=== PATIENT | female | born 1940 | race Caucasian/White ===

== ENCOUNTER 2017-12-01 14:09 | Inpatient (IN) | payer MEDICARE, BC ==
[2017-12-01 14:27] LABS: Glucose,Whole Blood 94 mg/dL (75-99)
--- NOTE | 2017-12-01 14:39 | ED ---
General Adult HPI - General Chief complaint: Neuro Symptoms/Deficit Stated complaint: Facial Numbness Source: patient Mode of arrival: ambulatory Limitations: no limitations - History of Present Illness Initial comments: Dictation was produced using [employer] dictation software. please excuse any grammatical, word or spelling errors. Chief Complaint: 77-year-old female with no significant past medical history presents with left facial droop History of Present Illness: 76-year-old female with no significant past medical history presents with left facial droop. Patient was at lunch with her family at approximately noon when her family noticed her facial droop however this was upon first encounter. Patient does not know when her facial droop started. She does not complain of any other symptoms. She does not know exactly when her symptoms started. Patient denies any other neuro deficits. She is accompanied by family who does not notice any confusion or ataxia. Denies any history of CVA or TIAs in the past. The ROS documented in this emergency department record has been reviewed and confirmed by me. Those systems with pertinent positive or negative responses have been documented in the HPI. All other systems are other negative and/or noncontributory. - Related Data Home Medications Medication Instructions Recorded Confirmed Biotin 5 mg PO DAILY 12/01/17 12/01/17 Cholecalciferol (Vitamin D3) 2,000 unit PO DAILY 12/01/17 12/01/17 [Vitamin D3] Cinnamon Bark [Cinnamon] 500 mg PO DAILY 12/01/17 12/01/17 Cyanocobalamin (Vitamin B-12) 5,000 mcg PO MOFR 12/01/17 12/01/17 [Vitamin B12] Folic Acid(Unknown) 1 tab PO DAILY 12/01/17 12/01/17 Allergies Allergy/AdvReac Type Severity Reaction Status Date / Time amoxicillin Allergy Rash/Hives Verified 12/01/17 15:00 codeine Allergy Rash/Hives/ Verified 12/01/17 15:00 Hallucinati ons morphine Allergy Rash/Hives/ Verified 12/01/17 15:00 Hallucinati ons Penicillins Allergy Rash/Hives Verified 12/01/17 15:00 ondansetron [From Zofran] AdvReac Nausea & Verified 12/01/17 15:00 Vomiting Review of Systems ROS Statement: Those systems with pertinent positive or pertinent negative responses have been documented in the HPI. ROS Other: All systems not noted in ROS Statement are negative. Past Medical History Past Medical History: No Reported History History of Any Multi-Drug Resistant Organisms: None Reported Past Surgical History: Hysterectomy Additional Past Surgical History / Comment(s): lymph node removed on the lung, ovarian cyst removal left side Past Psychological History: No Psychological Hx Reported Smoking Status: Never smoker Past Alcohol Use History: None Reported Past Drug Use History: None Reported General Exam - General Exam Comments Initial Comments: PHYSICAL EXAM: General Impression: Alert and oriented x3, not in acute distress HEENT: Normocephalic atraumatic, extra-ocular movements intact, pupils equal and reactive to light bilaterally, mucous membranes moist. Cardiovascular: Heart regular rate and rhythm, S1&S2 audible, no murmurs, rubs or gallops Chest: Lungs clear to auscultation bilaterally, no rhonchi, no wheeze, no rales Abdomen: Bowel sounds present, abdomen soft, non-tender, non-distended, no organomegaly Musculoskeletal: Pulses present and equal in all extremities, no peripheral edema Motor: Power 5/5 bilaterally, no focal deficits noted Neurological: Left lower face facial droop Skin: Intact with no visualized rashes Psych: Normal affect and mood Limitations: no limitations Course Vital Signs 12/01/17 12/01/17 14:12 15:19 Temperature 98.4 F Pulse Rate 80 78 Respiratory 18 18 Rate Blood Pressure 186/77 169/83 O2 Sat by Pulse 96 96 Oximetry Medical Decision Making - Medical Decision Making ED course: 37-year-old female with no significant comorbidities presents with clinical presentation suspicious for CVA. As upon arrival shows blood pressure 186/77. Physical examination shows left facial droop. No other neuro deficits noted. No clear time of onset of her strokelike symptoms. Patient not a candidate for TPA at this time.Laboratory evaluation obtained. CBC unremarkable. Coag panel unremarkable. Metabolic panel shows no acute processes. Cardiac enzymes are negative, urinalysis is negative. EKG shows no acute processes. Patient given an aspirin. Computed tomography scan was obtained showing no acute processes. Patient given aspirin. Patient be admitted for CVA. EKG Interpretation: A 12 lead EKG was obtained. It was interpreted by myself and attending physician. There is a P wave before every QRS complex. Rate is 77. Rhythm is normal sinus rhythm, UT interval 152, QS 90, QTc 445. QT is not prolonged. No ST segment depression or elevation. Overall, this EKG is unremarkable - Lab Data Result diagrams: 12/01/17 14:55 12/01/17 14:55 Lab Results 12/01/17 12/01/17 12/01/17 Range/Units 14:25 14:55 14:55 WBC 5.1 (3.8-10.6) k/uL RBC 4.59 (3.80-5.40) m/uL Hgb 13.6 (11.4-16.0) gm/dL Hct 43.1 (34.0-46.0) % MCV 94.0 (80.0-100.0) fL MCH 29.6 (25.0-35.0) pg MCHC 31.5 (31.0-37.0) g/dL RDW 14.0 (11.5-15.5) % Plt Count 260 (150-450) k/uL Neutrophils % 58 % Lymphocytes % 33 % Monocytes % 6 % Eosinophils % 1 % Basophils % 0 % Neutrophils # 2.9 (1.3-7.7) k/uL Lymphocytes # 1.7 (1.0-4.8) k/uL Monocytes # 0.3 (0-1.0) k/uL Eosinophils # 0.0 (0-0.7) k/uL Basophils # 0.0 (0-0.2) k/uL PT (9.0-12.0) sec INR (<1.2) APTT (22.0-30.0) sec Sodium (137-145) mmol/L Potassium (3.5-5.1) mmol/L Chloride (98-107) mmol/L Carbon Dioxide (22-30) mmol/L Anion Gap mmol/L BUN (7-17) mg/dL Creatinine (0.52-1.04) mg/dL Est GFR (CKD-EPI)AfAm (>60 ml/min/1.73 sqM) Est GFR (CKD-EPI)NonAf (>60 ml/min/1.73 sqM) Glucose (74-99) mg/dL POC Glucose (mg/dL) 94 (75-99) mg/dL POC Glu Retail Field Supervisor ID Lola Delaney Calcium (8.4-10.2) mg/dL Total Bilirubin (0.2-1.3) mg/dL AST (14-36) U/L ALT (9-52) U/L Alkaline Phosphatase (38-126) U/L Total Creatine Kinase 103 (30-135) U/L CK-MB (CK-2) 1.2 (0.0-2.4) ng/mL CK-MB (CK-2) Rel Index 1.2 Troponin I <0.012 (0.000-0.034) ng/mL Total Protein (6.3-8.2) g/dL Albumin (3.5-5.0) g/dL Urine Color Urine Appearance (Clear) Urine pH (5.0-8.0) Ur Specific [place] (1.001-1.035) Urine Protein (Negative) Urine Glucose (UA) (Negative) Urine Ketones (Negative) Urine Blood (Negative) Urine Nitrite (Negative) Urine Bilirubin (Negative) Urine Urobilinogen (<2.0) mg/dL Ur Leukocyte Esterase (Negative) 12/01/17 12/01/17 12/01/17 Range/Units 14:55 14:55 14:55 WBC (3.8-10.6) k/uL RBC (3.80-5.40) m/uL Hgb (11.4-16.0) gm/dL Hct (34.0-46.0) % MCV (80.0-100.0) fL MCH (25.0-35.0) pg MCHC (31.0-37.0) g/dL RDW (11.5-15.5) % Plt Count (150-450) k/uL Neutrophils % % Lymphocytes % % Monocytes % % Eosinophils % % Basophils % % Neutrophils # (1.3-7.7) k/uL Lymphocytes # (1.0-4.8) k/uL Monocytes # (0-1.0) k/uL Eosinophils # (0-0.7) k/uL Basophils # (0-0.2) k/uL PT 9.9 (9.0-12.0) sec INR 1.0 (<1.2) APTT 22.9 (22.0-30.0) sec Sodium 141 (137-145) mmol/L Potassium 4.1 (3.5-5.1) mmol/L Chloride 104 (98-107) mmol/L Carbon Dioxide 26 (22-30) mmol/L Anion Gap 11 mmol/L BUN 20 H (7-17) mg/dL Creatinine 0.80 (0.52-1.04) mg/dL Est GFR (CKD-EPI)AfAm 84 (>60 ml/min/1.73 sqM) Est GFR (CKD-EPI)NonAf 73 (>60 ml/min/1.73 sqM) Glucose 103 H (74-99) mg/dL POC Glucose (mg/dL) (75-99) mg/dL POC Glu Retail Field Supervisor ID Calcium 9.9 (8.4-10.2) mg/dL Total Bilirubin 0.6 (0.2-1.3) mg/dL AST 33 (14-36) U/L ALT 29 (9-52) U/L Alkaline Phosphatase 72 (38-126) U/L Total Creatine Kinase (30-135) U/L CK-MB (CK-2) (0.0-2.4) ng/mL CK-MB (CK-2) Rel Index Troponin I (0.000-0.034) ng/mL Total Protein 8.0 (6.3-8.2) g/dL Albumin 4.6 (3.5-5.0) g/dL Urine Color Light Yellow Urine Appearance Clear (Clear) Urine pH 6.5 (5.0-8.0) Ur Specific [place] 1.006 (1.001-1.035) Urine Protein Negative (Negative) Urine Glucose (UA) Negative (Negative) Urine Ketones Negative (Negative) Urine Blood Negative (Negative) Urine Nitrite Negative (Negative) Urine Bilirubin Negative (Negative) Urine Urobilinogen <2.0 (<2.0) mg/dL Ur Leukocyte Esterase Negative (Negative) Disposition Clinical Impression: Cerebrovascular accident Disposition: ADMITTED IP TO THIS HOSP Condition: Fair Referrals: Chadd Patel MD [Primary Care Provider] - 1-2 days Time of Disposition: 16:25
[2017-12-01 15:09] LABS: Appearance,Urine Clear (Clear); Bilirubin,Urine Negative (Negative); Blood,Urine Negative (Negative); Color,Urine Light Yellow; Glucose,Urine (UA) Negative (Negative); Ketones,Urine Negative (Negative); Leukocyte Esterase,Urine Negative (Negative); Nitrite,Urine Negative (Negative); PH, Urine 6.5 (5.0-8.0); Protein,Urine Negative (Negative); Specific Gravity,Urine 1.006 (1.001-1.035); Urobilinogen,Urine <2.0 mg/dL (<2.0)
[2017-12-01 15:16] LABS: Basophils % (A) 0 %; Eosinophils % (A) 1 %; HCT 43.1 % (34.0-46.0); HGB 13.6 gm/dL (11.4-16.0); Lymphocytes # (A) 1.7 k/uL (1.0-4.8); Lymphocytes % (A) 33 %; MCH 29.6 pg (25.0-35.0); MCHC 31.5 g/dL (31.0-37.0); Mean Platelet Volume 6.8; Monocytes # (A) 0.3 k/uL (0-1.0); Monocytes % (A) 6 %; Neutrophils # (A) 2.9 k/uL (1.3-7.7); Neutrophils % (A) 58 %; Platelet Count 260 k/uL (150-450); RBC 4.59 m/uL (3.80-5.40); WBC 5.1 k/uL (3.8-10.6)
[2017-12-01 15:19] LABS: Partial Thromboplastin Time 22.9 sec (22.0-30.0); Prothrombin Time 9.9 sec (9.0-12.0)
[2017-12-01 15:31] LABS: Creatine Kinase 103 U/L (30-135)
[2017-12-01 15:37] LABS: Albumin 4.6 g/dL (3.5-5.0); Calcium 9.9 mg/dL (8.4-10.2); Potassium 4.1 mmol/L (3.5-5.1); Total Bilirubin 0.6 mg/dL (0.2-1.3)
[2017-12-01 15:45] LABS: Creatine Kinase MB 1.2 ng/mL (0.0-2.4); Troponin I <0.012 ng/mL (0.000-0.034)
[2017-12-01] MEDS ORDERED: NALOXONE 0.4 MG/ML 1 ML VIAL IV PRN (15:52)
[2017-12-01] MEDS ORDERED: ASPIRIN 81 MG PO STA (15:56)
--- NOTE | 2017-12-01 16:13 | CT ---
EXAMINATION TYPE: CT brain wo con DATE OF EXAM: 12/01/2017 COMPARISON: None HISTORY: Left sided facial paralysis CT DLP: [address] of the brain was performed. The ventricles, basal cisterns and sulci overlying the cerebral convexities demonstrate mild enlargem ent. There is no evidence for intracranial hemorrhage or sulcal effacement. There is decreased attenuation about the periventricular white matter and deep white matter of both c erebral hemispheres, compatible with chronic small vessel ischemia. Differential diagnosis does inclu de demyelination. No mass effects are seen.No midline shift. Osseous calvarium is intact. If symptoms persist consider MRI. IMPRESSION: 1. Age related atrophic and chronic small vessel ischemic change without acute intracranial process s een at this time.
--- NOTE | 2017-12-01 16:16 | XR ---
EXAMINATION TYPE: XR chest 2V DATE OF EXAM: 12/01/2017 COMPARISON: 03/28/2013 HISTORY: Shortness of breath TECHNIQUE: Frontal and lateral views of the chest are obtained. FINDINGS: Scattered senescent parenchymal changes noted. Hyperinflation compatible with COPD. No evidence for infiltrate. No evidence for atelectasis. Heart size is stable. Mediastinal structures are stable and grossly unremarkable. No evidence for hilar prominence. Degenerative changes dorsal spine. IMPRESSION: 1. No evidence for acute pulmonary disease.
[2017-12-01] MEDS ORDERED: ASPIRIN 325 MG TAB PO STA (16:26)
--- NOTE | 2017-12-01 16:26 | P.HPIM ---
History of Present Illness H&P Date: 12/01/17 Chief Complaint: Left facial droop 77-year-old pleasant lady patient of Dr. Patel. She is healthy with known history of gallbladder stones, who was sent in the emergency room as a daughter have noticed left facial droop. Unknown length of time is unknown to patient, however the daughter mentioned that there is slight left facial droop noted. Is not accompanied by diplopia, no motor deficits or speech deficits, patient was subsequently evaluated in the emergency room. Patient denies any history of CVA hypertension TIA in the past, no diabetes mellitus no history of hypercoagulability in the past. Patient mentions that she has a left ear ache few days ago, without any sinus problems no upper respiratory, also have headache a week ago. Relieved by Tylenol. Emergency room, CT of the brain has not been performed yet, EKG shows normal sinus rhythm with poor R-wave progression, no acute ST-T wave changes, chemistries look normal, urinalysis looks normal glucose of 103, creatinine of 0.8 ER physician is concerned regarding CVA, hence the admission. Review of Systems Constitutional: Reports as per HPI, Denies anorexia, Denies chills, Denies chronic headaches, Denies chronic pain, Denies daytime sleepiness, Denies fatigue, Denies fever, Denies lethargy, Denies malaise, Denies night sweats, Denies poor appetite, Denies sweats, Denies weakness, Denies weight gain, Denies weight loss Ears, nose, mouth and throat: Reports as per HPI, Denies ant. neck pain, Denies bleeding gums, Denies dental pain, Denies dysphagia, Denies epistaxis, Denies headache, Denies hoarseness, Denies mouth pain, Denies nasal congestion, Denies nasal discharge, Denies neck fullness/pressure, Denies neck lump, Denies nose pain, Denies odynophagia, Denies post-nasal drip, Denies sinus pain, Denies sinus pressure, Denies swelling in mouth, Denies swelling in throat, Denies sore throat, Denies vertigo, Denies voice changes Cardiovascular: Reports as per HPI, Denies chest pain, Denies claudication, Denies decreased exercise tolerance, Denies dyspnea on exertion, Denies edema, Denies high blood pressure, Denies irregular heart beat, Denies leg edema, Denies lightheadedness, Denies orthopnea, Denies palpitations, Denies paroxysmal nocturnal dyspnea, Denies phlebitis, Denies rapid heart beat, Denies shortness of breath, Denies syncope Respiratory: Reports as per HPI, Denies congestion, Denies cough, Denies cough with sputum, Denies dyspnea, Denies excessive sputum, Denies hemoptysis, Denies home oxygen, Denies pain, Denies pain on inspiration, Denies pleurisy, Denies respiratory infections, Denies sleep apnea, Denies snoring, Denies wheezing Gastrointestinal: Reports as per HPI, Denies abdominal pain, Denies belching, Denies bloating, Denies BRBPR, Denies change in bowel habits, Denies coffee ground emesis, Denies constipation, Denies diarrhea, Denies dyspepsia, Denies early satiety, Denies excessive gas, Denies heartburn, Denies hematemesis, Denies hematochezia, Denies indigestion, Denies jaundice, Denies lactose intolerance, Denies loss of appetite, Denies melena, Denies nausea, Denies vomiting Genitourinary: Reports as per HPI, Denies abnormal vaginal bleeding, Denies decreased libido, Denies difficulty conceiving, Denies difficulty voiding, Denies dysmenorrhea, Denies dyspareunia, Denies dysuria, Denies flank pain, Denies genital sores, Denies hematuria, Denies hot flashes, Denies incomplete emptying, Denies kidney stones, Denies menorrhagia, Denies mixed incontinence, Denies nocturia, Denies pelvic pain, Denies post void dribbling, Denies , Denies prolapse symptoms, Denies stress incontinence, Denies urge incontinence , Denies urgency, Denies urinary frequency, Denies vaginal discharge, Denies vaginal dryness, Denies vaginal itching, Denies vaginal odor Menstruation: Reports as per HPI, Denies amenorrhea, Denies amenorrhea on BC, Denies currently menstrual, Denies cycle < 21 days, Denies cycle > 35 days, Denies cycle variable, Denies menses 1-7 days, Denies menses 8 or > days, Denies menses variable, Denies period heavy, Denies period light, Denies period normal, Denies period spotting, Denies post hysterectomy, Denies postmenopausal , Denies premenarcheal Musculoskeletal: Reports as per HPI Integumentary: Reports as per HPI Neurological: Reports as per HPI, Reports headaches, Denies aphasia, Denies ataxia, Denies balance difficulties, Denies burning pain, Denies change in mentation, Denies change in smell/taste, Denies change in speech, Denies confusion, Denies convulsions, Denies double vision, Denies gait dysfunction, Denies head injury, Denies hearing difficulties, Denies lack of coordination, Denies loss of vision, Denies memory loss, Denies migraines, Denies motor disturbance, Denies numbness, Denies paralysis, Denies paresthesias, Denies seizures, Denies sensory deficit, Denies spasticity, Denies syncope, Denies tic , Denies tingling, Denies transient paralysis, Denies tremors, Denies vertigo, Denies weakness, Denies visual changes Psychiatric: Reports as per HPI, Denies anhedonia, Denies anxiety, Denies anxiety attacks, Denies change in appetite, Denies change in libido, Denies change in sleep habits, Denies confusion, Denies depression, Denies difficulty concentrating, Denies disorientation, Denies hallucinations, Denies hopelessness , Denies hypersomnia, Denies insomnia, Denies irritability, Denies memory loss, Denies mood swings, Denies paranoia, Denies sadness/tearfulness, Denies sleep disturbances, Denies suicidal ideation Endocrine: Reports as per HPI, Denies cold intolerance, Denies deepening of the voice, Denies excessive sweating, Denies excessive thirst, Denies fatigue, Denies flushing, Denies heat intolerance, Denies high blood sugars, Denies increase in ring/shoe/hat size, Denies low blood sugars, Denies nocturia, Denies palpitations, Denies polydipsia, Denies polyphagia, Denies polyuria, Denies proptosis, Denies recent glucocorticoid use, Denies thyroid mass, Denies weight change Hematologic/Lymphatic: Reports as per HPI Allergic/Immunologic: Reports as per HPI Past Medical History Past Medical History: No Reported History Additional Past Medical History / Comment(s): Gallstones History of Any Multi-Drug Resistant Organisms: None Reported Past Surgical History: Hysterectomy Additional Past Surgical History / Comment(s): lymph node removed on the lung, ovarian cyst removal left side Past Psychological History: No Psychological Hx Reported Smoking Status: Never smoker Past Alcohol Use History: None Reported Past Drug Use History: None Reported Additional History: Father 78 secondary to CHF, mother 71 secondary to CHF, for sisters one from breast cancer, history of CVA, 3 brothers from CAD, other 3 brothers are alive and well, one daughter healthy 3 sons healthy Medications and Allergies Home Medications Medication Instructions Recorded Confirmed Type Biotin 5 mg PO DAILY 12/01/17 12/01/17 History Cholecalciferol (Vitamin D3) 2,000 unit PO DAILY 12/01/17 12/01/17 History [Vitamin D3] Cinnamon Bark [Cinnamon] 500 mg PO DAILY 12/01/17 12/01/17 History Cyanocobalamin (Vitamin B-12) 5,000 mcg PO MOFR 12/01/17 12/01/17 History [Vitamin B12] Folic Acid(Unknown) 1 tab PO DAILY 12/01/17 12/01/17 History Allergies Allergy/AdvReac Type Severity Reaction Status Date / Time amoxicillin Allergy Rash/Hives Verified 12/01/17 15:00 codeine Allergy Rash/Hives/ Verified 12/01/17 15:00 Hallucinati ons morphine Allergy Rash/Hives/ Verified 12/01/17 15:00 Hallucinati ons Penicillins Allergy Rash/Hives Verified 12/01/17 15:00 ondansetron [From Zofran] AdvReac Nausea & Verified 12/01/17 15:00 Vomiting Physical Exam Vitals: Vital Signs Temp Pulse Resp BP Pulse Ox 12/01/17 15:19 78 18 169/83 96 12/01/17 14:12 98.4 F 80 18 186/77 96 Intake and Output 12/01/17 12/01/17 12/01/17 06:59 14:59 22:59 Other: Weight 62.142 kg - Constitutional General appearance: cooperative, no acute distress - EENT Eyes: abnormal pupil, EOMI, PERRLA - Neck Neck: no lymphadenopathy, normal ROM, no other, no rigidity, no stridor, no thyromegaly - Respiratory Respiratory: bilateral: CTA, negative: dullness, rales, rhonchi, wheezing - Cardiovascular Rhythm: regular Heart sounds: normal: S1, S2 Abnormal Heart Sounds: no systolic murmur, no diastolic murmur, no rub, no S3 Gallop, no S4 Gallop, no click, no other - Gastrointestinal General gastrointestinal: normal bowel sounds, soft - Integumentary Integumentary: normal - Neurologic There is slight facial droop noted, and asymmetric lip contours, 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 cranial nerve left side no diplopia Neurologic: CNII-XII intact - Musculoskeletal Musculoskeletal: gait normal, strength equal bilaterally - Psychiatric Psychiatric: A&O x's 3, appropriate affect, intact judgment & insight Results CBC & Chem 7: 12/01/17 14:55 12/01/17 14:55 Labs: Abnormal Lab Results - Last 24 Hours (Table) 12/01/17 Range/Units 14:55 BUN 20 H (7-17) mg/dL Glucose 103 H (74-99) mg/dL Laboratory Results WBC 5.1 k/uL (3.8-10.6) 12/01/17 14:55 RBC 4.59 m/uL (3.80-5.40) 12/01/17 14:55 Hgb 13.6 gm/dL (11.4-16.0) 12/01/17 14:55 Hct 43.1 % (34.0-46.0) 12/01/17 14:55 MCV 94.0 fL (80.0-100.0) 12/01/17 14:55 MCH 29.6 pg (25.0-35.0) 12/01/17 14:55 MCHC 31.5 g/dL (31.0-37.0) 12/01/17 14:55 RDW 14.0 % (11.5-15.5) 12/01/17 14:55 Plt Count 260 k/uL (150-450) 12/01/17 14:55 Neutrophils % 58 % 12/01/17 14:55 Lymphocytes % 33 % 12/01/17 14:55 Monocytes % 6 % 12/01/17 14:55 Eosinophils % 1 % 12/01/17 14:55 Basophils % 0 % 12/01/17 14:55 Neutrophils # 2.9 k/uL (1.3-7.7) 12/01/17 14:55 Lymphocytes # 1.7 k/uL (1.0-4.8) 12/01/17 14:55 Monocytes # 0.3 k/uL (0-1.0) 12/01/17 14:55 Eosinophils # 0.0 k/uL (0-0.7) 12/01/17 14:55 Basophils # 0.0 k/uL (0-0.2) 12/01/17 14:55 PT 9.9 sec (9.0-12.0) 12/01/17 14:55 INR 1.0 (<1.2) 12/01/17 14:55 APTT 22.9 sec (22.0-30.0) 12/01/17 14:55 Sodium 141 mmol/L (137-145) 12/01/17 14:55 Potassium 4.1 mmol/L (3.5-5.1) 12/01/17 14:55 Chloride 104 mmol/L (98-107) 12/01/17 14:55 Carbon Dioxide 26 mmol/L (22-30) 12/01/17 14:55 Anion Gap 11 mmol/L 12/01/17 14:55 BUN 20 mg/dL (7-17) H 12/01/17 14:55 Creatinine 0.80 mg/dL (0.52-1.04) 12/01/17 14:55 Est GFR (CKD-EPI)AfAm 84 (>60 ml/min/1.73 sqM) 12/01/17 14:55 Est GFR (CKD-EPI)NonAf 73 (>60 ml/min/1.73 sqM) 12/01/17 14:55 Glucose 103 mg/dL (74-99) H 12/01/17 14:55 POC Glucose (mg/dL) 94 mg/dL (75-99) 12/01/17 14:25 POC Glu Auto Transmission Technician Lola Price 12/01/17 14:25 Calcium 9.9 mg/dL (8.4-10.2) 12/01/17 14:55 Total Bilirubin 0.6 mg/dL (0.2-1.3) 12/01/17 14:55 AST 33 U/L (14-36) 12/01/17 14:55 ALT 29 U/L (9-52) 12/01/17 14:55 Alkaline Phosphatase 72 U/L (38-126) 12/01/17 14:55 Total Creatine Kinase 103 U/L (30-135) 12/01/17 14:55 CK-MB (CK-2) 1.2 ng/mL (0.0-2.4) 12/01/17 14:55 CK-MB (CK-2) Rel Index 1.2 12/01/17 14:55 Troponin I <0.012 ng/mL (0.000-0.034) 12/01/17 14:55 Total Protein 8.0 g/dL (6.3-8.2) 12/01/17 14:55 Albumin 4.6 g/dL (3.5-5.0) 12/01/17 14:55 Urine Color Light Yellow 12/01/17 14:55 Urine Appearance Clear (Clear) 12/01/17 14:55 Urine pH 6.5 (5.0-8.0) 12/01/17 14:55 Ur Specific [place] 1.006 (1.001-1.035) 12/01/17 14:55 Urine Protein Negative (Negative) 12/01/17 14:55 Urine Glucose (UA) Negative (Negative) 12/01/17 14:55 Urine Ketones Negative (Negative) 12/01/17 14:55 Urine Blood Negative (Negative) 12/01/17 14:55 Urine Nitrite Negative (Negative) 12/01/17 14:55 Urine Bilirubin Negative (Negative) 12/01/17 14:55 Urine Urobilinogen <2.0 mg/dL (<2.0) 12/01/17 14:55 Ur Leukocyte Esterase Negative (Negative) 12/01/17 14:55 Thrombosis Risk Factor Assmnt - DVT/VTE Prophylaxis DVT/VTE Prophylaxis: Mechanical Prophylaxis ordered, Low risk, early ambulation encouraged Assessment and Plan Plan: 1. 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 However with coexisting 6 th cranial nerve paralysis, cannot rule out brainstem lesion CVA. MRI of the brain to be done, CTA of the neck, echocardiogram. Consult with neurology, aspirin daily. Monitor for other neurologic changes, currently no dysarthria, no dysphagia, 2. Recent gallstone symptom, resolved one and half months ago 3. Menopause without any hormonal replacement therapy 4. GI prophylaxis 5. DVT prophylaxis.
[2017-12-01] MEDS: HEPARIN SODIUM,PORCINE 5,000 UNIT/ML 1 ML VIAL SQ SCH ×2 (17:21→23:30)
--- NOTE | 2017-12-01 17:48 | CT ---
EXAMINATION TYPE: CT angio head neck DATE OF EXAM: 12/01/2017 HISTORY: Facial numbness COMPARISON: CT DLP: 230 mGycm. Automated Exposure Control for Dose Reduction was Utilized. TECHNIQUE: CTA scan of the neck is performed with IV Contrast, patient injected with 65 mL of Isovue 370, axial images are obtained, coronal and sagittal reformatted images are reviewed. Three-D recons tructed images are created on an independent workstation and reviewed. FINDINGS: There is normal branching pattern of the great vessels on the aortic arch. There is bilateral arteria l flow in the vertebral arteries which are fairly symmetric. There is arterial flow in the common int ernal and external carotid arteries bilaterally. There is mild atherosclerotic plaque at the carotid artery bifurcations and lumen narrowing up to 20%. There is no evidence of carotid or vertebral arter y aneurysm or dissection. There is arterial flow in the vertebrobasilar artery system. There is arterial flow in the anterior m iddle and posterior cerebral arteries. I see no evidence of aneurysm or neovascularity. There is no m ass effect. There is no evidence of stenosis. There is normal contrast opacification of the venous si nuses. There is no evidence of spasm. Impression Minimal atheromatous change at the carotid artery bifurcations and less than 20% narrowing. Otherwise negative exam.
[2017-12-01] MEDS: FAMOTIDINE 20 MG TAB PO SCH (20:38)
[2017-12-01] MEDS: SODIUM CHLORIDE 0.9% 1,000 ML IV SCH (23:30)
[2017-12-02 06:07] LABS: Basophils % (A) 0 %; Eosinophils % (A) 1 %; HCT 39.7 % (34.0-46.0); HGB 12.4 gm/dL (11.4-16.0); Lymphocytes # (A) 1.1 k/uL (1.0-4.8); Lymphocytes % (A) 27 %; MCH 29.3 pg (25.0-35.0); MCHC 31.2 g/dL (31.0-37.0); Mean Platelet Volume 6.4; Monocytes # (A) 0.3 k/uL (0-1.0); Monocytes % (A) 7 %; Neutrophils # (A) 2.6 k/uL (1.3-7.7); Neutrophils % (A) 63 %; Platelet Count 214 k/uL (150-450); RBC 4.22 m/uL (3.80-5.40); WBC 4.2 k/uL (3.8-10.6)
[2017-12-02 06:27] LABS: Calcium 9.2 mg/dL (8.4-10.2); Potassium 4.2 mmol/L (3.5-5.1)
[2017-12-02] MEDS: ASPIRIN 325 MG TAB PO SCH ×2 (09:08→09:14)
[2017-12-02] MEDS: FAMOTIDINE 20 MG TAB PO SCH ×2 (09:09→20:26)
[2017-12-02] MEDS: HEPARIN SODIUM,PORCINE 5,000 UNIT/ML 1 ML VIAL SQ SCH ×3 (09:09→23:03)
[2017-12-02] MEDS: FOLIC ACID 1 MG TAB PO SCH (09:09)
[2017-12-02] MEDS: CHOLECALCIFEROL 1,000 UNIT TAB PO SCH (09:09)
--- NOTE | 2017-12-02 11:22 | MR ---
EXAMINATION TYPE: MR brain wo/w con DATE OF EXAM: 12/02/2017 COMPARISON: CT scan 12/01/2017 HISTORY: cva facial droom 6th cranial n paresis, brain stem TECHNIQUE: Multiplanar, multisequence images of the brain and brainstem is performed without and with IV contras t, utilizing 6.5 mL intravenous Gadavist . FINDINGS: Diffusion weighted images demonstrate small focal area of increased signal on diffusion jonathon ging within the right parietal cortex measuring less than a centimeter. There are additional multifocal areas of abnormal signal scattered throughout the white matter bilate rally. Findings are nonspecific but most of remote microvascular ischemia. Within the chris and within the basal ganglia there are small subcentimeter areas of abnormal signal s uggestive of remote ischemia. Midline structures demonstrate normal morphology. The craniocervical junction appears within normal limits. Post contrast images demonstrate no abnormal enhancement. The dural venous sinuses appear pa tent. The visualized sinuses are clear and the globes are intact. IMPRESSION: 1. Subcentimeter tiny area of abnormal signal on diffusion within the right parietal cortex compatibl e with an area of acute ischemia. Report called to the patient's nurse.
[2017-12-02] MEDS: LISINOPRIL 10 MG TAB PO SCH (12:08)
[2017-12-02] MEDS: CLOPIDOGREL 75 MG TAB PO SCH (12:08)
--- NOTE | 2017-12-02 12:43 | ECHOF ---
Referral Reason:cva MEASUREMENTS -------- HEIGHT: 157.5 cm WEIGHT: 60.8 kg BP: 161/75 RVIDd: 3.2 cm (< 3.3) IVSd: 1.0 cm (0.6 - 1.1) LVIDd: 4.4 cm (3.9 - 5.3) LVPWd: 1.1 cm (0.6 - 1.1) IVSs: 1.3 cm LVIDs: 3.0 cm LVPWs: 1.5 cm LAESV Index (A-L): 24.87 ml/m Ao Diam: 3.1 cm (2.0 - 3.7) AV Cusp: 2.1 cm (1.5 - 2.6) LA Diam: 2.8 cm (2.7 - 3.8) EPSS: 0.9 cm MV E Jean Paul: 0.60 m/s MV DecT: 262 ms MV A Jean Paul: 0.96 m/s MV E/A Ratio: 0.62 RAP: 5.00 mmHg RVSP: 18.03 mmHg MV EF SLOPE: 77.59 mm/s (70 - 150) MV EXCURSION: 2.24 cm (> 18.000) FINDINGS -------- Sinus rhythm. This was a technically good study. The left ventricular size is normal. Left ventricular wall thickness is normal. Overall left vent ricular systolic function is normal with, an EF between 55 - 60 %. The right ventricle is normal in size and function. Normal LA size by volume 22+/-6 ml/m2. The right atrium is normal in size. The aortic valve is trileaflet and appears structurally normal. Trace to mild aortic regurgitation. The mitral valve is normal. Mild mitral regurgitation is present. Mild tricuspid regurgitation present. Right ventricular systolic pressure is normal at < 35 mmHg. There is no evidence of pulmonary hypertension. Trace/mild (physiologic) pulmonic regurgitation. The aortic root size is normal. Normal inferior vena cava with normal inspiratory collapse consistent with estimated right atrial pre ssure of 5 mmHg. There is no pericardial effusion. CONCLUSIONS -------- 1. Sinus rhythm. 2. This was a technically good study. 3. The left ventricular size is normal. 4. Left ventricular wall thickness is normal. 5. Overall left ventricular systolic function is normal with, an EF between 55 - 60 %. 6. Normal LA size by volume 22+/-6 ml/m2. 7. The aortic valve is trileaflet and appears structurally normal. 8. Trace to mild aortic regurgitation. 9. Mild mitral regurgitation is present. 10. Mild tricuspid regurgitation present. 11. Right ventricular systolic pressure is normal at < 35 mmHg. 12. Trace/mild (physiologic) pulmonic regurgitation. 13. The aortic root size is normal. 14. There is no pericardial effusion. STEEL CHECKER: Nicolas Anand RDCS
[2017-12-02 13:55] LABS: Hemoglobin A1C 5.8 % (4.0-6.0)
--- NOTE | 2017-12-02 14:51 | P.PN ---
Subjective Progress Note Date: 12/02/17 77-year-old pleasant lady patient of Dr. Patel. She is healthy with known history of gallbladder stones, who was sent in the emergency room as a daughter have noticed left facial droop. Unknown length of time is unknown to patient, however the daughter mentioned that there is slight left facial droop noted. Is not accompanied by diplopia, no motor deficits or speech deficits, patient was subsequently evaluated in the emergency room. Patient denies any history of CVA hypertension TIA in the past, no diabetes mellitus no history of hypercoagulability in the past. Patient mentions that she has a left ear ache few days ago, without any sinus problems no upper respiratory, also have headache a week ago. Relieved by Tylenol. Emergency room, CT of the brain has not been performed yet, EKG shows normal sinus rhythm with poor R-wave progression, no acute ST-T wave changes, chemistries look normal, urinalysis looks normal glucose of 103, creatinine of 0.8 ER physician is concerned regarding CVA, hence the admission. 12/02: CT angiogram of the head and neck reveals minimal atherosclerotic change of the carotid artery bifurcations and less than 20% narrowing. Otherwise negative exam. Triglycerides 85, cholesterol 226, LDL 148, HDL 61. Homocysteine is 12.62. TSH is 3.070. Hemoglobin A1c is 5.8. Echocardiogram reveals EF of 55-60%, mild aortic regurgitation, mild mitral regurgitation, mild tricuspid regurgitation. MRI of the brain reveals subcentimeter tiny area of abnormal signal on diffusion within the right parietal cortex compatible with an area of acute ischemia. Patient is reluctant to take aspirin as she has had problems with GI upset and bleeding. She has willing to try Plavix which will be started today. We're also adding in atorvastatin and lisinopril.. She has had no problems with bleeding while on heparin subcu. patient has done well with therapies with recommendations for discharge home. Plan to monitor patient overnight and discharged home tomorrow. Objective - Vital Signs Vital signs: Vital Signs Temp 97.7 F 12/02/17 07:38 Pulse 56 L 12/02/17 08:00 Resp 16 12/02/17 08:00 BP 152/84 12/02/17 07:38 Pulse Ox 95 12/02/17 07:38 Intake & Output 12/01/17 12/02/17 12/02/17 18:59 06:59 18:59 Intake Total 550 Balance 550 Weight 62.142 kg 60.8 kg Intake: Oral 550 Other: Voiding Method Toilet Toilet # Voids 1 - Exam General appearance: cooperative, no acute distress - EENT Eyes: abnormal pupil, EOMI, PERRLA - Neck Neck: no lymphadenopathy, normal ROM, no other, no rigidity, no stridor, no thyromegaly - Respiratory Respiratory: bilateral: CTA, negative: dullness, rales, rhonchi, wheezing - Cardiovascular Rhythm: regular Heart sounds: normal: S1, S2 Abnormal Heart Sounds: no systolic murmur, no diastolic murmur, no rub, no S3 Gallop, no S4 Gallop, no click, no other - Gastrointestinal General gastrointestinal: normal bowel sounds, soft - Integumentary Integumentary: normal - Neurologic There is slight facial droop noted, and asymmetric lip contours, 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 cranial nerve left side no diplopia Neurologic: CNII-XII intact - Musculoskeletal Musculoskeletal: gait normal, strength equal bilaterally - Psychiatric Psychiatric: A&O x's 3, appropriate affect, intact judgment & insight - Labs CBC & Chem 7: 12/02/17 05:53 12/02/17 05:53 Labs: Abnormal Lab Results - Last 24 Hours (Table) 12/01/17 12/02/17 Range/Units 14:55 05:53 BUN 20 H 20 H (7-17) mg/dL Glucose 103 H (74-99) mg/dL Cholesterol 226 H (<200) mg/dL LDL Cholesterol, Calc 148 H (0-99) mg/dL HDL Cholesterol 61 H (40-60) mg/dL Assessment and Plan Plan: 1. Right parietal ischemic stroke. Consult with neurology. Lasix 75 mg daily started. Monitor for other neurologic changes, currently no dysarthria, no dysphagia, 2. Recent gallstone symptom, resolved one and half months ago 3. Menopause without any hormonal replacement therapy 4. GI prophylaxis 5. DVT prophylaxis. Discharge plan: Home tomorrow Impression and plan of care have been directed as dictated by the signing physician. Mona Bravo nurse practitioner acting as scribe for signing physician.
[2017-12-02] MEDS ORDERED: ASPIRIN 325 MG TAB PO SCH (16:27)
[2017-12-02] MEDS: SODIUM CHLORIDE 0.9% 1,000 ML IV SCH (17:44)
--- NOTE | 2017-12-02 17:52 | P.CONS ---
History of Present Illness - Reason for Consult Consult date: 12/02/17 Stroke - Chief Complaint Facial droop - History of Present Illness This is a pleasant 77-year-old female being evaluated by the neurology service for stroke. He was noticed to have left facial droop by her daughter. Had no other focal neurological deficits. She denies headache or recent illness. CT of the brain done in the ER showed no acute intracranial process. It did show age-appropriate cerebral atrophy with chronic small vessel ischemic changes. Her CTA showed no flow-limiting stenosis. Subsequent MRI of the brain showed a subcentimeter tiny area of abnormal signal within the right parietal cortex compatible with an area of acute ischemia. There was also some old subcentimeter areas of abnormal signal suggestive of remote ischemia within the chris and basal ganglia. Lipid panel shows triglycerides of 85, cholesterol 226, LDL 148, HDL of 61. Her homocysteine level is 12.62. Her echocardiogram revealed an ejection fraction of 55-60%. He has been started on Plavix, atorvastatin, and lisinopril. He has had no further neurological deficits since admission. She feels her left facial droop is improving. She is having no troubles speaking or swallowing. 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", ovarian cyst removal left side, colonoscopy/polypectomy-benign Past Anesthesia/Blood Transfusion Reactions: Motion Sickness, Postoperative Nausea & Vomiting (PONV) Smoking Status: Never smoker - Past Family History Sister(s) Family Medical History: Cancer Additional Family Medical History / Comment(s): breast cancer Brother(s) Family Medical History: Cancer Additional Family Medical History / Comment(s): colon cancer Medications and Allergies Home Medications Medication Instructions Recorded Confirmed Type Biotin 5 mg PO DAILY 12/01/17 12/01/17 History Cholecalciferol (Vitamin D3) 2,000 unit PO DAILY 12/01/17 12/01/17 History [Vitamin D3] Cinnamon Bark [Cinnamon] 500 mg PO DAILY 12/01/17 12/01/17 History Cyanocobalamin (Vitamin B-12) 5,000 mcg PO MOFR 12/01/17 12/01/17 History [Vitamin B12] Folic Acid(Unknown) 1 tab PO DAILY 12/01/17 12/01/17 History Allergies Allergy/AdvReac Type Severity Reaction Status Date / Time amoxicillin Allergy Rash/Hives Verified 12/01/17 15:00 codeine Allergy Rash/Hives/ Verified 12/01/17 15:00 Hallucinati ons morphine Allergy Rash/Hives/ Verified 12/01/17 15:00 Hallucinati ons Penicillins Allergy Rash/Hives Verified 12/01/17 15:00 ondansetron [From Zofran] AdvReac Nausea & Verified 12/01/17 15:00 Vomiting Physical Exam Vitals: Vital Signs Temp Pulse Pulse Resp BP Pulse Ox 12/02/17 15:00 97.3 F L 68 16 151/70 12/02/17 12:00 56 L 67 16 12/02/17 11:45 98.3 F 67 16 181/83 12/02/17 08:00 56 L 16 12/02/17 07:38 97.7 F 65 16 152/84 95 12/02/17 05:26 97.8 F 60 17 161/75 12/02/17 03:35 60 17 12/02/17 03:26 97.5 F L 60 17 162/75 96 12/02/17 01:26 97.8 F 65 17 165/70 95 12/02/17 00:00 60 18 12/01/17 23:26 97.5 F L 60 18 159/64 93 L 12/01/17 21:26 97.9 F 75 17 176/80 95 12/01/17 19:26 97.8 F 73 17 180/85 96 12/01/17 18:26 190/90 12/01/17 17:51 98.8 F Intake and Output 12/02/17 12/02/17 12/02/17 06:59 14:59 22:59 Intake Total 350 610 Balance 350 610 Intake: Oral 350 610 Other: Voiding Method Toilet Toilet # Voids 1 2 Weight 60.8 kg - Constitutional General appearance: average body habitus, cooperative - EENT Eyes: no abnormal pupil, EOMI, PERRLA, no ptosis ENT: hearing grossly normal - Neck Neck: normal ROM, no rigidity - Respiratory Respiratory: negative: prolonged expiration, prolonged inspiration - Cardiovascular Rhythm: regular - Gastrointestinal General gastrointestinal: no distended, no tenderness - Neurologic Patient is alert awake and oriented 3. Speech and language are normal. Left- sided facial droop remains. He has no sensory deficit. Strength is full in bilateral upper and lower extremities. There is no pronator drift. There is no dysmetria or dysdiadochokinesia. Visual shea are intact. Otherwise, cranial nerves II through XII are intact globally. No Tremors or seizure-like activities are seen. Results CBC & Chem 7: 12/02/17 05:53 12/02/17 05:53 Labs: Abnormal Lab Results - Last 24 Hours (Table) 12/02/17 Range/Units 05:53 BUN 20 H (7-17) mg/dL Cholesterol 226 H (<200) mg/dL LDL Cholesterol, Calc 148 H (0-99) mg/dL HDL Cholesterol 61 H (40-60) mg/dL Assessment and Plan (1) Weakness on left side of face Current Visit: Yes Status: Acute Code(s): R29.810 - FACIAL WEAKNESS SNOMED Code(s): 553692717 (2) Hyperlipidemia Current Visit: Yes Status: Chronic Code(s): E78.5 - HYPERLIPIDEMIA, UNSPECIFIED SNOMED Code(s): 46159779 (3) Cerebrovascular accident Current Visit: Yes Status: Acute Code(s): I63.9 - CEREBRAL INFARCTION, UNSPECIFIED SNOMED Code(s): 452216368 (4) Old lacunar stroke without late effect Current Visit: Yes Status: Suspected Code(s): Z86.73 - PRSNL HX OF TIA (TIA) , AND CEREB INFRC W/O RESID DEFICITS SNOMED Code(s): 666885841 Plan: This patient has suffered an acute ischemic stroke in the right middle cerebral artery distribution. Recommend speech therapy. Continue Plavix, Lipitor and antihypertensives as needed. We discussed the possible findings of old lacunar infarcts on her MRI of the brain. She denies any strokelike symptoms in the past. Transthoracic echocardiogram was relatively normal. No further neurological workup is needed at this time. We will follow her up in outpatient setting. Otherwise she is cleared from neurological standpoint. X I have performed a history and physical on the above patient. I have reviewed the above note, and agree.
[2017-12-02] MEDS ORDERED: ATORVASTATIN 40 MG TAB PO SCH (21:00)
[2017-12-03 06:31] LABS: Basophils % (A) 0 %; Eosinophils % (A) 0 %; HCT 42.2 % (34.0-46.0); HGB 12.9 gm/dL (11.4-16.0); Hypochromasia Slight; Lymphocytes # (A) 1.1 k/uL (1.0-4.8); Lymphocytes % (A) 28 %; MCH 29.9 pg (25.0-35.0); MCHC 30.6 g/dL (31.0-37.0); MCV 97.8 fL (80.0-100.0); Mean Platelet Volume 6.7; Monocytes # (A) 0.4 k/uL (0-1.0); Monocytes % (A) 9 %; Neutrophils # (A) 2.5 k/uL (1.3-7.7); Neutrophils % (A) 60 %; Platelet Count 226 k/uL (150-450); RBC 4.31 m/uL (3.80-5.40); WBC 4.1 k/uL (3.8-10.6)
[2017-12-03 06:40] LABS: Calcium 9.4 mg/dL (8.4-10.2); Potassium 4.6 mmol/L (3.5-5.1)
[2017-12-03 08:18] VITALS: BP 137/64; PULSE 65; RESP 18; TEMP 97.8
[2017-12-03] MEDS: FAMOTIDINE 20 MG TAB PO SCH (09:06)
[2017-12-03] MEDS: FOLIC ACID 1 MG TAB PO SCH (09:06)
[2017-12-03] MEDS: LISINOPRIL 10 MG TAB PO SCH (09:06)
[2017-12-03] MEDS: HEPARIN SODIUM,PORCINE 5,000 UNIT/ML 1 ML VIAL SQ SCH (09:06)
[2017-12-03] MEDS: CLOPIDOGREL 75 MG TAB PO SCH (09:06)
[2017-12-03] MEDS: CHOLECALCIFEROL 1,000 UNIT TAB PO SCH (09:06)
--- NOTE | 2017-12-03 10:55 | P.DS ---
Providers Date of admission: 12/01/17 15:53 Expected date of discharge: 12/03/17 Attending physician: Shelbie Light Consults: 12/01/17 15:54 Consult Physician Routine Consulting Provider: Elgin Redman Consult Reason/Comments: cva Do you want consulting provider notified?: Yes Primary care physician: [facility] Course: 77-year-old pleasant lady patient of Dr. Patel. She is healthy with known history of gallbladder stones, who was sent in the emergency room as a daughter have noticed left facial droop. Unknown length of time is unknown to patient, however the daughter mentioned that there is slight left facial droop noted. Is not accompanied by diplopia, no motor deficits or speech deficits, patient was subsequently evaluated in the emergency room. Patient denies any history of CVA hypertension TIA in the past, no diabetes mellitus no history of hypercoagulability in the past. Patient mentions that she has a left ear ache few days ago, without any sinus problems no upper respiratory, also have headache a week ago. Relieved by Tylenol. Emergency room, CT of the brain has not been performed yet, EKG shows normal sinus rhythm with poor R-wave progression, no acute ST-T wave changes, chemistries look normal, urinalysis looks normal glucose of 103, creatinine of 0.8 ER physician is concerned regarding CVA, hence the admission. 12/02: CT angiogram of the head and neck reveals minimal atherosclerotic change of the carotid artery bifurcations and less than 20% narrowing. Otherwise negative exam. Triglycerides 85, cholesterol 226, LDL 148, HDL 61. Homocysteine is 12.62. TSH is 3.070. Hemoglobin A1c is 5.8. Echocardiogram reveals EF of 55-60%, mild aortic regurgitation, mild mitral regurgitation, mild tricuspid regurgitation. MRI of the brain reveals subcentimeter tiny area of abnormal signal on diffusion within the right parietal cortex compatible with an area of acute ischemia. Patient is reluctant to take aspirin as she has had problems with GI upset and bleeding. She has willing to try Plavix which will be started today. We're also adding in atorvastatin and lisinopril.. She has had no problems with bleeding while on heparin subcu. patient has done well with therapies with recommendations for discharge home. Plan to monitor patient overnight and discharged home tomorrow. 12/03: Patient has been seen by neurology and has been cleared for discharge. No new symptoms. Her son is planning to stay with her this evening. Patient will be discharged home today in stable condition. Discharge diagnoses: 1. Right parietal ischemic stroke. 2. Recent gallstone symptom, resolved one and half months ago 3. Menopause without any hormonal replacement therapy. 4. Hypertension, new diagnosis. 5. Hyperlipidemia, new diagnosis. Discharge plan: Home Impression and plan of care have been directed as dictated by the signing physician. Mona Bravo nurse practitioner acting as scribe for signing physician. Patient Condition at Discharge: Good Plan - Discharge Summary Discharge Rx Participant: Yes New Discharge Prescriptions: New Atorvastatin [Lipitor] 40 mg PO HS #30 tab Clopidogrel [Plavix] 75 mg PO DAILY #30 tab Lisinopril [Zestril] 10 mg PO DAILY #30 tab Continue Folic Acid(Unknown) 1 tab PO DAILY Biotin 5 mg PO DAILY Cyanocobalamin (Vitamin B-12) [Vitamin B12] 5,000 mcg PO MOFR Cholecalciferol (Vitamin D3) [Vitamin D3] 2,000 unit PO DAILY Cinnamon Bark [Cinnamon] 500 mg PO DAILY Discharge Medication List Biotin 5 mg PO DAILY 12/01/17 [History] Cholecalciferol (Vitamin D3) [Vitamin D3] 2,000 unit PO DAILY 12/01/17 [History] Cinnamon Bark [Cinnamon] 500 mg PO DAILY 12/01/17 [History] Cyanocobalamin (Vitamin B-12) [Vitamin B12] 5,000 mcg PO MOFR 12/01/17 [History] Folic Acid(Unknown) 1 tab PO DAILY 12/01/17 [History] Atorvastatin [Lipitor] 40 mg PO HS #30 tab 12/03/17 [Rx] Clopidogrel [Plavix] 75 mg PO DAILY #30 tab 12/03/17 [Rx] Lisinopril [Zestril] 10 mg PO DAILY #30 tab 12/03/17 [Rx] Follow up Appointment(s)/Referral(s): Elgin Redman MD [STAFF PHYSICIAN] - 3 Weeks Chadd Patel MD [Primary Care Provider] - 1 Week Activity/Diet/Wound Care/Special Instructions: For information on [facility] call Ext [phone] given them code [id number] Discharge Disposition: HOME SELF-CARE
== END 2017-12-03 11:49 | disposition home or self-care (01) | DRG 66 ==
LOC: EC 14:09 → 6SEL 15:53
PROVIDERS: ADMIT Family Medicine; ATTEND Family Medicine
DX: I63.8 Other cerebral infarction (principal); I08.3 Combined rheumatic disorders of mitral, aortic and tricuspid valves; E78.5 Hyperlipidemia, unspecified; R29.810 Facial weakness; I10 Essential (primary) hypertension; K80.20 Calculus of gallbladder without cholecystitis without obstruction; R73.03 Prediabetes; Z86.73 Personal history of transient ischemic attack (TIA), and cerebral infarction without residual deficits; Z90.710 Acquired absence of both cervix and uterus; Z88.5 Allergy status to narcotic agent; Z88.0 Allergy status to penicillin; Z88.8 Allergy status to other drugs, medicaments and biological substances; Z85.828 Personal history of other malignant neoplasm of skin; Z87.440 Personal history of urinary (tract) infections; Z80.3 Family history of malignant neoplasm of breast; Z82.49 Family history of ischemic heart disease and other diseases of the circulatory system; Z80.0 Family history of malignant neoplasm of digestive organs; Z82.3 Family history of stroke
CPT/HCPCS: 36415; 70450; 70496; 70498; 70553; 71046; 80048; 80053; 80061; 81003; 82550; 82553; 83036; 83090; 84443; 84484; 85025; 85610; 85730; 93005; 93306; 96372; 99285

== ENCOUNTER 2017-12-04 11:40 | Emergency (ER) | payer MEDICARE, BC ==
[2017-12-04 11:46] VITALS: TEMP 98.3
[2017-12-04] MEDS ORDERED: MECLIZINE 25 MG TAB PO STA (12:19)
--- NOTE | 2017-12-04 12:22 | ED ---
General Adult HPI - General Chief complaint: Dizziness Stated complaint: dizziness Time Seen by Provider: 12/04/17 11:40 Source: patient, RN notes reviewed Mode of arrival: wheelchair Limitations: no limitations - History of Present Illness Initial comments: This is a 77-year-old female with past medical history significant for recent stroke. Patient states she also has a history of vertigo. Patient states this morning she had another episode which seemed like her vertigo except she normally leans to the right and today she felt as though she was leaning forward and to the right. Patient denies any headache patient denies any numbness weakness. Patient denies any speech disturbance or visual disturbance. Patient's family denies there is any facial droop. Patient denies any chest pain palpitations difficulty breathing shortness of breath. Patient denies any abdominal pain patient denies nausea vomiting diarrhea. - Related Data Home Medications Medication Instructions Recorded Confirmed Biotin 5 mg PO DAILY 12/01/17 12/04/17 Cholecalciferol (Vitamin D3) 2,000 unit PO DAILY 12/01/17 12/04/17 [Vitamin D3] Cinnamon Bark [Cinnamon] 500 mg PO DAILY 12/01/17 12/04/17 Cyanocobalamin (Vitamin B-12) 5,000 mcg PO MOFR 12/01/17 12/04/17 [Vitamin B12] Folic Acid(Unknown) 1 tab PO DAILY 12/01/17 12/04/17 Ubidecarenone [Co Q-10] 100 mg PO DAILY 12/04/17 12/04/17 Previous Rx's Medication Instructions Recorded Atorvastatin [Lipitor] 40 mg PO HS #30 tab 12/03/17 Clopidogrel [Plavix] 75 mg PO DAILY #30 tab 12/03/17 Lisinopril [Zestril] 10 mg PO DAILY #30 tab 12/03/17 Meclizine [Antivert] 25 mg PO TID #20 tab 12/04/17 Allergies Allergy/AdvReac Type Severity Reaction Status Date / Time amoxicillin Allergy Rash/Hives Verified 12/04/17 13:39 codeine Allergy Rash/Hives/ Verified 12/04/17 13:39 Hallucinati ons morphine Allergy Rash/Hives/ Verified 12/04/17 13:39 Hallucinati ons Penicillins Allergy Rash/Hives Verified 12/04/17 13:39 hydromorphone [From Dilaudid] AdvReac Hallucinati Verified 12/04/17 13:39 ons ondansetron [From Zofran] AdvReac Nausea & Verified 12/04/17 13:39 Vomiting Review of Systems ROS Statement: Those systems with pertinent positive or pertinent negative responses have been documented in the HPI. ROS Other: All systems not noted in ROS Statement are negative. 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 Patient is nontoxic and well- hydrated and is in mild distress. ENT: Neck is soft and supple. No significant lymphadenopathy is noted. Oropharynx is clear. Moist mucous membranes. Neck has full range of motion without eliciting any pain. EYES: The sclera were anicteric and conjunctiva were pink and moist. Extraocular movements were intact and pupils were equal round and reactive to light. Eyelids were unremarkable. PULMONARY: Unlabored respirations. Good breath sounds bilaterally. No audible rales rhonchi or wheezing was noted. CARDIOVASCULAR: There is a regular rate and rhythm without any murmurs gallops or rubs. ABDOMEN: Soft and nontender with normal bowel sounds. No palpable organomegaly was noted. There is no palpable pulsatile mass. SKIN: Skin is clear with no lesions or rashes and otherwise unremarkable. NEUROLOGIC: Patient is alert and oriented x3. Cranial nerves II through XII are grossly intact. Motor and sensory are also intact. Normal speech, volume and content. Symmetrical smile. MUSCULOSKELETAL: Normal extremities with adequate strength and full range of motion. No lower extremity swelling or edema. No calf tenderness. LYMPHATICS: No significant lymphadenopathy is noted PSYCHIATRIC: Normal psychiatric evaluation. Normal interpersonal interactions appears functionally intact in deals appropriately with others. No signs of depression. No signs of anxiety. Limitations: no limitations Course Vital Signs 12/04/17 12/04/17 12/04/17 11:43 12:34 12:41 Temperature 98.3 F Pulse Rate 67 82 Pulse Rate [ 81 Right Standing] Pulse Rate [ 73 Sitting] Pulse Rate [ 72 Supine] Respiratory 18 18 18 Rate Blood Pressure 147/87 123/71 Blood Pressure 133/70 [Right Arm Sitting] Blood Pressure 126/71 [Right Arm Standing] Blood Pressure 141/69 [Right Arm Supine] O2 Sat by Pulse 99 95 Oximetry 12/04/17 12/04/17 14:50 14:54 Temperature 98.3 F Pulse Rate 72 72 Pulse Rate [ Right Standing] Pulse Rate [ Sitting] Pulse Rate [ Supine] Respiratory 16 16 Rate Blood Pressure 135/68 135/68 Blood Pressure [Right Arm Sitting] Blood Pressure [Right Arm Standing] Blood Pressure [Right Arm Supine] O2 Sat by Pulse 99 99 Oximetry Medical Decision Making - Medical Decision Making Anytime the patient was moved in bed she felt as though the symptoms would worsen and they would improve with lying still. EKG shows normal sinus rhythm at 60 bpm ME interval 248 QRSs 80 QT interval 48 QTC is 433. Patient's EKG shows no ST segment elevation or depression or T wave abnormalities are noted. Patient's EKG shows sinus bradycardia at 49 bpm ME interval is 146 QRS is 70 QT interval 462 QTC is 417. Patient's EKG shows no ST segment elevation or depression or T wave abnormalities are noted. Patient was able to ambulate without problem. Patient's symptoms seemed much improved. - Lab Data Result diagrams: 12/04/17 12:24 12/04/17 12:24 Lab Results 12/04/17 12/04/17 12/04/17 Range/Units 12:24 12:24 12:24 WBC 5.1 (3.8-10.6) k/uL RBC 4.85 (3.80-5.40) m/uL Hgb 14.3 (11.4-16.0) gm/dL Hct 45.4 (34.0-46.0) % MCV 93.7 (80.0-100.0) fL MCH 29.5 (25.0-35.0) pg MCHC 31.5 (31.0-37.0) g/dL RDW 14.1 (11.5-15.5) % Plt Count 269 (150-450) k/uL Neutrophils % 62 % Lymphocytes % 28 % Monocytes % 8 % Eosinophils % 0 % Basophils % 0 % Neutrophils # 3.1 (1.3-7.7) k/uL Lymphocytes # 1.4 (1.0-4.8) k/uL Monocytes # 0.4 (0-1.0) k/uL Eosinophils # 0.0 (0-0.7) k/uL Basophils # 0.0 (0-0.2) k/uL PT (9.0-12.0) sec INR (<1.2) APTT (22.0-30.0) sec Sodium 141 (137-145) mmol/L Potassium 4.4 (3.5-5.1) mmol/L Chloride 104 (98-107) mmol/L Carbon Dioxide 26 (22-30) mmol/L Anion Gap 11 mmol/L BUN 25 H (7-17) mg/dL Creatinine 0.87 (0.52-1.04) mg/dL Est GFR (CKD-EPI)AfAm 76 (>60 ml/min/1.73 sqM) Est GFR (CKD-EPI)NonAf 66 (>60 ml/min/1.73 sqM) Glucose 112 H (74-99) mg/dL Calcium 10.1 (8.4-10.2) mg/dL Magnesium 2.4 H (1.6-2.3) mg/dL Total Bilirubin 0.5 (0.2-1.3) mg/dL AST 39 H (14-36) U/L ALT 34 (9-52) U/L Alkaline Phosphatase 59 (38-126) U/L Total Creatine Kinase 48 (30-135) U/L CK-MB (CK-2) 0.3 (0.0-2.4) ng/mL CK-MB (CK-2) Rel Index 0.6 Troponin I <0.012 (0.000-0.034) ng/mL Total Protein 7.7 (6.3-8.2) g/dL Albumin 4.4 (3.5-5.0) g/dL 12/04/17 Range/Units 12:24 WBC (3.8-10.6) k/uL RBC (3.80-5.40) m/uL Hgb (11.4-16.0) gm/dL Hct (34.0-46.0) % MCV (80.0-100.0) fL MCH (25.0-35.0) pg MCHC (31.0-37.0) g/dL RDW (11.5-15.5) % Plt Count (150-450) k/uL Neutrophils % % Lymphocytes % % Monocytes % % Eosinophils % % Basophils % % Neutrophils # (1.3-7.7) k/uL Lymphocytes # (1.0-4.8) k/uL Monocytes # (0-1.0) k/uL Eosinophils # (0-0.7) k/uL Basophils # (0-0.2) k/uL PT 10.1 (9.0-12.0) sec INR 1.0 (<1.2) APTT 25.6 (22.0-30.0) sec Sodium (137-145) mmol/L Potassium (3.5-5.1) mmol/L Chloride (98-107) mmol/L Carbon Dioxide (22-30) mmol/L Anion Gap mmol/L BUN (7-17) mg/dL Creatinine (0.52-1.04) mg/dL Est GFR (CKD-EPI)AfAm (>60 ml/min/1.73 sqM) Est GFR (CKD-EPI)NonAf (>60 ml/min/1.73 sqM) Glucose (74-99) mg/dL Calcium (8.4-10.2) mg/dL Magnesium (1.6-2.3) mg/dL Total Bilirubin (0.2-1.3) mg/dL AST (14-36) U/L ALT (9-52) U/L Alkaline Phosphatase (38-126) U/L Total Creatine Kinase (30-135) U/L CK-MB (CK-2) (0.0-2.4) ng/mL CK-MB (CK-2) Rel Index Troponin I (0.000-0.034) ng/mL Total Protein (6.3-8.2) g/dL Albumin (3.5-5.0) g/dL Disposition Clinical Impression: Vertigo Disposition: HOME SELF-CARE Condition: Good Instructions: Vertigo (ED) Prescriptions: Meclizine [Antivert] 25 mg PO TID #20 tab Is patient prescribed a controlled substance at d/c from ED?: No Referrals: Chadd Patel MD [Primary Care Provider] - 1-2 days Time of Disposition: 14:11
[2017-12-04 12:44] VITALS: PULSE 72
[2017-12-04 12:46] LABS: Partial Thromboplastin Time 25.6 sec (22.0-30.0); Prothrombin Time 10.1 sec (9.0-12.0)
[2017-12-04 12:48] LABS: Albumin 4.4 g/dL (3.5-5.0); Calcium 10.1 mg/dL (8.4-10.2); Magnesium 2.4 mg/dL (1.6-2.3); Potassium 4.4 mmol/L (3.5-5.1); Total Bilirubin 0.5 mg/dL (0.2-1.3); Total Protein 7.7 g/dL (6.3-8.2)
[2017-12-04 12:56] LABS: Basophils % (A) 0 %; Eosinophils % (A) 0 %; HCT 45.4 % (34.0-46.0); HGB 14.3 gm/dL (11.4-16.0); Lymphocytes # (A) 1.4 k/uL (1.0-4.8); Lymphocytes % (A) 28 %; MCH 29.5 pg (25.0-35.0); MCHC 31.5 g/dL (31.0-37.0); MCV 93.7 fL (80.0-100.0); Mean Platelet Volume 6.9; Monocytes # (A) 0.4 k/uL (0-1.0); Monocytes % (A) 8 %; Neutrophils # (A) 3.1 k/uL (1.3-7.7); Neutrophils % (A) 62 %; Platelet Count 269 k/uL (150-450); RBC 4.85 m/uL (3.80-5.40); RDW 14.1 % (11.5-15.5); WBC 5.1 k/uL (3.8-10.6)
[2017-12-04 13:07] LABS: Creatine Kinase 48 U/L (30-135)
[2017-12-04 13:17] LABS: Creatine Kinase MB 0.3 ng/mL (0.0-2.4)
[2017-12-04 13:21] LABS: Troponin I <0.012 ng/mL (0.000-0.034)
[2017-12-04 14:50] VITALS: BP 135/68; RESP 16
== END 2017-12-04 14:54 | disposition home or self-care (01) ==
LOC: EC 11:40
DX: R42 Dizziness and giddiness (principal); Z88.0 Allergy status to penicillin; Z88.5 Allergy status to narcotic agent; Z88.8 Allergy status to other drugs, medicaments and biological substances; Z86.73 Personal history of transient ischemic attack (TIA), and cerebral infarction without residual deficits; Z95.5 Presence of coronary angioplasty implant and graft
CPT/HCPCS: 36415; 80053; 82550; 82553; 83735; 84484; 85025; 85610; 85730; 93005; 99284

== ENCOUNTER 2017-12-10 21:26 | Emergency (ER) | payer MEDICARE, BC ==
[2017-12-10] MEDS ORDERED: LABETALOL 5 MG/ML VIAL MDV IVP STA (21:57)
--- NOTE | 2017-12-10 22:01 | ED ---
General Adult HPI - General Chief complaint: Recheck/Abnormal Lab/Rx Stated complaint: stroke symptoms Source: patient Mode of arrival: wheelchair Limitations: physical limitation - History of Present Illness Initial comments: Dictation was produced using [id number] dictation software. please excuse any grammatical, word or spelling errors. Chief Complaint: 77-year-old female with recently diagnosed CVA presents with elevated blood pressure. History of Present Illness: Patient states that she was at home about to go to bed when she checked her blood pressure is really high. Patient is on lisinopril. She was just discharged from the hospital today. She was admitted for CVA. Patient was instructed by neurologist to seek medical attention if she had severely elevated blood pressure. Patient does not have any symptoms. The ROS documented in this emergency department record has been reviewed and confirmed by me. Those systems with pertinent positive or negative responses have been documented in the HPI. All other systems are other negative and/or noncontributory. - Related Data Home Medications Medication Instructions Recorded Confirmed Biotin 5 mg PO DAILY 12/01/17 12/10/17 Cholecalciferol (Vitamin D3) 2,000 unit PO DAILY 12/01/17 12/10/17 [Vitamin D3] Cinnamon Bark [Cinnamon] 500 mg PO DAILY 12/01/17 12/10/17 Cyanocobalamin (Vitamin B-12) 5,000 mcg PO MOFR 12/01/17 12/10/17 [Vitamin B12] Folic Acid(Unknown) 1 tab PO DAILY 12/01/17 12/10/17 Ubidecarenone [Co Q-10] 100 mg PO DAILY 12/04/17 12/10/17 Dipyridamole-Aspirin 200-25 mg 1 tab PO BID 12/10/17 12/10/17 [Aggrenox 25MG -200MG] Previous Rx's Medication Instructions Recorded Atorvastatin [Lipitor] 40 mg PO HS #30 tab 12/03/17 Lisinopril [Zestril] 10 mg PO DAILY #30 tab 12/03/17 Meclizine [Antivert] 25 mg PO TID #20 tab 12/04/17 amLODIPine [Norvasc] 2.5 mg PO DAILY #12 tablet 12/10/17 Allergies Allergy/AdvReac Type Severity Reaction Status Date / Time amoxicillin Allergy Rash/Hives Verified 12/10/17 22:04 codeine Allergy Rash/Hives/ Verified 12/10/17 22:04 Hallucinati ons morphine Allergy Rash/Hives/ Verified 12/10/17 22:04 Hallucinati ons Penicillins Allergy Rash/Hives Verified 12/10/17 22:04 hydromorphone [From Dilaudid] AdvReac Hallucinati Verified 12/10/17 22:04 ons ondansetron [From Zofran] AdvReac Nausea & Verified 12/10/17 22:04 Vomiting Review of Systems ROS Statement: Those systems with pertinent positive or pertinent negative responses have been documented in the HPI. ROS Other: All systems not noted in ROS Statement are negative. 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", ovarian cyst removal left side, colonoscopy/polypectomy-benign Past Anesthesia/Blood Transfusion Reactions: Motion Sickness, Postoperative Nausea & Vomiting (PONV) Past Psychological History: No Psychological Hx Reported Smoking Status: Never smoker Past Alcohol Use History: None Reported Past Drug Use History: None Reported - Past Family History Sister(s) Family Medical History: Cancer Additional Family Medical History / Comment(s): breast cancer Brother(s) Family Medical History: Cancer Additional Family Medical History / Comment(s): colon cancer General Exam - General Exam Comments Initial Comments: PHYSICAL EXAM: General Impression: Alert and oriented x3, not in acute distress HEENT: Normocephalic atraumatic, extra-ocular movements intact, pupils equal and reactive to light bilaterally, mucous membranes moist. Cardiovascular: Heart regular rate and rhythm, S1&S2 audible, no murmurs, rubs or gallops Chest: Lungs clear to auscultation bilaterally, no rhonchi, no wheeze, no rales Abdomen: Bowel sounds present, abdomen soft, non-tender, non-distended, no organomegaly Musculoskeletal: Pulses present and equal in all extremities, no peripheral edema Motor: Power 5/5 bilaterally, no focal deficits noted Neurological: CN II-XII grossly intact, no focal motor or sensory deficits noted Skin: Intact with no visualized rashes Psych: Normal affect and mood Limitations: physical limitation Course Vital Signs 12/10/17 12/10/17 21:29 22:27 Temperature 97.2 F L Pulse Rate 95 56 L Respiratory 17 18 Rate Blood Pressure 208/97 143/77 O2 Sat by Pulse 97 95 Oximetry Medical Decision Making - Medical Decision Making ED course: 77-year-old female presents with elevated blood pressure. Vital signs upon arrival shows blood pressure to 180/97, rest of vital signs within normal limits. Patient is asymptomatic. Physical examination is benign. Patient was observed in emergency department with improvement of blood pressure without any administration of any antihypertensive medications. At this point there is no reason for administration of administration of medications at this time. Patient underwent extensive workup yesterday and was discharged in stable condition. Patient appears well with stable vital signs. No neuro deficits noted. Patient given amlodipine prescription. Patient was involved with her primary care physician upon discharge for adjustment of antihypertensive medications. Disposition Clinical Impression: Hypertension Disposition: HOME SELF-CARE Condition: Good Prescriptions: amLODIPine [Norvasc] 2.5 mg PO DAILY #12 tablet Is patient prescribed a controlled substance at d/c from ED?: No Referrals: Chadd Patel MD [Primary Care Provider] - 1-2 days Time of Disposition: 22:48
[2017-12-10 23:06] VITALS: BP 148/78; PULSE 68; RESP 16; TEMP 98
== END 2017-12-10 23:06 | disposition home or self-care (01) ==
LOC: EC 21:26
DX: I10 Essential (primary) hypertension (principal); Z88.0 Allergy status to penicillin; Z88.5 Allergy status to narcotic agent; Z88.8 Allergy status to other drugs, medicaments and biological substances; Z79.02 Long term (current) use of antithrombotics/antiplatelets; Z79.82 Long term (current) use of aspirin; Z79.899 Other long term (current) drug therapy; Z86.73 Personal history of transient ischemic attack (TIA), and cerebral infarction without residual deficits; Z85.828 Personal history of other malignant neoplasm of skin; Z98.890 Other specified postprocedural states; Z95.9 Presence of cardiac and vascular implant and graft, unspecified
CPT/HCPCS: 99283

== ENCOUNTER 2018-01-03 11:35 | Emergency (ER) | payer MEDICARE, BC ==
[2018-01-03 11:44] VITALS: TEMP 98.2
--- NOTE | 2018-01-03 12:31 | ED ---
General Adult HPI - General Chief complaint: Neuro Symptoms/Deficit Stated complaint: visual disturbance Time Seen by Provider: 01/03/18 11:40 Source: patient, RN notes reviewed Mode of arrival: ambulatory Limitations: no limitations - History of Present Illness Initial comments: This is a 77-year-old female with a past medical history significant for CVA in the past. Patient woke up this morning saw some flickering light which she states occurred last STROKE. Patient states she called her son her son came over and thought she had some left-sided facial droop. The patient herself did not notice it. There is been no visual disturbances the patient denies any headache patient denies any numbness or weakness. Patient denies any speech disturbance. Patient denies any chest pain difficulty breathing or shortness of breath. Patient states aside from the flickering like she did not appreciate any strokelike symptoms however the son in the room does believe that she has the same amount of facial droop last time she had an acute stroke. - Related Data Home Medications Medication Instructions Recorded Confirmed Biotin 5 mg PO DAILY 12/01/17 01/03/18 Cholecalciferol (Vitamin D3) 2,000 unit PO DAILY 12/01/17 01/03/18 [Vitamin D3] Cinnamon Bark [Cinnamon] 500 mg PO DAILY 12/01/17 01/03/18 Cyanocobalamin (Vitamin B-12) 5,000 mcg PO MOFR 12/01/17 01/03/18 [Vitamin B12] Dipyridamole-Aspirin 200-25 mg 1 tab PO BID 12/10/17 01/03/18 [Aggrenox 25MG -200MG] Clopidogrel [Plavix] 75 mg PO DAILY 01/03/18 01/03/18 Folic Acid 0.4 mg PO DAILY 01/03/18 01/03/18 Lisinopril [Zestril] 10 mg PO BID 01/03/18 01/03/18 Previous Rx's Medication Instructions Recorded Atorvastatin [Lipitor] 40 mg PO HS #30 tab 12/03/17 Allergies Allergy/AdvReac Type Severity Reaction Status Date / Time amoxicillin Allergy Rash/Hives Verified 01/03/18 13:02 codeine Allergy Rash/Hives/ Verified 01/03/18 13:02 Hallucinati ons morphine Allergy Rash/Hives/ Verified 01/03/18 13:02 Hallucinati ons Penicillins Allergy Rash/Hives Verified 01/03/18 13:02 hydromorphone [From Dilaudid] AdvReac Hallucinati Verified 01/03/18 13:02 ons ondansetron [From Zofran] AdvReac Nausea & Verified 01/03/18 13:02 Vomiting Review of Systems ROS Statement: Those systems with pertinent positive or pertinent negative responses have been documented in the HPI. ROS Other: All systems not noted in ROS Statement are negative. 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", ovarian cyst removal left side, colonoscopy/polypectomy-benign Past Anesthesia/Blood Transfusion Reactions: Motion Sickness, Postoperative Nausea & Vomiting (PONV) Past Psychological History: No Psychological Hx Reported Smoking Status: Never smoker Past Alcohol Use History: None Reported Past Drug Use History: None Reported - Past Family History Sister(s) Family Medical History: Cancer Additional Family Medical History / Comment(s): breast cancer Brother(s) Family Medical History: Cancer Additional Family Medical History / Comment(s): colon cancer General Exam - General Exam Comments Initial Comments: GENERAL: Patient is well-developed and well-nourished. Patient is nontoxic and well- hydrated and is in no acute distress. ENT: Neck is soft and supple. No significant lymphadenopathy is noted. Oropharynx is clear. Moist mucous membranes. Neck has full range of motion without eliciting any pain. EYES: The sclera were anicteric and conjunctiva were pink and moist. Extraocular movements were intact and pupils were equal round and reactive to light. Eyelids were unremarkable. PULMONARY: Unlabored respirations. Good breath sounds bilaterally. No audible rales rhonchi or wheezing was noted. CARDIOVASCULAR: There is a regular rate and rhythm without any murmurs gallops or rubs. ABDOMEN: Soft and nontender with normal bowel sounds. No palpable organomegaly was noted. There is no palpable pulsatile mass. SKIN: Skin is clear with no lesions or rashes and otherwise unremarkable. NEUROLOGIC: Patient is alert and oriented x3. Cranial nerves II through XII are grossly intact. Son thinks are some facial droop on the left side I do not appreciate it but he knows her better than I do. Motor and sensory are also intact. Normal speech, volume and content. Symmetrical smile. MUSCULOSKELETAL: Normal extremities with adequate strength and full range of motion. No lower extremity swelling or edema. No calf tenderness. LYMPHATICS: No significant lymphadenopathy is noted PSYCHIATRIC: Normal psychiatric evaluation. Limitations: no limitations Course Vital Signs 01/03/18 01/03/18 01/03/18 11:41 12:44 13:50 Temperature 98.2 F Pulse Rate 90 77 76 Respiratory 18 20 18 Rate Blood Pressure 165/82 174/82 172/79 O2 Sat by Pulse 99 98 100 Oximetry Medical Decision Making - Medical Decision Making EKG shows normal sinus rhythm at 70 bpm. It was 148 QRSs 102 QT interval 394 QTC is 425. Patient's EKG shows no ST segment elevation or depression or T wave abnormalities are noted. CT of the brain shows no acute abnormality. Chest x-ray shows no acute abnormalities Dr. Warner came down and spoke with the patient and convince the patient that it was okay to go home so the patient will follow-up as an outpatient - Lab Data Result diagrams: 01/03/18 12:11 01/03/18 12:11 Lab Results 01/03/18 01/03/18 01/03/18 Range/Units 12:11 12:11 12:11 WBC 4.4 (3.8-10.6) k/uL RBC 4.75 (3.80-5.40) m/uL Hgb 13.9 (11.4-16.0) gm/dL Hct 43.3 (34.0-46.0) % MCV 91.3 (80.0-100.0) fL MCH 29.4 (25.0-35.0) pg MCHC 32.2 (31.0-37.0) g/dL RDW 13.8 (11.5-15.5) % Plt Count 211 (150-450) k/uL Neutrophils % 68 % Lymphocytes % 23 % Monocytes % 6 % Eosinophils % 0 % Basophils % 0 % Neutrophils # 3.0 (1.3-7.7) k/uL Lymphocytes # 1.0 (1.0-4.8) k/uL Monocytes # 0.3 (0-1.0) k/uL Eosinophils # 0.0 (0-0.7) k/uL Basophils # 0.0 (0-0.2) k/uL PT (9.0-12.0) sec INR (<1.2) APTT (22.0-30.0) sec Sodium 142 (137-145) mmol/L Potassium 4.5 (3.5-5.1) mmol/L Chloride 105 (98-107) mmol/L Carbon Dioxide 27 (22-30) mmol/L Anion Gap 10 mmol/L BUN 17 (7-17) mg/dL Creatinine 0.83 (0.52-1.04) mg/dL Est GFR (CKD-EPI)AfAm 80 (>60 ml/min/1.73 sqM) Est GFR (CKD-EPI)NonAf 70 (>60 ml/min/1.73 sqM) Glucose 95 (74-99) mg/dL POC Glucose (mg/dL) (75-99) mg/dL POC Glu Sheet Metal Supervisor ID Calcium 10.3 H (8.4-10.2) mg/dL Total Bilirubin 0.7 (0.2-1.3) mg/dL AST 35 (14-36) U/L ALT 33 (9-52) U/L Alkaline Phosphatase 68 (38-126) U/L Total Creatine Kinase 74 (30-135) U/L CK-MB (CK-2) 0.4 (0.0-2.4) ng/mL CK-MB (CK-2) Rel Index 0.5 Troponin I <0.012 (0.000-0.034) ng/mL Total Protein 8.5 H (6.3-8.2) g/dL Albumin 4.9 (3.5-5.0) g/dL 01/03/18 01/03/18 Range/Units 12:31 13:32 WBC (3.8-10.6) k/uL RBC (3.80-5.40) m/uL Hgb (11.4-16.0) gm/dL Hct (34.0-46.0) % MCV (80.0-100.0) fL MCH (25.0-35.0) pg MCHC (31.0-37.0) g/dL RDW (11.5-15.5) % Plt Count (150-450) k/uL Neutrophils % % Lymphocytes % % Monocytes % % Eosinophils % % Basophils % % Neutrophils # (1.3-7.7) k/uL Lymphocytes # (1.0-4.8) k/uL Monocytes # (0-1.0) k/uL Eosinophils # (0-0.7) k/uL Basophils # (0-0.2) k/uL PT 10.3 (9.0-12.0) sec INR 1.0 (<1.2) APTT 21.7 L (22.0-30.0) sec Sodium (137-145) mmol/L Potassium (3.5-5.1) mmol/L Chloride (98-107) mmol/L Carbon Dioxide (22-30) mmol/L Anion Gap mmol/L BUN (7-17) mg/dL Creatinine (0.52-1.04) mg/dL Est GFR (CKD-EPI)AfAm (>60 ml/min/1.73 sqM) Est GFR (CKD-EPI)NonAf (>60 ml/min/1.73 sqM) Glucose (74-99) mg/dL POC Glucose (mg/dL) 88 (75-99) mg/dL POC Glu Sheet Metal Supervisor Bhaskar Marquez Calcium (8.4-10.2) mg/dL Total Bilirubin (0.2-1.3) mg/dL AST (14-36) U/L ALT (9-52) U/L Alkaline Phosphatase (38-126) U/L Total Creatine Kinase (30-135) U/L CK-MB (CK-2) (0.0-2.4) ng/mL CK-MB (CK-2) Rel Index Troponin I (0.000-0.034) ng/mL Total Protein (6.3-8.2) g/dL Albumin (3.5-5.0) g/dL Disposition Clinical Impression: Transient cerebral ischemia Disposition: HOME SELF-CARE Condition: Good Instructions: Transient Ischemic Attack (ED) Is patient prescribed a controlled substance at d/c from ED?: No Referrals: Chadd Patel MD [Primary Care Provider] - 1-2 days Time of Disposition: 14:28
[2018-01-03 12:33] LABS: Glucose,Whole Blood 88 mg/dL (75-99)
[2018-01-03 12:45] LABS: Albumin 4.9 g/dL (3.5-5.0); Calcium 10.3 mg/dL (8.4-10.2); Total Bilirubin 0.7 mg/dL (0.2-1.3); Total Protein 8.5 g/dL (6.3-8.2)
[2018-01-03 12:50] LABS: Potassium 4.5 mmol/L (3.5-5.1)
[2018-01-03 12:55] LABS: Creatine Kinase 74 U/L (30-135)
--- NOTE | 2018-01-03 12:55 | XR ---
EXAMINATION TYPE: XR chest 2V DATE OF EXAM: 01/03/2018 COMPARISON: 12/09/2017 HISTORY: Shortness of breath TECHNIQUE: Frontal and lateral views of the chest are obtained. FINDINGS: Scattered senescent parenchymal changes noted. Hyperinflation compatible with COPD. No evidence for infiltrate. No evidence for atelectasis. Heart size is stable. Mediastinal structures are stable and grossly unremarkable. No evidence for hilar prominence. Degenerative changes dorsal spine. IMPRESSION: 1. No evidence for acute pulmonary disease.
[2018-01-03 12:57] LABS: Basophils % (A) 0 %; Eosinophils % (A) 0 %; HCT 43.3 % (34.0-46.0); HGB 13.9 gm/dL (11.4-16.0); Lymphocytes % (A) 23 %; MCH 29.4 pg (25.0-35.0); MCHC 32.2 g/dL (31.0-37.0); MCV 91.3 fL (80.0-100.0); Mean Platelet Volume 6.9; Monocytes # (A) 0.3 k/uL (0-1.0); Monocytes % (A) 6 %; Neutrophils % (A) 68 %; Platelet Count 211 k/uL (150-450); RBC 4.75 m/uL (3.80-5.40); RDW 13.8 % (11.5-15.5); WBC 4.4 k/uL (3.8-10.6)
[2018-01-03 13:09] LABS: Creatine Kinase MB 0.4 ng/mL (0.0-2.4); Troponin I <0.012 ng/mL (0.000-0.034)
--- NOTE | 2018-01-03 13:10 | CT ---
EXAMINATION TYPE: CT brain wo con DATE OF EXAM: 01/03/2018 COMPARISON: Prior CT brain 12/09/2017 HISTORY: Visual disturbance CT DLP: 981.7 mGycm Automated exposure control for dose reduction was used. Helical acquisition through the brain. FINDINGS: No significant interval change is evident. There is no hemorrhage or hydrocephalus. Brain density is stable. Calvarium is intact. Paranasal sinuses and mastoid air cells as visualized are normal. IMPRESSION: NO ACUTE ABNORMALITY, FOLLOW-UP WITH MRI INDICATED
[2018-01-03 14:15] LABS: Prothrombin Time 10.3 sec (9.0-12.0)
[2018-01-03 14:18] LABS: Partial Thromboplastin Time 21.7 sec (22.0-30.0)
[2018-01-03 15:05] VITALS: BP 150/81; PULSE 72; RESP 20
== END 2018-01-03 15:02 | disposition home or self-care (01) ==
LOC: EC 11:35
DX: G45.9 Transient cerebral ischemic attack, unspecified (principal); Z95.818 Presence of other cardiac implants and grafts; Z85.828 Personal history of other malignant neoplasm of skin; Z79.82 Long term (current) use of aspirin; Z79.02 Long term (current) use of antithrombotics/antiplatelets; Z79.899 Other long term (current) drug therapy; Z88.0 Allergy status to penicillin; Z88.5 Allergy status to narcotic agent; Z88.8 Allergy status to other drugs, medicaments and biological substances
CPT/HCPCS: 36415; 70450; 71046; 80053; 82550; 82553; 84484; 85025; 85610; 85730; 93005; 99285

== ENCOUNTER 2018-01-03 18:35 | Observation (INO) | payer MEDICARE, BC ==
[2018-01-03] MEDS ORDERED: LABETALOL 5 MG/ML VIAL MDV IVP STA (19:04)
[2018-01-03] MEDS ORDERED: SODIUM CHLORIDE 0.9% 1,000 ML IV STA (19:04)
[2018-01-03] MEDS ORDERED: SODIUM CHLORIDE 0.9% 500 ML IV STA (19:04)
--- NOTE | 2018-01-03 19:06 | ED ---
General Adult HPI - General Chief complaint: Recheck/Abnormal Lab/Rx Stated complaint: elevated BP Time Seen by Provider: 01/03/18 18:55 Source: patient, RN notes reviewed, old records reviewed Mode of arrival: wheelchair Limitations: no limitations - History of Present Illness Initial comments: This is a 77-year-old female to the ER for evaluation of elevated blood pressure mild headache. Patient has history of hypertension. Patient seen in ER earlier in the day for evaluation and possible CVA loss of vision might fluttering, all symptoms have resolved. She also mild facial droop per family. Patient was discharged home patient also has history of high blood pressure -: hour(s) Location: head (Mild headache) Radiation: non-radiation Severity scale (1-10): 1 Quality: aching Improves with: none Worsens with: none Associated Symptoms: headaches, other (Elevated blood pressure) Treatments Prior to Arrival: none - Related Data Home Medications Medication Instructions Recorded Confirmed Biotin 5 mg PO DAILY 12/01/17 01/03/18 Cholecalciferol (Vitamin D3) 2,000 unit PO DAILY 12/01/17 01/03/18 [Vitamin D3] Cinnamon Bark [Cinnamon] 500 mg PO DAILY 12/01/17 01/03/18 Cyanocobalamin (Vitamin B-12) 5,000 mcg PO MOFR 12/01/17 01/03/18 [Vitamin B12] Clopidogrel [Plavix] 75 mg PO DAILY 01/03/18 01/03/18 Folic Acid 0.4 mg PO DAILY 01/03/18 01/03/18 Lisinopril [Zestril] 10 mg PO BID 01/03/18 01/03/18 Previous Rx's Medication Instructions Recorded Atorvastatin [Lipitor] 40 mg PO HS #30 tab 12/03/17 Allergies Allergy/AdvReac Type Severity Reaction Status Date / Time amoxicillin Allergy Rash/Hives Verified 01/03/18 20:03 codeine Allergy Rash/Hives/ Verified 01/03/18 20:03 Hallucinati ons morphine Allergy Rash/Hives/ Verified 01/03/18 20:03 Hallucinati ons Penicillins Allergy Rash/Hives Verified 01/03/18 20:03 hydromorphone [From Dilaudid] AdvReac Hallucinati Verified 01/03/18 20:03 ons ondansetron [From Zofran] AdvReac Nausea & Verified 01/03/18 20:03 Vomiting Review of Systems ROS Statement: Those systems with pertinent positive or pertinent negative responses have been documented in the HPI. ROS Other: All systems not noted in ROS Statement are negative. 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", ovarian cyst removal left side, colonoscopy/polypectomy-benign Past Anesthesia/Blood Transfusion Reactions: Motion Sickness, Postoperative Nausea & Vomiting (PONV) Past Psychological History: No Psychological Hx Reported Smoking Status: Never smoker Past Alcohol Use History: None Reported Past Drug Use History: None Reported - Past Family History Sister(s) Family Medical History: Cancer Additional Family Medical History / Comment(s): breast cancer Brother(s) Family Medical History: Cancer Additional Family Medical History / Comment(s): colon cancer General Exam - General Exam Comments Initial Comments: NIH of 0 Limitations: no limitations General appearance: alert, in no apparent distress Head exam: Present: atraumatic, normocephalic, normal inspection Eye exam: Present: normal appearance, PERRL, EOMI. Absent: scleral icterus, conjunctival injection, periorbital swelling ENT exam: Present: normal exam, mucous membranes moist Neck exam: Present: normal inspection. Absent: tenderness, meningismus, lymphadenopathy Respiratory exam: Present: normal lung sounds bilaterally. Absent: respiratory distress, wheezes, rales, rhonchi, stridor Cardiovascular Exam: Present: regular rate, normal rhythm, normal heart sounds. Absent: systolic murmur, diastolic murmur, rubs, gallop, clicks GI/Abdominal exam: Present: soft, normal bowel sounds. Absent: distended, tenderness, guarding, rebound, rigid Extremities exam: Present: normal inspection, full ROM, normal capillary refill. Absent: tenderness, pedal edema, joint swelling, calf tenderness Back exam: Present: normal inspection Neurological exam: Present: alert, oriented X3, CN II-XII intact Psychiatric exam: Present: normal affect, normal mood Skin exam: Present: warm, dry, intact, normal color. Absent: rash Course Vital Signs 01/03/18 01/03/18 01/03/18 18:42 18:50 19:54 Temperature 98.2 F Pulse Rate 95 84 67 Respiratory 18 18 18 Rate Blood Pressure 195/96 196/92 160/78 O2 Sat by Pulse 99 98 97 Oximetry - Reevaluation(s) Reevaluation #1: 01/03/18 19:05 Medical record and ER visit from earlier in the day reviewed Reevaluation #2: 01/03/18 20:15 Patient's blood pressures improved here with IV medication Medical Decision Making - Medical Decision Making 77 female the ER with evaluation, patient with new onset hypertension secondary to CVA. Patient having difficulty with control blood pressures at home. The second ER visit in 1 day for elevated blood pressure and mild headache. Patient will be admitted for stricture blood pressure control and trying to transition patient oral medication Disposition Clinical Impression: Hypertension, Hypertensive urgency Disposition: ADMITTED IP TO THIS HOSP Condition: Fair Is patient prescribed a controlled substance at d/c from ED?: No Referrals: Chadd Patel MD [Primary Care Provider] - 1-2 days
[2018-01-03 20:52] LABS: Basophils % (A) 0 %; Eosinophils % (A) 0 %; HCT 41.7 % (34.0-46.0); HGB 13.4 gm/dL (11.4-16.0); Lymphocytes % (A) 24 %; MCH 29.5 pg (25.0-35.0); MCHC 32.2 g/dL (31.0-37.0); MCV 91.6 fL (80.0-100.0); Mean Platelet Volume 6.8; Monocytes # (A) 0.3 k/uL (0-1.0); Monocytes % (A) 8 %; Neutrophils # (A) 2.8 k/uL (1.3-7.7); Neutrophils % (A) 66 %; Platelet Count 237 k/uL (150-450); RBC 4.55 m/uL (3.80-5.40); RDW 13.9 % (11.5-15.5); WBC 4.3 k/uL (3.8-10.6)
[2018-01-03 20:56] LABS: Partial Thromboplastin Time 25.1 sec (22.0-30.0); Prothrombin Time 10.2 sec (9.0-12.0)
[2018-01-03 20:57] LABS: ALT 35 U/L (9-52); AST 32 U/L (14-36); Albumin 4.4 g/dL (3.5-5.0); Alkaline Phosphatase 72 U/L (38-126); Anion Gap 11 mmol/L; Blood Urea Nitrogen 14 mg/dL (7-17); Carbon Dioxide 25 mmol/L (22-30); Chloride 107 mmol/L (98-107); Glucose 86 mg/dL (74-99); Magnesium 2.3 mg/dL (1.6-2.3); Phosphorus 3.6 mg/dL (2.5-4.5); Sodium 143 mmol/L (137-145); Total Bilirubin 0.6 mg/dL (0.2-1.3); Total Protein 7.7 g/dL (6.3-8.2)
[2018-01-03 20:59] LABS: Creatine Kinase 61 U/L (30-135)
[2018-01-03 21:12] LABS: Creatine Kinase MB 0.6 ng/mL (0.0-2.4); Troponin I <0.012 ng/mL (0.000-0.034)
[2018-01-03] MEDS ORDERED: METOPROLOL TARTRATE 50 MG TAB PO SCH (22:00)
[2018-01-03] MEDS: HYDROCHLOROTHIAZIDE 25 MG TAB PO SCH (23:45)
[2018-01-04 07:58] VITALS: RESP 18
[2018-01-04] MEDS ORDERED: FOLIC ACID 1 MG TAB PO SCH (09:00)
[2018-01-04] MEDS ORDERED: LISINOPRIL 10 MG TAB PO SCH (09:00)
[2018-01-04] MEDS ORDERED: CLOPIDOGREL 75 MG TAB PO SCH (09:00)
[2018-01-04] MEDS ORDERED: CHOLECALCIFEROL 1,000 UNIT TAB PO SCH (09:00)
[2018-01-04] MEDS ORDERED: NON-FORMULARY DRUG (Biotin [Biotin] 5 MG) PO SCH (09:00)
[2018-01-04 11:38] VITALS: PULSE 64; TEMP 98.3
[2018-01-04] MEDS: HYDROCHLOROTHIAZIDE 25 MG TAB PO SCH (11:45)
[2018-01-04] MEDS ORDERED: HYDROCHLOROTHIAZIDE 25 MG TAB PO SCH (12:15)
[2018-01-04 13:49] VITALS: BP 132/69
--- NOTE | 2018-01-04 15:57 | P.HPIM ---
History of Present Illness H&P Date: 01/04/18 Chief Complaint: Hypertension HISTORY AND PHYSICAL AND DISCHARGE SUMMARY: This is a 77-year-old female patient of Dr. Patel with past medical history of hyperlipidemia, gallstones, borderline diabetes, CVA. Patient initially presented with vision changes and was concern for stroke and presented to the emergency center. She had a CAT scan of the brain that showed no acute abnormalities and chest x-ray showed no acute abnormalities. EKG was a sinus rhythm with no acute ST segment changes. His blood pressure was elevated and this was addressed and patient felt okay to be discharged home. Following the patient returned due to elevated blood pressure and headache and she did not have any facial drooping or weakness is new. No visual changes. Patient was then placed on the observation unit and she received lisinopril and to start HCTZ at 12.5mg at noon. Patient will be charged home today in stable condition. Discharge Medication List Biotin 5 mg PO DAILY 12/01/17 [History] Cholecalciferol (Vitamin D3) [Vitamin D3] 2,000 unit PO DAILY 12/01/17 [History] Cinnamon Bark [Cinnamon] 500 mg PO DAILY 12/01/17 [History] Cyanocobalamin (Vitamin B-12) [Vitamin B12] 5,000 mcg PO MOFR 12/01/17 [History] Atorvastatin [Lipitor] 40 mg PO HS #30 tab 12/03/17 [Rx] Clopidogrel [Plavix] 75 mg PO DAILY 01/03/18 [History] Folic Acid 0.4 mg PO DAILY 01/03/18 [History] Lisinopril [Zestril] 10 mg PO BID 01/03/18 [History] Hydrochlorothiazide [Hydrodiuril] 12.5 mg PO 1200 #30 tab 01/04/18 [Rx] Review of Systems All systems: negative Constitutional: Denies chills, Denies fever Eyes: denies blurred vision, denies pain Ears, nose, mouth and throat: Reports headache, Denies sore throat Cardiovascular: Denies chest pain, Denies shortness of breath Respiratory: Denies cough Gastrointestinal: Denies abdominal pain, Denies diarrhea, Denies nausea, Denies vomiting Genitourinary: Denies dysuria, Denies hematuria Musculoskeletal: Denies myalgias Integumentary: Denies pruritus, Denies rash Neurological: Denies numbness, Denies weakness Psychiatric: Denies anxiety, Denies depression Endocrine: Denies fatigue, Denies weight change 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(1965)", ovarian cyst removal left side, colonoscopy/polypectomy- benign, squamous cell skin ca removed(lip) Past Anesthesia/Blood Transfusion Reactions: Motion Sickness, Postoperative Nausea & Vomiting (PONV) Smoking Status: Never smoker - Past Family History Sister(s) Family Medical History: Cancer Additional Family Medical History / Comment(s): breast cancer Brother(s) Family Medical History: Cancer Additional Family Medical History / Comment(s): colon cancer Medications and Allergies Home Medications Medication Instructions Recorded Confirmed Type Biotin 5 mg PO DAILY 12/01/17 01/03/18 History Cholecalciferol (Vitamin D3) 2,000 unit PO DAILY 12/01/17 01/03/18 History [Vitamin D3] Cinnamon Bark [Cinnamon] 500 mg PO DAILY 12/01/17 01/03/18 History Cyanocobalamin (Vitamin B-12) 5,000 mcg PO MOFR 12/01/17 01/03/18 History [Vitamin B12] Atorvastatin [Lipitor] 40 mg PO HS #30 tab 12/03/17 01/03/18 Rx Clopidogrel [Plavix] 75 mg PO DAILY 01/03/18 01/03/18 History Folic Acid 0.4 mg PO DAILY 01/03/18 01/03/18 History Lisinopril [Zestril] 10 mg PO BID 01/03/18 01/03/18 History Hydrochlorothiazide [Hydrodiuril] 12.5 mg PO 1200 #30 tab 01/04/18 Rx Allergies Allergy/AdvReac Type Severity Reaction Status Date / Time amoxicillin Allergy Rash/Hives Verified 01/03/18 20:03 codeine Allergy Rash/Hives/ Verified 01/03/18 20:03 Hallucinati ons morphine Allergy Rash/Hives/ Verified 01/03/18 20:03 Hallucinati ons Penicillins Allergy Rash/Hives Verified 01/03/18 20:03 hydromorphone [From Dilaudid] AdvReac Hallucinati Verified 01/03/18 20:03 ons ondansetron [From Zofran] AdvReac Nausea & Verified 01/03/18 20:03 Vomiting Physical Exam Vitals: Vital Signs Temp Pulse Pulse Resp BP BP Pulse Ox 01/04/18 07:25 98.1 F 52 L 18 107/63 97 01/04/18 03:47 45 L 16 01/04/18 03:36 98.3 F 50 L 16 104/63 96 01/03/18 23:54 16 01/03/18 23:14 98.4 F 66 16 126/74 93 L 01/03/18 22:02 18 01/03/18 21:48 98.4 F 57 L 16 164/74 99 01/03/18 21:23 98.1 F 57 L 17 136/65 99 01/03/18 20:24 58 L 17 157/72 97 01/03/18 19:54 67 18 160/78 97 01/03/18 18:50 84 18 196/92 98 01/03/18 18:42 98.2 F 95 18 195/96 99 Intake and Output 01/03/18 01/04/18 01/04/18 22:59 06:59 14:59 Intake Total 200 120 Balance 200 120 Intake: Intake, IV Titration 200 Amount Sodium Chloride 0.9% 1, 200 000 ml @ 100 mls/hr IV . Q10H STA Rx#:[id number] Oral 120 Other: Voiding Method Toilet Toilet # Voids 1 1 Weight 58.967 kg General appearance: cooperative, no acute distress, obese - EENT Eyes: anicteric sclerae, PERRLA, normal appearance ENT: hearing grossly normal - Neck Neck: no lymphadenopathy, normal ROM, no other, no rigidity, no stridor, no thyromegaly - Respiratory Respiratory: bilateral: CTA, negative: diminished, dullness, rales, rhonchi - Cardiovascular Rhythm: regular Heart sounds: normal: S1, S2 Abnormal Heart Sounds: no systolic murmur, no diastolic murmur, no rub, no S3 Gallop, no S4 Gallop, no click, no other - Gastrointestinal General gastrointestinal: normal bowel sounds, soft - Integumentary Integumentary: no rash - Neurologic Neurologic: CNII-XII intact, numbness in the left upper extremity is improved, no sensory nor motor coordination defect. Gait is normal - Musculoskeletal Musculoskeletal: gait normal, strength equal bilaterally - Psychiatric Psychiatric: A&O x's 3, appropriate affect Results CBC & Chem 7: 01/03/18 19:54 01/03/18 19:54 Thrombosis Risk Factor Assmnt - Choose All That Apply Any of the Below Risk Factors Present?: Yes Other Risk Factors: Yes Each Risk Factor Represents 3 Points: Age 75 years or older Thrombosis Risk Factor Assessment Total Risk Factor Score: 3 Thrombosis Risk Factor Assessment Level: Moderate Risk Assessment and Plan Plan: 1. Uncontrolled hypertension. Continue lisinopril and hydrochlorothiazide. 2. Hyperlipidemia. 3. History of old lacunar stroke. Patient sent and observation unit. Discharge plan: home Impression and plan of care have been directed as dictated by the signing physician. Mona Bravo nurse practitioner acting as scribe for signing physician.
[2018-01-04] MEDS ORDERED: ATORVASTATIN 40 MG TAB PO SCH (21:00)
[2018-01-07] MEDS ORDERED: CYANOCOBALAMIN 500 MCG TAB PO SCH (12:00)
== END 2018-01-04 14:55 | disposition home or self-care (01) ==
LOC: EC 18:35 → 3OBS 20:13
PROVIDERS: ADMIT Internal Medicine; ATTEND Internal Medicine
DX: I10 Essential (primary) hypertension (principal); E78.5 Hyperlipidemia, unspecified; I16.0 Hypertensive urgency; R42 Dizziness and giddiness; K80.20 Calculus of gallbladder without cholecystitis without obstruction; R73.03 Prediabetes; E66.9 Obesity, unspecified; Z68.23 Body mass index [BMI] 23.0-23.9, adult; R29.810 Facial weakness; Z87.440 Personal history of urinary (tract) infections; Z86.73 Personal history of transient ischemic attack (TIA), and cerebral infarction without residual deficits; Z85.828 Personal history of other malignant neoplasm of skin; Z88.0 Allergy status to penicillin; Z88.5 Allergy status to narcotic agent; Z88.8 Allergy status to other drugs, medicaments and biological substances; Z79.899 Other long term (current) drug therapy; Z79.02 Long term (current) use of antithrombotics/antiplatelets; Z80.3 Family history of malignant neoplasm of breast; Z80.0 Family history of malignant neoplasm of digestive organs
CPT/HCPCS: 99285 ×2; 96374 ×2; 96361 ×3; 36415; 93005; 80053; 82550; 82553; 83735; 84100; 84484; 85025; 85610; 85730; G0378 ×2

== ENCOUNTER 2018-01-16 10:16 | Emergency (ER) | payer MEDICARE, BC ==
[2018-01-16 10:30] VITALS: BP 136/86; RESP 17; TEMP 98.1
[2018-01-16] MEDS ORDERED: SODIUM CHLORIDE 0.9% 500 ML 500 ML IV STA (10:38)
[2018-01-16] MEDS ORDERED: MECLIZINE 12.5 MG TAB PO STA (10:38)
--- NOTE | 2018-01-16 10:41 | ED ---
General Adult HPI - General Chief complaint: Dizziness Stated complaint: Near Syncope Time Seen by Provider: 01/16/18 10:31 Source: patient, EMS, RN notes reviewed, old records reviewed Mode of arrival: EMS Limitations: no limitations - History of Present Illness Initial comments: 77-year-old female history of hypertension and breast TIA and CVA presents with chief complaint of dizziness and lightheadedness. Patient states that this morning while getting ready she felt very lightheaded, felt like she was going to pass out. She does report some symptoms consistent with vertigo, stating that she felt like the room was moving in front of her. She did have a small amount of chest tightness associated with this. No radiating chest pain. No dyspnea. No abdominal pain. No nausea vomiting. No focal numbness or weakness. No headache. She is currently on aspirin Plavix, Lipitor, lisinopril , and hydrochlorothiazide. - Related Data Home Medications Medication Instructions Recorded Confirmed Biotin 5 mg PO DAILY 12/01/17 01/16/18 Cholecalciferol (Vitamin D3) 2,000 unit PO DAILY 12/01/17 01/16/18 [Vitamin D3] Cinnamon Bark [Cinnamon] 500 mg PO DAILY 12/01/17 01/16/18 Cyanocobalamin (Vitamin B-12) 5,000 mcg PO MOFR 12/01/17 01/16/18 [Vitamin B12] Clopidogrel [Plavix] 75 mg PO DAILY 01/03/18 01/16/18 Folic Acid 0.4 mg PO DAILY 01/03/18 01/16/18 Lisinopril [Zestril] 10 mg PO BID 01/03/18 01/16/18 Hydrochlorothiazide [Hydrodiuril] 12.5 mg PO AC-LUNCH 01/16/18 01/16/18 Previous Rx's Medication Instructions Recorded Atorvastatin [Lipitor] 40 mg PO HS #30 tab 12/03/17 Allergies Allergy/AdvReac Type Severity Reaction Status Date / Time amoxicillin Allergy Rash/Hives Verified 01/16/18 12:33 codeine Allergy Rash/Hives/ Verified 01/16/18 12:33 Hallucinati ons morphine Allergy Rash/Hives/ Verified 01/16/18 12:33 Hallucinati ons Penicillins Allergy Rash/Hives Verified 01/16/18 12:33 hydromorphone [From Dilaudid] AdvReac Hallucinati Verified 01/16/18 12:33 ons ondansetron [From Zofran] AdvReac Nausea & Verified 01/16/18 12:33 Vomiting Review of Systems ROS Statement: Those systems with pertinent positive or pertinent negative responses have been documented in the HPI. ROS Other: All systems not noted in ROS Statement are negative. 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(1965)", ovarian cyst removal left side, colonoscopy/polypectomy- benign, squamous cell skin ca removed(lip) Past Anesthesia/Blood Transfusion Reactions: Motion Sickness, Postoperative Nausea & Vomiting (PONV) Past Psychological History: No Psychological Hx Reported Smoking Status: Never smoker Past Alcohol Use History: None Reported Past Drug Use History: None Reported - Past Family History Sister(s) Family Medical History: Cancer Additional Family Medical History / Comment(s): breast cancer Brother(s) Family Medical History: Cancer Additional Family Medical History / Comment(s): colon cancer General Exam Limitations: no limitations General appearance: alert, in no apparent distress Head exam: Present: atraumatic, normocephalic Eye exam: Present: normal appearance, PERRL, EOMI. Absent: nystagmus ENT exam: Present: normal exam Neck exam: Present: normal inspection, full ROM. Absent: tenderness, meningismus Respiratory exam: Present: normal lung sounds bilaterally. Absent: respiratory distress, wheezes Cardiovascular Exam: Present: regular rate, normal rhythm GI/Abdominal exam: Present: soft. Absent: distended, tenderness Extremities exam: Present: normal inspection, normal capillary refill. Absent: pedal edema, calf tenderness Neurological exam: Present: alert, oriented X3, CN II-XII intact, other (No ataxia). Absent: motor sensory deficit Psychiatric exam: Present: normal affect, normal mood Skin exam: Present: warm, dry, intact. Absent: cyanosis, diaphoretic Course Vital Signs 01/16/18 10:28 Temperature 98.1 F Pulse Rate 90 Respiratory 17 Rate Blood Pressure 136/86 O2 Sat by Pulse 100 Oximetry EKG Findings - EKG Comments: EKG Findings:: EKG: Normal sinus rhythm, rate of 74, SD interval 166, QRS duration 96, QTC [address] segment elevation or depression Medical Decision Making - Medical Decision Making 77-year-old female presenting with lightheadedness and dizziness. Symptoms do seem to be consistent with vertigo. She's had recent CVA and TIA. Imaging from prior was reviewed, MRI shows right parietal infarct from [address] angiogram was negative at that time. Echo was normal. Patient's CBC, CMP, troponin are negative, urinalysis is unremarkable, chest x-ray in the emergency department today is clear, CT was repeated for concern hemorrhage, this is negative. Patient is given fluids and meclizine on reevaluation she feels 100% better. She is accompanied by her family who will stay with her over the next several days. She will return with worsening or changing symptoms. She will continue taking the meclizine she has at home. - Lab Data Result diagrams: 01/16/18 11:31 01/16/18 12:29 Lab Results 01/16/18 01/16/18 01/16/18 Range/Units 11:31 12:29 12:29 WBC 4.4 (3.8-10.6) k/uL RBC 4.52 (3.80-5.40) m/uL Hgb 13.7 (11.4-16.0) gm/dL Hct 41.3 (34.0-46.0) % MCV 91.3 (80.0-100.0) fL MCH 30.3 (25.0-35.0) pg MCHC 33.2 (31.0-37.0) g/dL RDW 13.7 (11.5-15.5) % Plt Count 247 (150-450) k/uL Neutrophils % 77 % Lymphocytes % 16 % Monocytes % 6 % Eosinophils % 0 % Basophils % 0 % Neutrophils # 3.4 (1.3-7.7) k/uL Lymphocytes # 0.7 L (1.0-4.8) k/uL Monocytes # 0.2 (0-1.0) k/uL Eosinophils # 0.0 (0-0.7) k/uL Basophils # 0.0 (0-0.2) k/uL Sodium 140 (137-145) mmol/L Potassium 4.7 (3.5-5.1) mmol/L Chloride 104 (98-107) mmol/L Carbon Dioxide 26 (22-30) mmol/L Anion Gap 10 mmol/L BUN 19 H (7-17) mg/dL Creatinine 0.84 (0.52-1.04) mg/dL Est GFR (CKD-EPI)AfAm 79 (>60 ml/min/1.73 sqM) Est GFR (CKD-EPI)NonAf 68 (>60 ml/min/1.73 sqM) Glucose 94 (74-99) mg/dL Calcium 9.6 (8.4-10.2) mg/dL Total Bilirubin 0.6 (0.2-1.3) mg/dL AST 38 H (14-36) U/L ALT 45 (9-52) U/L Alkaline Phosphatase 88 (38-126) U/L Troponin I <0.012 (0.000-0.034) ng/mL Total Protein 7.6 (6.3-8.2) g/dL Albumin 4.3 (3.5-5.0) g/dL Urine Color Urine Appearance (Clear) Urine pH (5.0-8.0) Ur Specific [place] (1.001-1.035) Urine Protein (Negative) Urine Glucose (UA) (Negative) Urine Ketones (Negative) Urine Blood (Negative) Urine Nitrite (Negative) Urine Bilirubin (Negative) Urine Urobilinogen (<2.0) mg/dL Ur Leukocyte Esterase (Negative) 01/16/18 Range/Units 13:23 WBC (3.8-10.6) k/uL RBC (3.80-5.40) m/uL Hgb (11.4-16.0) gm/dL Hct (34.0-46.0) % MCV (80.0-100.0) fL MCH (25.0-35.0) pg MCHC (31.0-37.0) g/dL RDW (11.5-15.5) % Plt Count (150-450) k/uL Neutrophils % % Lymphocytes % % Monocytes % % Eosinophils % % Basophils % % Neutrophils # (1.3-7.7) k/uL Lymphocytes # (1.0-4.8) k/uL Monocytes # (0-1.0) k/uL Eosinophils # (0-0.7) k/uL Basophils # (0-0.2) k/uL Sodium (137-145) mmol/L Potassium (3.5-5.1) mmol/L Chloride (98-107) mmol/L Carbon Dioxide (22-30) mmol/L Anion Gap mmol/L BUN (7-17) mg/dL Creatinine (0.52-1.04) mg/dL Est GFR (CKD-EPI)AfAm (>60 ml/min/1.73 sqM) Est GFR (CKD-EPI)NonAf (>60 ml/min/1.73 sqM) Glucose (74-99) mg/dL Calcium (8.4-10.2) mg/dL Total Bilirubin (0.2-1.3) mg/dL AST (14-36) U/L ALT (9-52) U/L Alkaline Phosphatase (38-126) U/L Troponin I (0.000-0.034) ng/mL Total Protein (6.3-8.2) g/dL Albumin (3.5-5.0) g/dL Urine Color Yellow Urine Appearance Clear (Clear) Urine pH 7.0 (5.0-8.0) Ur Specific [place] 1.007 (1.001-1.035) Urine Protein Negative (Negative) Urine Glucose (UA) Negative (Negative) Urine Ketones Negative (Negative) Urine Blood Negative (Negative) Urine Nitrite Negative (Negative) Urine Bilirubin Negative (Negative) Urine Urobilinogen <2.0 (<2.0) mg/dL Ur Leukocyte Esterase Negative (Negative) Disposition Clinical Impression: Vertigo Disposition: HOME SELF-CARE Condition: Good Instructions: Dizziness (ED) Is patient prescribed a controlled substance at d/c from ED?: No Referrals: Chadd Patel MD [Primary Care Provider] - 1-2 days Elgin Redman MD [STAFF PHYSICIAN] - 1-2 days Time of Disposition: 13:48
--- NOTE | 2018-01-16 11:27 | CT ---
EXAMINATION TYPE: CT brain wo con DATE OF EXAM: 01/16/2018 COMPARISON: Previous study dated 01/03/2018 HISTORY: Near Syncope CT DLP: 842.1 mGycm Automated exposure control for dose reduction was used. FINDINGS: Central structures are midline. There is no evidence of hydrocephalus. No acute focal lesion, mass ef fect or midline shift is seen. I do not see evidence of intracranial blood. Visualized portions of the paranasal sinuses and mastoids are clear. The bony calvarium is intact. IMPRESSION: NO ACUTE INTRACRANIAL ABNORMALITY.
[2018-01-16 12:09] LABS: Basophils % (A) 0 %; Eosinophils % (A) 0 %; HCT 41.3 % (34.0-46.0); HGB 13.7 gm/dL (11.4-16.0); Lymphocytes # (A) 0.7 k/uL (1.0-4.8); Lymphocytes % (A) 16 %; MCH 30.3 pg (25.0-35.0); MCHC 33.2 g/dL (31.0-37.0); MCV 91.3 fL (80.0-100.0); Mean Platelet Volume 6.8; Monocytes # (A) 0.2 k/uL (0-1.0); Monocytes % (A) 6 %; Neutrophils # (A) 3.4 k/uL (1.3-7.7); Neutrophils % (A) 77 %; Platelet Count 247 k/uL (150-450); RBC 4.52 m/uL (3.80-5.40); RDW 13.7 % (11.5-15.5); WBC 4.4 k/uL (3.8-10.6)
--- NOTE | 2018-01-16 12:17 | XR ---
EXAMINATION TYPE: XR chest 2V DATE OF EXAM: 01/16/2018 HISTORY: near syncope. REFERENCE: Previous study dated 01/03/2018. FINDINGS: There has been previous mediastinal surgery. The lungs are clear. Pleural space are clear. The heart is not enlarged. IMPRESSION: NO ACTIVE INTRATHORACIC DISEASE.
[2018-01-16 12:56] LABS: Albumin 4.3 g/dL (3.5-5.0); Calcium 9.6 mg/dL (8.4-10.2); Potassium 4.7 mmol/L (3.5-5.1); Total Bilirubin 0.6 mg/dL (0.2-1.3); Total Protein 7.6 g/dL (6.3-8.2)
[2018-01-16 13:39] LABS: Appearance,Urine Clear (Clear); Bilirubin,Urine Negative (Negative); Blood,Urine Negative (Negative); Color,Urine Yellow; Glucose,Urine (UA) Negative (Negative); Ketones,Urine Negative (Negative); Leukocyte Esterase,Urine Negative (Negative); Nitrite,Urine Negative (Negative); Protein,Urine Negative (Negative); Specific Gravity,Urine 1.007 (1.001-1.035); Urobilinogen,Urine <2.0 mg/dL (<2.0)
[2018-01-16 14:12] VITALS: PULSE 81
== END 2018-01-16 14:12 | disposition home or self-care (01) ==
LOC: EC 10:16
DX: R42 Dizziness and giddiness (principal); R07.89 Other chest pain; I10 Essential (primary) hypertension; Z86.73 Personal history of transient ischemic attack (TIA), and cerebral infarction without residual deficits; Z85.828 Personal history of other malignant neoplasm of skin; Z95.818 Presence of other cardiac implants and grafts; Z79.02 Long term (current) use of antithrombotics/antiplatelets; Z79.899 Other long term (current) drug therapy; Z88.0 Allergy status to penicillin; Z88.5 Allergy status to narcotic agent; Z88.8 Allergy status to other drugs, medicaments and biological substances
CPT/HCPCS: 36415; 70450; 71046; 80053; 81003; 84484; 85025; 93005; 96360; 99285

== ENCOUNTER 2018-04-19 11:13 | Emergency (ER) | payer MEDICARE, BC ==
[2018-04-19 11:18] VITALS: RESP 18; TEMP 98
[2018-04-19] MEDS ORDERED: SODIUM CHLORIDE 0.9% 500 ML 500 ML IV STA (11:33)
--- NOTE | 2018-04-19 11:51 | ED ---
General Adult HPI - General Chief complaint: Recheck/Abnormal Lab/Rx Stated complaint: vision problem, elevated BP Time Seen by Provider: 04/19/18 11:15 Source: patient, RN notes reviewed Mode of arrival: wheelchair Limitations: no limitations - History of Present Illness Initial comments: This is a 78-year-old female who presents emergency department stating that last evening she had a small shadow in her left eye which lasted about an hour that went away. Patient states she woke up this morning and it was a crescent- shaped area that looks like a shadow in the left eye. Patient states that went away after about an hour. Patient states since that her blood pressures been high and she took a next blood pressure pill but it stayed elevated. Patient states after that she noticed some facial droop on the left side. Patient states very subtle but it is there. Family is in agreement with this. Patient states the last time her face looked normal to her was yesterday. Patient also states she has a very weird sensation to her cheek on the left which is the same sensation she had before which had a stroke. Patient vision currently is normal. Patient denies any numbness or weakness per patient denies any headache. Patient denies any correlation breath. Patient denies any problem ambulating. Patient denies any chest pain difficulty breathing shortest breath per patient denies any recent fever chills or cough per patient denies abdominal pain. Patient denies nausea vomiting diarrhea. Patient denies any syncopal or near syncopal episodes. - Related Data Home Medications Medication Instructions Recorded Confirmed Biotin 5 mg PO DAILY 12/01/17 04/19/18 Cholecalciferol (Vitamin D3) 2,000 unit PO DAILY 12/01/17 04/19/18 [Vitamin D3] Cinnamon Bark [Cinnamon] 500 mg PO DAILY 12/01/17 04/19/18 Cyanocobalamin (Vitamin B-12) 5,000 mcg PO MOFR 12/01/17 04/19/18 [Vitamin B12] Clopidogrel [Plavix] 75 mg PO DAILY 01/03/18 04/19/18 Folic Acid 0.4 mg PO DAILY 01/03/18 04/19/18 Lisinopril [Zestril] 10 mg PO BID 01/03/18 04/19/18 Hydrochlorothiazide [Hydrodiuril] 12.5 mg PO AC-LUNCH 01/16/18 04/19/18 Previous Rx's Medication Instructions Recorded Atorvastatin [Lipitor] 40 mg PO HS #30 tab 12/03/17 Allergies Allergy/AdvReac Type Severity Reaction Status Date / Time amoxicillin Allergy Rash/Hives Verified 04/19/18 11:53 codeine Allergy Rash/Hives/ Verified 04/19/18 11:53 Hallucinati ons morphine Allergy Rash/Hives/ Verified 04/19/18 11:53 Hallucinati ons Penicillins Allergy Rash/Hives Verified 04/19/18 11:53 hydromorphone [From Dilaudid] AdvReac Hallucinati Verified 04/19/18 11:53 ons ondansetron [From Zofran] AdvReac Nausea & Verified 04/19/18 11:53 Vomiting Review of Systems ROS Statement: Those systems with pertinent positive or pertinent negative responses have been documented in the HPI. ROS Other: All systems not noted in ROS Statement are negative. 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)", ovarian cyst removal left side, colonoscopy/polypectomy- benign, squamous cell skin ca removed(lip) Past Anesthesia/Blood Transfusion Reactions: Motion Sickness, Postoperative Nausea & Vomiting (PONV) Past Psychological History: No Psychological Hx Reported Smoking Status: Never smoker Past Alcohol Use History: None Reported Past Drug Use History: None Reported - Past Family History Sister(s) Family Medical History: Cancer Additional Family Medical History / Comment(s): breast cancer Brother(s) Family Medical History: Cancer Additional Family Medical History / Comment(s): colon cancer General Exam - General Exam Comments Initial Comments: GENERAL: Patient is well-developed and well-nourished. Patient is nontoxic and well- hydrated and is in mild distress. ENT: Neck is soft and supple. No significant lymphadenopathy is noted. Oropharynx is clear. Moist mucous membranes. Neck has full range of motion without eliciting any pain. EYES: The sclera were anicteric and conjunctiva were pink and moist. Extraocular movements were intact and pupils were equal round and reactive to light. Eyelids were unremarkable. PULMONARY: Unlabored respirations. Good breath sounds bilaterally. No audible rales rhonchi or wheezing was noted. CARDIOVASCULAR: There is a regular rate and rhythm without any murmurs gallops or rubs. ABDOMEN: Soft and nontender with normal bowel sounds. No palpable organomegaly was noted. There is no palpable pulsatile mass. SKIN: Skin is clear with no lesions or rashes and otherwise unremarkable. NEUROLOGIC: Patient is alert and oriented x3. Patient has some slight facial droop on the left at the lip. Motor and sensory are also intact. Normal speech, volume and content. Symmetrical smile. MUSCULOSKELETAL: Normal extremities with adequate strength and full range of motion. No lower extremity swelling or edema. No calf tenderness. LYMPHATICS: No significant lymphadenopathy is noted PSYCHIATRIC: Normal psychiatric evaluation. Limitations: no limitations Course Vital Signs 04/19/18 04/19/18 04/19/18 11:15 12:01 12:28 Temperature 98 F Pulse Rate 105 H 92 Respiratory 18 18 Rate Blood Pressure 200/107 164/106 135/79 O2 Sat by Pulse 100 Oximetry 04/19/18 04/19/18 04/19/18 13:02 13:30 14:00 Temperature Pulse Rate 61 78 75 Respiratory 18 18 18 Rate Blood Pressure 149/80 134/85 144/75 O2 Sat by Pulse 100 98 98 Oximetry 04/19/18 04/19/18 14:30 15:00 Temperature Pulse Rate 77 80 Respiratory 18 18 Rate Blood Pressure 156/81 145/84 O2 Sat by Pulse 100 97 Oximetry Medical Decision Making - Medical Decision Making She has an NIH of 1 CT shows no acute abnormality I spoke with Dr. Light she did not want to admit the patient here and asked if I could send the patient to [facility]. I spoke with the emergency room physician at [facility] he accepted the transfer. - Lab Data Result diagrams: 04/19/18 11:45 04/19/18 11:45 Lab Results 04/19/18 04/19/18 04/19/18 Range/Units 11:45 11:45 11:45 WBC 4.4 (3.8-10.6) k/uL RBC 4.67 (3.80-5.40) m/uL Hgb 13.8 (11.4-16.0) gm/dL Hct 43.7 (34.0-46.0) % MCV 93.6 (80.0-100.0) fL MCH 29.6 (25.0-35.0) pg MCHC 31.7 (31.0-37.0) g/dL RDW 13.3 (11.5-15.5) % Plt Count 270 (150-450) k/uL Neutrophils % 63 % Lymphocytes % 28 % Monocytes % 6 % Eosinophils % 1 % Basophils % 0 % Neutrophils # 2.8 (1.3-7.7) k/uL Lymphocytes # 1.2 (1.0-4.8) k/uL Monocytes # 0.3 (0-1.0) k/uL Eosinophils # 0.0 (0-0.7) k/uL Basophils # 0.0 (0-0.2) k/uL PT (9.0-12.0) sec INR (<1.2) APTT (22.0-30.0) sec Sodium 143 (137-145) mmol/L Potassium 4.1 (3.5-5.1) mmol/L Chloride 107 (98-107) mmol/L Carbon Dioxide 25 (22-30) mmol/L Anion Gap 11 mmol/L BUN 18 H (7-17) mg/dL Creatinine 0.78 (0.52-1.04) mg/dL Est GFR (CKD-EPI)AfAm 86 (>60 ml/min/1.73 sqM) Est GFR (CKD-EPI)NonAf 74 (>60 ml/min/1.73 sqM) Glucose 82 (74-99) mg/dL Calcium 10.2 (8.4-10.2) mg/dL Total Bilirubin 0.8 (0.2-1.3) mg/dL AST 34 (14-36) U/L ALT 42 (9-52) U/L Alkaline Phosphatase 94 (38-126) U/L Total Creatine Kinase 95 (30-135) U/L CK-MB (CK-2) 0.7 (0.0-2.4) ng/mL CK-MB (CK-2) Rel Index 0.7 Troponin I <0.012 (0.000-0.034) ng/mL Total Protein 8.2 (6.3-8.2) g/dL Albumin 5.0 (3.5-5.0) g/dL 04/19/18 Range/Units 11:45 WBC (3.8-10.6) k/uL RBC (3.80-5.40) m/uL Hgb (11.4-16.0) gm/dL Hct (34.0-46.0) % MCV (80.0-100.0) fL MCH (25.0-35.0) pg MCHC (31.0-37.0) g/dL RDW (11.5-15.5) % Plt Count (150-450) k/uL Neutrophils % % Lymphocytes % % Monocytes % % Eosinophils % % Basophils % % Neutrophils # (1.3-7.7) k/uL Lymphocytes # (1.0-4.8) k/uL Monocytes # (0-1.0) k/uL Eosinophils # (0-0.7) k/uL Basophils # (0-0.2) k/uL PT 10.1 (9.0-12.0) sec INR 0.9 (<1.2) APTT 24.8 (22.0-30.0) sec Sodium (137-145) mmol/L Potassium (3.5-5.1) mmol/L Chloride (98-107) mmol/L Carbon Dioxide (22-30) mmol/L Anion Gap mmol/L BUN (7-17) mg/dL Creatinine (0.52-1.04) mg/dL Est GFR (CKD-EPI)AfAm (>60 ml/min/1.73 sqM) Est GFR (CKD-EPI)NonAf (>60 ml/min/1.73 sqM) Glucose (74-99) mg/dL Calcium (8.4-10.2) mg/dL Total Bilirubin (0.2-1.3) mg/dL AST (14-36) U/L ALT (9-52) U/L Alkaline Phosphatase (38-126) U/L Total Creatine Kinase (30-135) U/L CK-MB (CK-2) (0.0-2.4) ng/mL CK-MB (CK-2) Rel Index Troponin I (0.000-0.034) ng/mL Total Protein (6.3-8.2) g/dL Albumin (3.5-5.0) g/dL Disposition Clinical Impression: Cerebrovascular accident Disposition: OTHER INSTITUTION NOT DEFINED Referrals: Chadd Patel MD [Primary Care Provider] - 1-2 days Time of Disposition: 14:46 - Out of Hospital Transfer - Req. Specs Out of Hospital Transfer - Requested Specifics: Other Emergency Center ([facility]
[2018-04-19 12:06] LABS: Basophils % (A) 0 %; Eosinophils % (A) 1 %; HCT 43.7 % (34.0-46.0); HGB 13.8 gm/dL (11.4-16.0); Lymphocytes # (A) 1.2 k/uL (1.0-4.8); Lymphocytes % (A) 28 %; MCH 29.6 pg (25.0-35.0); MCHC 31.7 g/dL (31.0-37.0); MCV 93.6 fL (80.0-100.0); Mean Platelet Volume 6.3; Monocytes # (A) 0.3 k/uL (0-1.0); Monocytes % (A) 6 %; Neutrophils # (A) 2.8 k/uL (1.3-7.7); Neutrophils % (A) 63 %; Platelet Count 270 k/uL (150-450); RBC 4.67 m/uL (3.80-5.40); RDW 13.3 % (11.5-15.5); WBC 4.4 k/uL (3.8-10.6)
[2018-04-19 12:11] LABS: INR 0.9 (<1.2); Partial Thromboplastin Time 24.8 sec (22.0-30.0); Prothrombin Time 10.1 sec (9.0-12.0)
[2018-04-19 12:15] LABS: Calcium 10.2 mg/dL (8.4-10.2); Potassium 4.1 mmol/L (3.5-5.1); Total Bilirubin 0.8 mg/dL (0.2-1.3); Total Protein 8.2 g/dL (6.3-8.2)
[2018-04-19 12:22] LABS: Creatine Kinase 95 U/L (30-135)
--- NOTE | 2018-04-19 12:24 | CT ---
EXAMINATION TYPE: CT brain wo con DATE OF EXAM: 04/19/2018 COMPARISON: 01/16/2018 HISTORY: high blood pressure, history of stroke. CT DLP: 997.1 mGycm Automated exposure control for dose reduction was used. TECHNIQUE: CT scan of the head is performed without contrast. FINDINGS: There is no acute intracranial hemorrhage or midline shift identified. There is diffuse ventricular a nd sulcal prominence consistent with diffuse age-related cerebral atrophy. [place] artifact from the d ense calvarium limits the left middle cranial fossa creating slight hyperdensity. The globes are inta ct and the visualized sinuses are clear. IMPRESSION: NO ACUTE INTRACRANIAL PROCESS, NO SIGNIFICANT CHANGE IN COMPARISON TO THE PRIOR OF 01/16/2018.
--- NOTE | 2018-04-19 12:34 | XR ---
EXAMINATION TYPE: XR chest 2V DATE OF EXAM: 04/19/2018 COMPARISON: 01/16/2018 HISTORY: Visual disturbances. Hypertension. Facial droop. Altered mental status. Stated history of be nign lymph node removal of the mediastinum. TECHNIQUE: Frontal and lateral views of the chest are obtained. FINDINGS: There is chronic right hemithorax volume loss with elevation of the right minor fissure an d right upper mediastinal surgical clips. Left lung remains well aerated. Cardiomediastinal silhouett e is similar to the prior and nonenlarged. Osseous structures are intact. IMPRESSION: Chronic findings with no acute cardiopulmonary process.
[2018-04-19 12:35] LABS: Creatine Kinase MB 0.7 ng/mL (0.0-2.4); Troponin I <0.012 ng/mL (0.000-0.034)
[2018-04-19 15:15] VITALS: BP 145/84; PULSE 80
== END 2018-04-19 15:23 | disposition other institution (70) ==
LOC: EC 11:13
DX: I63.9 Cerebral infarction, unspecified (principal); R29.701 NIHSS score 1; Z85.828 Personal history of other malignant neoplasm of skin; Z90.49 Acquired absence of other specified parts of digestive tract; Z90.710 Acquired absence of both cervix and uterus; Z95.818 Presence of other cardiac implants and grafts; Z79.02 Long term (current) use of antithrombotics/antiplatelets; Z79.899 Other long term (current) drug therapy; Z88.0 Allergy status to penicillin; Z88.5 Allergy status to narcotic agent; Z88.8 Allergy status to other drugs, medicaments and biological substances
CPT/HCPCS: 36415; 70450; 71046; 80053; 82550; 82553; 84484; 85025; 85610; 85730; 93005; 99285

== ENCOUNTER 2019-05-16 18:52 | Observation (INO) | payer MEDICARE, BC ==
[2019-05-16 20:05] LABS: Basophils # (A) 0.1 k/uL (0-0.2); Basophils % (A) 1 %; Eosinophils # (A) 0.1 k/uL (0-0.7); Eosinophils % (A) 1 %; HCT 42.8 % (34.0-46.0); HGB 13.6 gm/dL (11.4-16.0); Lymphocytes # (A) 0.9 k/uL (1.0-4.8); Lymphocytes % (A) 18 %; MCH 29.4 pg (25.0-35.0); MCHC 31.8 g/dL (31.0-37.0); MCV 92.5 fL (80.0-100.0); Mean Platelet Volume 7.3; Monocytes # (A) 0.3 k/uL (0-1.0); Monocytes % (A) 6 %; Neutrophils # (A) 3.9 k/uL (1.3-7.7); Neutrophils % (A) 73 %; Platelet Count 247 k/uL (150-450); RBC 4.63 m/uL (3.80-5.40); RDW 13.2 % (11.5-15.5); WBC 5.3 k/uL (3.8-10.6)
[2019-05-16 20:15] LABS: INR 0.9 (<1.2); Partial Thromboplastin Time 23.9 sec (22.0-30.0); Prothrombin Time 9.8 sec (9.0-12.0)
[2019-05-16 20:18] LABS: Albumin 4.8 g/dL (3.5-5.0); Calcium 9.9 mg/dL (8.4-10.2); Potassium 4.1 mmol/L (3.5-5.1); Total Bilirubin 0.7 mg/dL (0.2-1.3); Total Protein 7.9 g/dL (6.3-8.2)
--- NOTE | 2019-05-16 20:18 | ED ---
Recheck HPI - General Chief Complaint: Recheck/Abnormal Lab/Rx Stated Complaint: high blood pressure Time Seen by Provider: 05/16/19 19:41 Source: patient, RN notes reviewed Mode of arrival: ambulatory Limitations: no limitations - History of Present Illness Initial Comments: This is a 79-year-old female who presents with complaints of a left-sided head ache and elevated blood pressure. He states that about 2 weeks ago she had some difficulty with the left side of her face she had just a little bit of residual droop according to her family. She is noted have a blood pressure she states at home without 212/107 upon reaching the ER she states was 200/100 states he left- sided pain is not really a headache and is unable to describe it any further she also states she had some brief episode of floaters in her right eye which is now resolved. She has no other complaints at this time no focal deficits no fevers chills nausea vomiting sweats she states she has taken her medication is been no change in medication regimen ordered timing of the dosages. - Related Data Home Medications Medication Instructions Recorded Confirmed Cholecalciferol (Vitamin D3) 2,000 unit PO DAILY 12/01/17 05/16/19 [Vitamin D3] Cinnamon Bark [Cinnamon] 500 mg PO DAILY 12/01/17 05/16/19 Clopidogrel [Plavix] 75 mg PO DAILY 01/03/18 05/16/19 Folic Acid 0.4 mg PO DAILY 01/03/18 05/16/19 Cyanocobalamin (Vitamin B-12) 2,500 mcg PO DAILY 05/16/19 05/16/19 [Vitamin B-12] Lisinopril 20 mg PO BID 05/16/19 05/16/19 Previous Rx's Medication Instructions Recorded Atorvastatin [Lipitor] 40 mg PO HS #30 tab 12/03/17 Allergies Allergy/AdvReac Type Severity Reaction Status Date / Time amoxicillin Allergy Rash/Hives Verified 05/16/19 22:03 codeine Allergy Rash/Hives/ Verified 05/16/19 22:03 Hallucinati ons morphine Allergy Rash/Hives/ Verified 05/16/19 22:03 Hallucinati ons Penicillins Allergy Rash/Hives Verified 05/16/19 22:03 hydromorphone [From Dilaudid] AdvReac Hallucinati Verified 05/16/19 22:03 ons ondansetron [From Zofran] AdvReac Nausea & Verified 05/16/19 22:03 Vomiting Review of Systems ROS Statement: Those systems with pertinent positive or pertinent negative responses have been documented in the HPI. ROS Other: All systems not noted in ROS Statement are negative. 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(1965)", ovarian cyst removal left side, colonoscopy/polypectomy- benign, squamous cell skin ca removed(lip) Past Anesthesia/Blood Transfusion Reactions: Motion Sickness, Postoperative Nausea & Vomiting (PONV) Past Psychological History: No Psychological Hx Reported Smoking Status: Never smoker Past Alcohol Use History: None Reported Past Drug Use History: None Reported - Past Family History Sister(s) Family Medical History: Cancer Additional Family Medical History / Comment(s): breast cancer Brother(s) Family Medical History: Cancer Additional Family Medical History / Comment(s): colon cancer General Exam - General Exam Comments Initial Comments: Is a well-developed well-nourished awake alert oriented 3 female Limitations: no limitations General appearance: alert, in no apparent distress Head exam: Present: atraumatic, normocephalic, normal inspection Eye exam: Present: normal appearance, PERRL, EOMI. Absent: scleral icterus, conjunctival injection, periorbital swelling ENT exam: Present: mucous membranes dry Neck exam: Present: normal inspection. Absent: tenderness, meningismus, lymphadenopathy Respiratory exam: Present: normal lung sounds bilaterally. Absent: respiratory distress, wheezes, rales, rhonchi, stridor Cardiovascular Exam: Present: regular rate, normal rhythm, normal heart sounds. Absent: systolic murmur, diastolic murmur, rubs, gallop, clicks GI/Abdominal exam: Present: soft, normal bowel sounds. Absent: distended, tenderness, guarding, rebound, rigid Extremities exam: Present: normal inspection, full ROM, normal capillary refill. Absent: tenderness, pedal edema, joint swelling, calf tenderness Back exam: Present: normal inspection Neurological exam: Present: alert, oriented X3, CN II-XII intact Psychiatric exam: Present: normal affect, normal mood Skin exam: Present: warm, dry, intact, normal color. Absent: rash Course Vital Signs 05/16/19 05/16/19 18:55 21:46 Temperature 97.7 F Pulse Rate 108 H 85 Respiratory 20 18 Rate Blood Pressure 220/100 162/95 O2 Sat by Pulse 96 Oximetry - Reevaluation(s) Reevaluation #1: 05/16/19 20:17 Repeat blood pressure 159 systolic Medical Decision Making - Medical Decision Making I did reevaluate patient several occasions she had no further issues her blood pressure did normalize however due to the findings of the suspected CVA recently in the lability of her blood pressure she'll be admitted for evaluation by neurology - Lab Data Result diagrams: 05/16/19 19:56 05/16/19 19:56 Lab Results 05/16/19 05/16/19 05/16/19 Range/Units 19:56 19:56 19:56 WBC 5.3 (3.8-10.6) k/uL RBC 4.63 (3.80-5.40) m/uL Hgb 13.6 (11.4-16.0) gm/dL Hct 42.8 (34.0-46.0) % MCV 92.5 (80.0-100.0) fL MCH 29.4 (25.0-35.0) pg MCHC 31.8 (31.0-37.0) g/dL RDW 13.2 (11.5-15.5) % Plt Count 247 (150-450) k/uL Neutrophils % 73 % Lymphocytes % 18 % Monocytes % 6 % Eosinophils % 1 % Basophils % 1 % Neutrophils # 3.9 (1.3-7.7) k/uL Lymphocytes # 0.9 L (1.0-4.8) k/uL Monocytes # 0.3 (0-1.0) k/uL Eosinophils # 0.1 (0-0.7) k/uL Basophils # 0.1 (0-0.2) k/uL PT 9.8 (9.0-12.0) sec INR 0.9 (<1.2) APTT 23.9 (22.0-30.0) sec Sodium 139 (137-145) mmol/L Potassium 4.1 (3.5-5.1) mmol/L Chloride 103 (98-107) mmol/L Carbon Dioxide 25 (22-30) mmol/L Anion Gap 11 mmol/L BUN 17 (7-17) mg/dL Creatinine 0.87 (0.52-1.04) mg/dL Est GFR (CKD-EPI)AfAm 75 (>60 ml/min/1.73 sqM) Est GFR (CKD-EPI)NonAf 65 (>60 ml/min/1.73 sqM) Glucose 96 (74-99) mg/dL Calcium 9.9 (8.4-10.2) mg/dL Magnesium (1.6-2.3) mg/dL Total Bilirubin 0.7 (0.2-1.3) mg/dL AST 37 H (14-36) U/L ALT 29 (4-34) U/L Alkaline Phosphatase 91 (38-126) U/L Creatine Kinase (30-135) U/L Troponin I (0.000-0.034) ng/mL Total Protein 7.9 (6.3-8.2) g/dL Albumin 4.8 (3.5-5.0) g/dL 05/16/19 05/16/19 Range/Units 19:56 19:56 WBC (3.8-10.6) k/uL RBC (3.80-5.40) m/uL Hgb (11.4-16.0) gm/dL Hct (34.0-46.0) % MCV (80.0-100.0) fL MCH (25.0-35.0) pg MCHC (31.0-37.0) g/dL RDW (11.5-15.5) % Plt Count (150-450) k/uL Neutrophils % % Lymphocytes % % Monocytes % % Eosinophils % % Basophils % % Neutrophils # (1.3-7.7) k/uL Lymphocytes # (1.0-4.8) k/uL Monocytes # (0-1.0) k/uL Eosinophils # (0-0.7) k/uL Basophils # (0-0.2) k/uL PT (9.0-12.0) sec INR (<1.2) APTT (22.0-30.0) sec Sodium (137-145) mmol/L Potassium (3.5-5.1) mmol/L Chloride (98-107) mmol/L Carbon Dioxide (22-30) mmol/L Anion Gap mmol/L BUN (7-17) mg/dL Creatinine (0.52-1.04) mg/dL Est GFR (CKD-EPI)AfAm (>60 ml/min/1.73 sqM) Est GFR (CKD-EPI)NonAf (>60 ml/min/1.73 sqM) Glucose (74-99) mg/dL Calcium (8.4-10.2) mg/dL Magnesium 2.1 (1.6-2.3) mg/dL Total Bilirubin (0.2-1.3) mg/dL AST (14-36) U/L ALT (4-34) U/L Alkaline Phosphatase (38-126) U/L Creatine Kinase 121 (30-135) U/L Troponin I <0.012 (0.000-0.034) ng/mL Total Protein (6.3-8.2) g/dL Albumin (3.5-5.0) g/dL - EKG Data -: EKG Interpreted by [facility] EKG shows normal: sinus rhythm (Sinus rhythm with occasional PVCs rate was 89. Interval 156 QRS duration 80 QT since QTC 368/447) - Radiology Data Radiology results: report reviewed (I did review the imaging and report no acute findings.), image reviewed Disposition Clinical Impression: Labile hypertension, CVA (cerebral vascular accident) Disposition: ADMITTED IP TO THIS [facility] Condition: Fair Referrals: Perez Cool MD [Primary Care Provider] - 1-2 days
[2019-05-16 20:35] LABS: Magnesium 2.1 mg/dL (1.6-2.3)
--- NOTE | 2019-05-16 20:44 | XR ---
EXAMINATION TYPE: XR chest 2V DATE OF EXAM: 05/16/2019 COMPARISON: 04/19/2018 HISTORY: Altered mental status TECHNIQUE: FINDINGS: Heart is normal. There is slight blunting right costophrenic angle. There are surgical clip s in the right upper lobe. Left lung is clear. There is linear density right upper lobe. There are no hilar masses. Bony thorax is intact. IMPRESSION: Postsurgical changes in the right lung. No acute lung disease. Right upper lobe scarring. Right basilar pleural diaphragmatic scarring. No change compared to old exam.
--- NOTE | 2019-05-16 21:37 | CT ---
EXAMINATION TYPE: CT brain wo con DATE OF EXAM: 05/16/2019 COMPARISON: 04/19/2018 HISTORY: Right sided headache and hypertension. CT DLP: 1034 mGycm Automated exposure control for dose reduction was used. Ventricles and sulci appear normal. There is no mass effect nor midline shift. There is no sign of in tracranial hemorrhage. The calvarium is intact. IMPRESSION: Head CT scan is normal for age. No change.
--- NOTE | 2019-05-16 21:54 | CT ---
EXAMINATION TYPE: CT angio head neck DATE OF EXAM: 05/16/2019 COMPARISON: 12/01/2017 HISTORY: Right sided headache and hypertension. CT DLP: 332.1 mGycm Automated exposure control for dose reduction was used. CONTRAST: Performed with IV Contrast, patient injected with 65ml mL of Isovue 370. Multiple axial sections were obtained from the aortic arch to the vertex of the brain with intravenou s contrast. There are 3-D post processed images. There is normal branching pattern of the great vessels on the aortic arch. There is bilateral arteria l flow in the subclavian arteries. There is bilateral arterial flow in the common internal and store product demonstrator al carotid arteries. There is mild plaque at the carotid artery bifurcations. There is 3 mm plaque wi th calcification on the left lateral wall of the left carotid artery bifurcation. There is similar ch selene on the posterior wall right carotid artery bifurcation. The carotid arteries show no evidence of stenosis. There is no evidence of dissection. There is bilateral arterial flow in the vertebral jun chidi which are fairly symmetric. There is arterial flow in the vertebrobasilar artery system. There is arterial flow in the anterior middle and posterior cerebral arteries. There is no evidence o f intracranial aneurysm or neovascularity. There is no mass effect. There is normal contrast opacific ation of the venous sinuses. IMPRESSION: No evidence of hemodynamic stenosis. Negative CT angiogram of the brain. Mild atheromatous change in the carotid arteries at the bifurcations without evidence of stenosis.
[2019-05-17 02:42] LABS: Cholesterol 156 mg/dL (<200); HDL Cholesterol 70 mg/dL (40-60); LDL Cholesterol,Calculated 75 mg/dL (0-99); Triglycerides 55 mg/dL (<150)
[2019-05-17] MEDS: SODIUM CHLORIDE 0.9% 1,000 ML IV SCH ×3 (08:00→23:19)
[2019-05-17] MEDS ORDERED: NON FORMULARY DRUG (Folic Acid [Folic Acid] 0.4 MG) PO SCH (09:00)
[2019-05-17] MEDS ORDERED: FAMOTIDINE 20 MG TAB PO SCH (09:00)
[2019-05-17] MEDS: CHOLECALCIFEROL 1,000 UNIT TAB PO SCH (09:50)
[2019-05-17] MEDS: CLOPIDOGREL 75 MG TAB PO SCH (09:50)
[2019-05-17] MEDS: CYANOCOBALAMIN 500 MCG TAB PO SCH (09:51)
[2019-05-17] MEDS: LISINOPRIL 20 MG TAB PO SCH ×2 (09:54→21:26)
--- NOTE | 2019-05-17 12:10 | P.CNNES ---
History of Present Illness Consult date: 05/17/19 Requesting physician: Donald Torres Reason for Consult: Recent CVA History of Present Illness: Patient is a 79-year-old female who states that yesterday she was noticing intermittent pain in the left parietal region, that would last for 30 seconds to a minute, and then wouldn't go away off and on for several hours. It would occur every 2 minutes off and on. She checked her blood pressure was 220/more than 100 diastolic. Patient therefore came to the ER, and arrived here at 6:52 PM. When she arrived, her blood pressure was 220/100, pulse rate 108 and temperature 97.7. The blood pressure did improve to 162/95 in 3 hours. Patient also noticed some floaters in her right eye. She states that she usually gets f loaters in her right eye, whenever her blood pressure is high. Patient says that she has seen an court transcriber last February and her eyes were checked out fine. Patient also mentions that about 2 weeks ago, one day she noticed some drooling out of left corner of the mouth although her blood pressure was fine. Patient underwent computed tomography scan of the head, which is normal. CTA of head and neck showed no evidence of hemodynamic stenosis. Negative CTA of the brain. Mild atheromatous change in the carotid arteries at the bifurcations without evidence of stenosis. EKG shows normal sinus rhythm with occasional PVCs. Chest x-ray showed postsurgical changes in the right lung. No acute lung disease. Right upper lobe scarring. Right basilar rule out diaphragmatic scarring. No change compared to the old exam. Patient's total cholesterol is 156, LDL 75, HDL 70 and triglycerides 55. AST is mildly elevated 37 but ALT normal. Patient's last 2-D echo from 12/02/2017 showed sinus rhythm, EF 55-60%. Trace to mild aortic regurgitation. Her last hemoglobin A1c is 5.8 on 12/02. 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 Patient has been on Plavix since then. Patient has never smoked, never drank. Patient follows up with Dr. Way. Review of Systems As mentioned in HPI. Otherwise all review of systems completely unremarkable. 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)", ovarian cyst removal left side, colonoscopy/polypectomy-be nign, squamous cell skin ca removed(lip) Past Anesthesia/Blood Transfusion Reactions: Motion Sickness, Postoperative Nausea & Vomiting (PONV) Past Psychological History: No Psychological Hx Reported Smoking Status: Never smoker Past Alcohol Use History: None Reported Past Drug Use History: None Reported - Past Family History Sister(s) Family Medical History: Cancer Additional Family Medical History / Comment(s): breast cancer Brother(s) Family Medical History: Cancer Additional Family Medical History / Comment(s): colon cancer Medications and Allergies Home Medications Medication Instructions Recorded Confirmed Type Cholecalciferol (Vitamin D3) 2,000 unit PO DAILY 12/01/17 05/16/19 History [Vitamin D3] Cinnamon Bark [Cinnamon] 500 mg PO DAILY 12/01/17 05/16/19 History Atorvastatin [Lipitor] 40 mg PO HS #30 tab 12/03/17 05/16/19 Rx Clopidogrel [Plavix] 75 mg PO DAILY 01/03/18 05/16/19 History Folic Acid 0.4 mg PO DAILY 01/03/18 05/16/19 History Cyanocobalamin (Vitamin B-12) 2,500 mcg PO DAILY 05/16/19 05/16/19 History [Vitamin B-12] Lisinopril 20 mg PO BID 05/16/19 05/16/19 History Allergies Allergy/AdvReac Type Severity Reaction Status Date / Time amoxicillin Allergy Rash/Hives Verified 05/16/19 22:03 codeine Allergy Rash/Hives/ Verified 05/16/19 22:03 Hallucinati ons morphine Allergy Rash/Hives/ Verified 05/16/19 22:03 Hallucinati ons Penicillins Allergy Rash/Hives Verified 05/16/19 22:03 hydromorphone [From Dilaudid] AdvReac Hallucinati Verified 05/16/19 22:03 ons ondansetron [From Zofran] AdvReac Nausea & Verified 05/16/19 22:03 Vomiting Physical Examination - Vital Signs Vital Signs: Vital Signs Temp Pulse Resp BP Pulse Ox 05/17/19 10:00 16 140/71 05/17/19 09:00 138/91 94 L 05/17/19 08:03 139/76 95 05/17/19 07:00 139/76 05/16/19 23:55 97.8 F 77 16 131/76 96 05/16/19 21:46 85 18 162/95 05/16/19 18:55 97.7 F 108 H 20 220/100 96 Intake and Output 05/16/19 05/17/19 05/17/19 22:59 06:59 14:59 Other: Weight 64.41 kg On examination patient is an elderly female, in no distress. Patient is alert awake oriented to time place and person. Speech and language functions normal. Attention and concentration fund of knowledge is adequate. On cranial examination pupils are round and reactive to light. Visual shea are full, extra ocular muscles are intact. Face is symmetric and tongue protrudes the midline. Palatal elevation and sensation normal. On muscle strength testing there is no pronator drift and the strength is normal in arms and legs are fle xor 1+ and plantars downgoing sensory touch is equal to no ataxia for [id number] testing. Tone and bulk of muscles normal. Gait deferred. No bruit or murmur S1 and S2 audible peripheral pulses present. Results - Laboratory Findings CBC and BMP: 05/16/19 19:56 05/16/19 19:56 Abnormal Lab Findings: Abnormal Labs 05/16/19 05/16/19 05/17/19 19:56 19:56 02:12 Lymphocytes # 0.9 L AST 37 H HDL Cholesterol 70 H Assessment and Plan Assessment: * Transient, intermittent left parietal headache, possible due to uncontrolled hypertension/hypertensive urgency. Her current neurological examination is normal. Computed tomography scan of the head and CTA of head and neck are normal. Patient has transient floaters in the right eye and an episode of drooling out of left corner of mouth. This could be related to hypertensive urgency although TIA is also a possibility. * Hypertension Plan: * Patient's current neurological examination is normal. * Patient should continue Plavix 75 mg and Lipitor 40 mg daily. * Optimize control of blood pressure. * We will check 2-D echo to complete TIA workup. * Neurologically otherwise clear for discharge.
[2019-05-17 20:14] VITALS: RESP 16
[2019-05-17] MEDS ORDERED: ATORVASTATIN 40 MG TAB PO SCH (21:00)
--- NOTE | 2019-05-17 23:12 | P.HPIM ---
History of Present Illness H&P Date: 05/17/19 Chief Complaint: Left-sided headache and elevated blood pressure Patient is a 79-year-old female with a known history of CVA/TIA, hyperlipidemia and hypertension came to ER with the complaints of elevated blood pressures and left-sided. Her headache since yesterday. Patient says that she is checking her blood pressure at home and was greater than 220/107. Patient is also complaining of left-sided headache. Denied any difficulty in speech are expressive aphasia. Denied any focal weakness of the bilateral lower extremities and upper extremities. Patient says that her headache last about 30 seconds to 1 minute. Patient did have a history of CVA 2 years ago and no residual weakness. Denied any fever or chills. No neck stiffness. No cough or sputum production. No dizziness or lightheadedness. No palpitations. No chest pain or shortness of breath. Patient had a DOUGLAS and stress test was done about a year back, was negative. Patient was also placed on bowling floor desk clerk to rule out atrial fibrillation which was also negative study. Patient was also worked up for secondary hypertension as an outpatient. Patient states that 2 weeks ago she had some difficulty with her left side of the face and residual droop according to the family. Denied any slurred speech or expressive aphasia currently. Patient says that she also noticed floaters in the right eye yesterday briefly. Blood pressure is currently improved to SBP 150s. CT head showed no acute intracranial process. CT angiogram of the head and neck showed no evidence of hemodynamically significant stenosis. EKG showed normal sinus rhythm Chest x-ray showed postsurgical changes in the right lung. No acute cardiopulmonary process. He is 75, AST 37 and ALT within normal limits Patient is currently taking Plavix at home. Review of Systems Constitutional: Patient denies any fever or chills . No generalized weakness or weight loss. Abdomen: Patient denied nausea vomiting and diarrhea and abdominal pain. Cardiovascular: Patient denies any chest pain or short of breath no palpitations. Respiratory: patient denied any cough is from production. No shortness of breath Neurologic: Patient denied any numbness or tingling headache. Musculoskeletal: Patient denies any complaints of joint swelling or deformity. Skin: Negative Psychiatric: Negative Endocrine: No heat or cold intolerance. No recent weight gain. Genitourinary: No dysuria or hematuria. 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)", ovarian cyst removal left side, colonoscopy/polypectomy- benign, squamous cell skin ca removed(lip) Past Anesthesia/Blood Transfusion Reactions: Motion Sickness, Postoperative Na usea & Vomiting (PONV) Past Psychological History: No Psychological Hx Reported Smoking Status: Never smoker Past Alcohol Use History: None Reported Past Drug Use History: None Reported - Past Family History Sister(s) Family Medical History: Cancer Additional Family Medical History / Comment(s): breast cancer Brother(s) Family Medical History: Cancer Additional Family Medical History / Comment(s): colon cancer Father Additional Family Medical History / Comment(s): Enlarged heart Mother Family Medical History: Congestive Heart Failure (CHF) Medications and Allergies Home Medications Medication Instructions Recorded Confirmed Type Cholecalciferol (Vitamin D3) 2,000 unit PO DAILY 12/01/17 05/16/19 History [Vitamin D3] Cinnamon Bark [Cinnamon] 500 mg PO DAILY 12/01/17 05/16/19 History Atorvastatin [Lipitor] 40 mg PO HS #30 tab 12/03/17 05/16/19 Rx Clopidogrel [Plavix] 75 mg PO DAILY 01/03/18 05/16/19 History Folic Acid 0.4 mg PO DAILY 01/03/18 05/16/19 History Cyanocobalamin (Vitamin B-12) 2,500 mcg PO DAILY 05/16/19 05/16/19 History [Vitamin B-12] Lisinopril 20 mg PO BID 05/16/19 05/16/19 History Allergies Allergy/AdvReac Type Severity Reaction Status Date / Time amoxicillin Allergy Rash/Hives Verified 05/16/19 22:03 codeine Allergy Rash/Hives/ Verified 05/16/19 22:03 Hallucinati ons morphine Allergy Rash/Hives/ Verified 05/16/19 22:03 Hallucinati ons Penicillins Allergy Rash/Hives Verified 05/16/19 22:03 hydromorphone [From Dilaudid] AdvReac Hallucinati Verified 05/16/19 22:03 ons ondansetron [From Zofran] AdvReac Nausea & Verified 05/16/19 22:03 Vomiting Physical Exam Vitals: Vital Signs Temp Pulse Resp BP Pulse Ox 05/17/19 10:00 16 140/71 05/17/19 09:00 138/91 94 L 05/17/19 08:03 139/76 95 05/17/19 07:00 139/76 05/16/19 23:55 97.8 F 77 16 131/76 96 05/16/19 21:46 85 18 162/95 05/16/19 18:55 97.7 F 108 H 20 220/100 96 Intake and Output 05/16/19 05/17/19 05/17/19 22:59 06:59 14:59 Other: Weight 64.41 kg PHYSICAL EXAMINATION: Patient is lying in the bed comfortably, no acute distress, awake alert and oriented.. HEENT: Normocephalic. Neck is supple. Pupils reactive. Nostrils clear. Oral cavity is moist. Ears reveal no drainage. Neck reveals no JVD, carotid bruits, or thyromegaly. CHEST EXAMINATION: Trachea is central. Symmetrical expansion. Lung shea clear to auscultation and percussion. CARDIAC: Normal S1, S2 with no gallops. No murmurs ABDOMEN: Soft. Bowel sounds normal. No organomegaly. No abdominal bruits. Extremities: reveal no edema. No clubbing or cyanosis Neurologically awake, alert, oriented x3 with well-coordinated movements. No focal deficits noted Skin: No rash or skin lesions. Psychiatric: Coperative. Nonsuicidal Musculoskeletal: No joint swelling or deformity. Normal range of motion. Results CBC & Chem 7: 05/16/19 19:56 05/16/19 19:56 Labs: Abnormal Lab Results - Last 24 Hours (Table) 05/16/19 05/16/19 05/17/19 Range/Units 19:56 19:56 02:12 Lymphocytes # 0.9 L (1.0-4.8) k/uL AST 37 H (14-36) U/L HDL Cholesterol 70 H (40-60) mg/dL Thrombosis Risk Factor Assmnt - DVT/VTE Prophylaxis DVT/VTE Prophylaxis: Pharmacologic Prophylaxis ordered Assessment and Plan Assessment: Uncontrolled hypertension/hypertensive urgency. Improved now. Left-sided transient headache likely due to hypertensive urgency. Resolving now. Also had floaters in the right eye and an episode of drooling out of left corner of mouth. Possible TIA History of CVA 2 years ago. DVT prophylaxis with heparin subcu Plan: Patient will be continued on home blood pressure medication, lisinopril 20 twice a day and continue with Plavix and Lipitor. Monitor blood pressure closely and titrate medications as needed. Neurology was consulted. CT head and CT angiography head and neck were negative for any acute process. 2-D echoc ardiogram was ordered. Continue the telemetry monitoring and further recommendations based on the cl inical course. Time with Patient: Greater than 30
[2019-05-17] MEDS: HEPARIN SODIUM,PORCINE 5,000 UNIT/ML 1 ML VIAL SQ SCH (23:18)
--- NOTE | 2019-05-18 07:14 | ECHOF ---
Referral Reason:TIAs MEASUREMENTS -------- HEIGHT: 157.5 cm WEIGHT: 64.4 kg BP: RVIDd: 2.6 cm (< 3.3) IVSd: 1.7 cm (0.6 - 1.1) LVIDd: 3.5 cm (3.9 - 5.3) LVPWd: 1.4 cm (0.6 - 1.1) IVSs: 1.8 cm LVIDs: 2.3 cm LVPWs: 1.9 cm Ao Diam: 3.0 cm (2.0 - 3.7) AV Cusp: 2.4 cm (1.5 - 2.6) LA Diam: 2.6 cm (2.7 - 3.8) MV EXCURSION: 13.189 mm (> 18.000) MV EF SLOPE: 52 mm/s (70 - 150) EPSS: 0.9 cm MV E Jean Paul: 0.65 m/s MV DecT: 148 ms MV A Jean Paul: 0.95 m/s MV E/A Ratio: 0.68 AR PHT: 401 ms RAP: 5.00 mmHg RVSP: 16.77 mmHg FINDINGS -------- Sinus rhythm. This was a technically difficult study with suboptimal views. The left ventricular size is normal. There is moderate concentric left ventricular hypertrophy. O verall left ventricular systolic function is normal with, an EF between 55 - 60 %. The right ventricle is normal in size. The left atrial size is normal. The right atrial size is normal. 1.5mg of Lumason was utilized for enhancement of images The aortic valve is trileaflet and appears structurally normal. There is mild aortic regurgitation. The mitral valve is normal. There is trace mitral regurgitation. The tricuspid valve appears structurally normal. Trace tricuspid regurgitation present. Right leatha tricular systolic pressure is normal at < 35 mmHg. There is no pulmonic regurgitation present. The aortic root size is normal. IVC Not well visulized. There is no pericardial effusion. CONCLUSIONS -------- 1. Sinus rhythm. 2. This was a technically difficult study with suboptimal views. 3. The left ventricular size is normal. 4. There is moderate concentric left ventricular hypertrophy. 5. Overall left ventricular systolic function is normal with, an EF between 55 - 60 %. 6. The right ventricle is normal in size. 7. The left atrial size is normal. 8. The right atrial size is normal. 9. 1.5mg of Lumason was utilized for enhancement of images 10. The aortic valve is trileaflet and appears structurally normal. 11. There is mild aortic regurgitation. 12. The mitral valve is normal. 13. There is trace mitral regurgitation. 14. The tricuspid valve appears structurally normal. 15. Trace tricuspid regurgitation present. 16. Right ventricular systolic pressure is normal at < 35 mmHg. 17. There is no pulmonic regurgitation present. 18. The aortic root size is normal. 19. IVC Not well visulized. 20. There is no pericardial effusion. CAN TENDER: Nabila Zamorano RDCS
[2019-05-18] MEDS ORDERED: FAMOTIDINE 20 MG TAB PO SCH (09:00)
[2019-05-18] MEDS: CLOPIDOGREL 75 MG TAB PO SCH (10:39)
[2019-05-18] MEDS: CHOLECALCIFEROL 1,000 UNIT TAB PO SCH (10:39)
[2019-05-18] MEDS: CYANOCOBALAMIN 500 MCG TAB PO SCH (10:39)
[2019-05-18] MEDS: LISINOPRIL 20 MG TAB PO SCH (10:39)
[2019-05-18] MEDS: HEPARIN SODIUM,PORCINE 5,000 UNIT/ML 1 ML VIAL SQ SCH (10:42)
[2019-05-18 11:40] VITALS: TEMP 97.4
[2019-05-18 12:21] VITALS: BP 160/77; PULSE 75
== END 2019-05-18 12:45 | disposition home or self-care (01) ==
LOC: EC 18:52 → INTOOBSV 23:53 → 3SCARD 23:53
PROVIDERS: ADMIT Internal Medicine; ATTEND Internal Medicine
DX: I16.0 Hypertensive urgency (principal); I10 Essential (primary) hypertension; R51 Headache; H43.391 Other vitreous opacities, right eye; Z86.73 Personal history of transient ischemic attack (TIA), and cerebral infarction without residual deficits; E78.5 Hyperlipidemia, unspecified; Z85.828 Personal history of other malignant neoplasm of skin; Z79.899 Other long term (current) drug therapy; Z88.0 Allergy status to penicillin; Z88.5 Allergy status to narcotic agent; Z88.8 Allergy status to other drugs, medicaments and biological substances; Z80.3 Family history of malignant neoplasm of breast; Z80.0 Family history of malignant neoplasm of digestive organs; Z82.49 Family history of ischemic heart disease and other diseases of the circulatory system; Z90.710 Acquired absence of both cervix and uterus; Z90.49 Acquired absence of other specified parts of digestive tract; Z90.89 Acquired absence of other organs
CPT/HCPCS: 96361 ×3; 96360; 99285; 36415; 93005; 97161; 97165; 80061; 80053; 82550; 83735; 84484 ×2; 85025; 85610; 85730; 71046; 70496; 70450; 70498; G0378 ×2; C8929; Q9950; Q9967; 93306

== ENCOUNTER 2019-05-19 13:07 | Observation (INO) | payer MEDICARE, BC ==
--- NOTE | 2019-05-19 14:07 | ED ---
General Adult HPI - General Chief complaint: Dizziness Stated complaint: bp elevated Time Seen by Provider: 05/19/19 13:10 Source: patient, RN notes reviewed, old records reviewed Mode of arrival: ambulatory Limitations: no limitations - History of Present Illness Initial comments: Is a 79-year-old female presents emergency Department with a past medical history significant for stroke or pressure. Patient states today at home she started feeling lightheaded and thought she was given a passout. Patient states became diaphoretic and at that point she thought she needed to come the emergency department. Patient states she was sitting when this occurred. Patient states she had no chest pain or palpitations. Patient states took her blood pressure at that time it was 187 systolic. Patient states she had no abdominal pain no nausea vomiting diarrhea. Patient denies any recent fever chills or cough. Patient denies any injury or trauma. - Related Data Home Medications Medication Instructions Recorded Confirmed Cholecalciferol (Vitamin D3) 2,000 unit PO DAILY@0630 12/01/17 05/19/19 [Vitamin D3] Cinnamon Bark [Cinnamon] 500 mg PO DAILY@0630 12/01/17 05/19/19 Clopidogrel [Plavix] 75 mg PO DAILY@0630 01/03/18 05/19/19 Folic Acid 0.4 mg PO DAILY@0630 01/03/18 05/19/19 Cyanocobalamin (Vitamin B-12) 2,500 mcg PO DAILY@0630 05/16/19 05/19/19 [Vitamin B-12] Lisinopril 20 mg PO BID@0630,1830 05/16/19 05/19/19 Atorvastatin [Lipitor] 40 mg PO HS@1830 05/19/19 05/19/19 Allergies Allergy/AdvReac Type Severity Reaction Status Date / Time amoxicillin Allergy Rash/Hives Verified 05/19/19 16:21 codeine Allergy Rash/Hives/ Verified 05/19/19 16:21 Hallucinati ons morphine Allergy Rash/Hives/ Verified 05/19/19 16:21 Hallucinati ons Penicillins Allergy Rash/Hives Verified 05/19/19 16:21 hydromorphone [From Dilaudid] AdvReac Hallucinati Verified 05/19/19 16:21 ons ondansetron [From Zofran] AdvReac Nausea & Verified 05/19/19 16:21 Vomiting Review of Systems ROS Statement: Those systems with pertinent positive or pertinent negative responses have been documented in the HPI. ROS Other: All systems not noted in ROS Statement are negative. 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)", ovarian cyst removal left side, colonoscopy/polypectomy- benign, squamous cell skin ca removed(lip) Past Anesthesia/Blood Transfusion Reactions: Motion Sickness, Postoperative Nausea & Vomiting (PONV) Past Psychological History: No Psychological Hx Reported Smoking Status: Never smoker Past Alcohol Use History: None Reported Past Drug Use History: None Reported - Past Family History Sister(s) Family Medical History: Cancer Additional Family Medical History / Comment(s): breast cancer Brother(s) Family Medical History: Cancer Additional Family Medical History / Comment(s): colon cancer Father Additional Family Medical History / Comment(s): Enlarged heart Mother Family Medical History: Congestive Heart Failure (CHF) General Exam - General Exam Comments Initial Comments: GENERAL: Patient is well-developed and well-nourished. Patient is nontoxic and well- hydrated and is in no acute distress. ENT: Neck is soft and supple. No significant lymphadenopathy is noted. Oropharynx is clear. Moist mucous membranes. Neck has full range of motion without eliciting any pain. EYES: The sclera were anicteric and conjunctiva were pink and moist. Extraocular movements were intact and pupils were equal round and reactive to light. Eyelids were unremarkable. PULMONARY: Unlabored respirations. Good breath sounds bilaterally. No audible rales rh onchi or wheezing was noted. CARDIOVASCULAR: There is a regular rate and rhythm without any murmurs gallops or rubs. ABDOMEN: Soft and nontender with normal bowel sounds. No palpable organomegaly was noted. There is no palpable pulsatile mass. SKIN: Skin is clear with no lesions or rashes and otherwise unremarkable. NEUROLOGIC: Patient is alert and oriented x3. Cranial nerves II through XII are grossly intact. Motor and sensory are also intact. Normal speech, volume and content. Symmetrical smile MUSCULOSKELETAL: Normal extremities with adequate strength and full range of motion. No lower extremity swelling or edema. No calf tenderness. LYMPHATICS: No significant lymphadenopathy is noted PSYCHIATRIC: Normal psychiatric evaluation. Limitations: no limitations Course Vital Signs 05/19/19 05/19/19 05/19/19 13:11 14:00 14:31 Temperature 98.2 F Pulse Rate 103 H 83 Pulse Rate [ 93 Sitting] Pulse Rate [ 98 Standing] Pulse Rate [ 89 Supine] Respiratory 20 16 16 Rate Blood Pressure 197/101 158/93 Blood Pressure 176/91 [Sitting] Blood Pressure 176/108 [Standing] Blood Pressure 174/87 [Supine] O2 Sat by Pulse 97 99 Oximetry Medical Decision Making - Medical Decision Making EKG shows normal sinus rhythm at 88 bpm PA interval 158 QRS is 90 QT interval 380 QTC is 459. Patient's EKG shows no ST segment elevation or depression. - Lab Data Result diagrams: 05/19/19 14:10 05/19/19 14:10 Lab Results 05/19/19 05/19/19 05/19/19 Range/Units 14:10 14:10 14:10 WBC 5.6 (3.8-10.6) k/uL RBC 4.63 (3.80-5.40) m/uL Hgb 13.8 (11.4-16.0) gm/dL Hct 42.7 (34.0-46.0) % MCV 92.3 (80.0-100.0) fL MCH 29.9 (25.0-35.0) pg MCHC 32.4 (31.0-37.0) g/dL RDW 13.2 (11.5-15.5) % Plt Count 255 (150-450) k/uL Neutrophils % 80 % Lymphocytes % 13 % Monocytes % 5 % Eosinophils % 1 % Basophils % 0 % Neutrophils # 4.4 (1.3-7.7) k/uL Lymphocytes # 0.7 L (1.0-4.8) k/uL Monocytes # 0.3 (0-1.0) k/uL Eosinophils # 0.0 (0-0.7) k/uL Basophils # 0.0 (0-0.2) k/uL PT 9.9 (9.0-12.0) sec INR 0.9 (<1.2) APTT 22.6 (22.0-30.0) sec Sodium 139 (137-145) mmol/L Potassium 4.5 (3.5-5.1) mmol/L Chloride 105 (98-107) mmol/L Carbon Dioxide 20 L (22-30) mmol/L Anion Gap 14 mmol/L BUN 17 (7-17) mg/dL Creatinine 0.77 (0.52-1.04) mg/dL Est GFR (CKD-EPI)AfAm 86 (>60 ml/min/1.73 sqM) Est GFR (CKD-EPI)NonAf 75 (>60 ml/min/1.73 sqM) Glucose 92 (74-99) mg/dL Calcium 9.9 (8.4-10.2) mg/dL Magnesium 2.2 (1.6-2.3) mg/dL Total Bilirubin 0.7 (0.2-1.3) mg/dL AST 34 (14-36) U/L ALT 26 (4-34) U/L Alkaline Phosphatase 83 (38-126) U/L Troponin I (0.000-0.034) ng/mL Total Protein 7.9 (6.3-8.2) g/dL Albumin 4.8 (3.5-5.0) g/dL Urine Color Urine Appearance (Clear) Urine pH (5.0-8.0) Ur Specific [place] (1.001-1.035) Urine Protein (Negative) Urine Glucose (UA) (Negative) Urine Ketones (Negative) Urine Blood (Negative) Urine Nitrite (Negative) Urine Bilirubin (Negative) Urine Urobilinogen (<2.0) mg/dL Ur Leukocyte Esterase (Negative) 05/19/19 05/19/19 Range/Units 14:10 14:15 WBC (3.8-10.6) k/uL RBC (3.80-5.40) m/uL Hgb (11.4-16.0) gm/dL Hct (34.0-46.0) % MCV (80.0-100.0) fL MCH (25.0-35.0) pg MCHC (31.0-37.0) g/dL RDW (11.5-15.5) % Plt Count (150-450) k/uL Neutrophils % % Lymphocytes % % Monocytes % % Eosinophils % % Basophils % % Neutrophils # (1.3-7.7) k/uL Lymphocytes # (1.0-4.8) k/uL Monocytes # (0-1.0) k/uL Eosinophils # (0-0.7) k/uL Basophils # (0-0.2) k/uL PT (9.0-12.0) sec INR (<1.2) APTT (22.0-30.0) sec Sodium (137-145) mmol/L Potassium (3.5-5.1) mmol/L Chloride (98-107) mmol/L Carbon Dioxide (22-30) mmol/L Anion Gap mmol/L BUN (7-17) mg/dL Creatinine (0.52-1.04) mg/dL Est GFR (CKD-EPI)AfAm (>60 ml/min/1.73 sqM) Est GFR (CKD-EPI)NonAf (>60 ml/min/1.73 sqM) Glucose (74-99) mg/dL Calcium (8.4-10.2) mg/dL Magnesium (1.6-2.3) mg/dL Total Bilirubin (0.2-1.3) mg/dL AST (14-36) U/L ALT (4-34) U/L Alkaline Phosphatase (38-126) U/L Troponin I <0.012 (0.000-0.034) ng/mL Total Protein (6.3-8.2) g/dL Albumin (3.5-5.0) g/dL Urine Color Light Yellow Urine Appearance Clear (Clear) Urine pH 6.0 (5.0-8.0) Ur Specific [place] 1.006 (1.001-1.035) Urine Protein Negative (Negative) Urine Glucose (UA) Negative (Negative) Urine Ketones Trace H (Negative) Urine Blood Negative (Negative) Urine Nitrite Negative (Negative) Urine Bilirubin Negative (Negative) Urine Urobilinogen <2.0 (<2.0) mg/dL Ur Leukocyte Esterase Negative (Negative) Disposition Clinical Impression: Hypertension, Near syncope Disposition: ADMITTED IP TO THIS HOSP Referrals: Perez Cool MD [Primary Care Provider] - 1-2 days Time of Disposition: 17:00
[2019-05-19 14:34] LABS: Basophils % (A) 0 %; Eosinophils % (A) 1 %; HCT 42.7 % (34.0-46.0); HGB 13.8 gm/dL (11.4-16.0); Lymphocytes # (A) 0.7 k/uL (1.0-4.8); Lymphocytes % (A) 13 %; MCH 29.9 pg (25.0-35.0); MCHC 32.4 g/dL (31.0-37.0); MCV 92.3 fL (80.0-100.0); Mean Platelet Volume 7.3; Monocytes # (A) 0.3 k/uL (0-1.0); Monocytes % (A) 5 %; Neutrophils # (A) 4.4 k/uL (1.3-7.7); Neutrophils % (A) 80 %; Platelet Count 255 k/uL (150-450); RBC 4.63 m/uL (3.80-5.40); RDW 13.2 % (11.5-15.5); WBC 5.6 k/uL (3.8-10.6)
[2019-05-19 14:34] LABS: Appearance,Urine Clear (Clear); Bilirubin,Urine Negative (Negative); Blood,Urine Negative (Negative); Color,Urine Light Yellow; Glucose,Urine (UA) Negative (Negative); Ketones,Urine Trace (Negative); Leukocyte Esterase,Urine Negative (Negative); Nitrite,Urine Negative (Negative); Protein,Urine Negative (Negative); Specific Gravity,Urine 1.006 (1.001-1.035); Urobilinogen,Urine <2.0 mg/dL (<2.0)
[2019-05-19 14:40] LABS: Albumin 4.8 g/dL (3.5-5.0); Calcium 9.9 mg/dL (8.4-10.2); Magnesium 2.2 mg/dL (1.6-2.3); Potassium 4.5 mmol/L (3.5-5.1); Total Bilirubin 0.7 mg/dL (0.2-1.3); Total Protein 7.9 g/dL (6.3-8.2)
[2019-05-19 14:44] LABS: INR 0.9 (<1.2); Partial Thromboplastin Time 22.6 sec (22.0-30.0); Prothrombin Time 9.9 sec (9.0-12.0)
--- NOTE | 2019-05-19 15:05 | XR ---
EXAMINATION TYPE: XR chest 2V DATE OF EXAM: 05/19/2019 COMPARISON: Prior chest x-ray 05/16/2019 HISTORY: Chest pain TECHNIQUE: Frontal and lateral views of the chest are obtained. FINDINGS: Postop changes are stable. There are overlying cardiac leads. There is elevation of right hemidiaphragm as on prior exam. Aorta is dense. There is no focal air space opacity, pleural effusion , or pneumothorax seen. The cardiac silhouette size is within normal limits. The osseous structure s are intact. IMPRESSION: No acute cardiopulmonary process.
[2019-05-19] MEDS ORDERED: NITROGLYCERIN SL TABS 0.4 MG TAB SUBLINGUAL PRN (15:54)
[2019-05-19] MEDS: ATORVASTATIN 40 MG TAB PO SCH (18:11)
[2019-05-19] MEDS: LISINOPRIL 20 MG TAB PO SCH (18:11)
--- NOTE | 2019-05-20 00:14 | P.HPIM ---
History of Present Illness H&P Date: 05/19/19 Chief Complaint: Dizziness Patient is a 79-year-old female with a past medical history of hypertension, hyperlipidemia, history of CVA/TIA with no residual weakness, borderline diabetes with no medications came to ER with complaints of lightheadedness and feeling of passing out this morning. Patient was discharged from the hospital yesterday. Patient was admitted to the hospital, days back due to complaints of headache and uncontrolled blood pressure with SBP greater than 190s. Patient was worked up for stroke including CT head and CT angiogram of the neck and head was done, was essentially negative studies.. 2-D echo cardiac exam showed normal ejection fraction. No segmental valvular abnormality so noted. Patient's blood pressure was controlled with her home dose of lisinopril 20 mg twice a day and was sent home. Patient was noted to have blood pressure in 160s is receiving and today morning when she took at home systolic was 187 mm hg, patient is also anxious about her blood pressure. Otherwise denied any chest pain or shortness of breath. No nausea vomiting or abdominal pain or diarrhea. No fever no chills. No cough or sputum production. Patient had previous workup for stroke including DOUGLAS and stress test was done. radiation monitor was also placed which showed no evidence of atrial fibrillation. Patient says that she was also tested for secondary hypertension including renal ultrasound and renin/Aldosterone levels. Chest x-ray showed no acute cardio pulmonary process. EKG normal sinus rhythm Troponin 1 negative UA negative for infection Review of Systems Constitutional: Patient denies any fever or chills . No generalized weakness or weight loss. Abdomen: Patient denied nausea vomiting and diarrhea and abdominal pain. Cardiovascular: Patient denies any chest pain or short of breath no palpitations. Respiratory: patient denied any cough is from production. No shortness of breat h Neurologic: Patient denied any numbness or tingling headache. Musculoskeletal: Patient denies any complaints of joint swelling or deformity. Skin: Negative Psychiatric: Negative Endocrine: No heat or cold intolerance. No recent weight gain. Genitourinary: No dysuria or hematuria. 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)", ovarian cyst removal left side, colonoscopy/polypectomy- benign, squamous cell skin ca removed(lip) Past Anesthesia/Blood Transfusion Reactions: Motion Sickness, Postoperative Nausea & Vomiting (PONV) Past Psychological History: No Psychological Hx Reported Smoking Status: Never smoker Past Alcohol Use History: None Reported Past Drug Use History: None Reported - Past Family History Sister(s) Family Medical History: Cancer Additional Family Medical History / Comment(s): breast cancer Brother(s) Family Medical History: Cancer Additional Family Medical History / Comment(s): colon cancer Father Additional Family Medical History / Comment(s): Enlarged heart Mother Family Medical History: Congestive Heart Failure (CHF) Medications and Allergies Home Medications Medication Instructions Recorded Confirmed Type Cholecalciferol (Vitamin D3) 2,000 unit PO DAILY@0630 12/01/17 05/19/19 History [Vitamin D3] Cinnamon Bark [Cinnamon] 500 mg PO DAILY@30 12/01/17 05/19/19 History Clopidogrel [Plavix] 75 mg PO DAILY@30 01/03/18 05/19/19 History Folic Acid 0.4 mg PO DAILY@0630 01/03/18 05/19/19 History Cyanocobalamin (Vitamin B-12) 2,500 mcg PO DAILY@0630 05/16/19 05/19/19 History [Vitamin B-12] Lisinopril 20 mg PO BID@0630,1830 05/16/19 05/19/19 History Atorvastatin [Lipitor] 40 mg PO HS@1830 05/19/19 05/19/19 History Allergies Allergy/AdvReac Type Severity Reaction Status Date / Time amoxicillin Allergy Rash/Hives Verified 05/19/19 16:21 codeine Allergy Rash/Hives/ Verified 05/19/19 16:21 Hallucinati ons morphine Allergy Rash/Hives/ Verified 05/19/19 16:21 Hallucinati ons Penicillins Allergy Rash/Hives Verified 05/19/19 16:21 hydromorphone [From Dilaudid] AdvReac Hallucinati Verified 05/19/19 16:21 ons ondansetron [From Zofran] AdvReac Nausea & Verified 05/19/19 16:21 Vomiting Physical Exam Vitals: Vital Signs Temp Pulse Pulse Pulse Pulse Resp BP 05/19/19 14:31 93 98 89 16 05/19/19 14:00 83 16 158/93 05/19/19 13:11 98.2 F 103 H 20 197/101 BP BP BP Pulse Ox 05/19/19 14:31 176/91 176/108 174/87 05/19/19 14:00 99 05/19/19 13:11 97 Intake and Output 05/19/19 05/19/19 05/19/19 06:59 14:59 22:59 Other: Weight 62.596 kg PHYSICAL EXAMINATION: Patient is lying in the bed comfortably, no acute distress, awake alert and oriented.. HEENT: Normocephalic. Neck is supple. Pupils reactive. Nostrils clear. Oral cavity is moist. Ears reveal no drainage. Neck reveals no JVD, carotid bruits, or thyromegaly. CHEST EXAMINATION: Trachea is central. Symmetrical expansion. Lung shea clear to auscultation and percussion. CARDIAC: Normal S1, S2 with no gallops. No murmurs ABDOMEN: Soft. Bowel sounds normal. No organomegaly. No abdominal bruits. Extremities: reveal no edema. No clubbing or cyanosis Neurologically awake, alert, oriented x3 with well-coordinated movements. No focal deficits noted Skin: No rash or skin lesions. Psychiatric: Coperative. Nonsuicidal Musculoskeletal: No joint swelling or deformity. Normal range of motion. Results CBC & Chem 7: 05/19/19 14:10 05/19/19 14:10 Labs: Abnormal Lab Results - Last 24 Hours (Table) 05/19/19 05/19/19 05/19/19 Range/Units 14:10 14:10 14:15 Lymphocytes # 0.7 L (1.0-4.8) k/uL Carbon Dioxide 20 L (22-30) mmol/L Urine Ketones Trace H (Negative) Thrombosis Risk Factor Assmnt - DVT/VTE Prophylaxis DVT/VTE Prophylaxis: Pharmacologic Prophylaxis ordered Assessment and Plan Assessment: Dizziness and lightheadedness likely due to hypertensive urgency. Uncontrolled hypertension/hypertensive urgency. Anxiety History of CVA 2 years ago. History of vertigo Moderate diabetes currently not on any medications. DVT prophylaxis with heparin subcu Plan: Patient will be continued on telemetry monitoring. Start back on home blood pressure medication lisinopril 20 mg twice a day and also started with metoprolol 12.5 mg twice daily due to tachycardia and anxiety. Monitor blood pressure closely. Patient had previous workup done at [facility] office. will consult cardiology for further evaluation. Discussed with the patient and her family at bedside in detail. Time with Patient: Greater than 30
[2019-05-20] MEDS: HEPARIN SODIUM,PORCINE 5,000 UNIT/ML 1 ML VIAL SQ SCH ×3 (01:09→17:00)
[2019-05-20 03:25] LABS: Cholesterol 192 mg/dL (<200); HDL Cholesterol 80 mg/dL (40-60); LDL Cholesterol,Calculated 97 mg/dL (0-99); Triglycerides 75 mg/dL (<150)
[2019-05-20] MEDS: CLOPIDOGREL 75 MG TAB PO SCH (06:05)
[2019-05-20] MEDS: LISINOPRIL 20 MG TAB PO SCH ×2 (06:05→21:54)
[2019-05-20] MEDS: CYANOCOBALAMIN 500 MCG TAB PO SCH (06:05)
[2019-05-20] MEDS: FOLIC ACID 1 MG TAB PO SCH (06:05)
[2019-05-20] MEDS ORDERED: ASPIRIN 325 MG TAB PO SCH (09:00)
[2019-05-20] MEDS ORDERED: METOPROLOL TARTRATE 12.5 MG TAB PO SCH (09:00)
--- NOTE | 2019-05-20 13:36 | P.CRDCN ---
History of Present Illness History of present illness: HISTORY OF PRESENTING ILLNESS This is a pleasant 79-year-old female past medical history significant for hypertension, dyslipidemia, vertigo and CVA. She denies prior history of c oronary artery disease. She follows in the office with Dr. Richard. We have been asked to see in consultation for dizziness and uncontrolled hypertension. She presented to the hospital after having symptoms of feeling lightheaded and checking her blood pressure she states was over 200 systolic. On arrival was 197/101. She denies chest pain, shortness of breath, palpitations, nausea or vomiting. She did feel like she was mildly diaphoretic. She has been initiated on Lopressor 12.5 mg twice a day and blood pressures have come down nicely this morning was 127/74. DIAGNOSTICS EKG reveals sinus mechanism with no acute ST or T-wave abnormalities. Chest xray negative for an acute cardiopulmonary process. Laboratory reviewed, CBC unremarkable, sodium 139, potassium 4.5, creatinine 0.77, magnesium 2.2, cardiac enzymes negative 3, TSH 4.3. Current cardiac medications include atorvastatin 40 mg daily, Plavix 75 mg daily and lisinopril 20 mg twice a day. Most recent echocardiogram obtained earlier this month reveals preserved LV systolic function with ejection fraction 55-60%. REVIEW OF SYSTEMS At the time of my exam: CONSTITUTIONAL: Denies fever or chills. CARDIOVASCULAR: Denies chest pain, shortness of breath, orthopnea, PND or palpitations. RESPIRATORY: Denies cough. GASTROINTESTINAL: Denies abdominal pain, diarrhea, constipation, nausea or vomiting. MUSCULOSKELETAL: Denies myalgias. NEUROLOGIC: Denies numbness, tingling or weakness. ENDOCRINE: Denies fatigue, weight change, polydipsia or polyurina. GENITOURINARY: Denies burning, hematuria or urgency with micturation. HEMATOLOGIC: Denies history of anemia or bleeding. PHYSICAL EXAMINATION CONSTITUTIONAL: No apparent distress. HEENT: Head is normocephalic. Pupils are equal, round. Sclerae anicteric. Mucous membranes of the mouth are moist. No JVD. No carotid bruit. CHEST EXAMINATION: Lungs are clear to auscultation. No chest wall tenderness is noted on palpation or with deep breathing. HEART EXAMINATION: Regular rate and rhythm. S1, S2 heard. No murmurs, gallops or rub. ABDOMEN: Soft, nontender. Positive bowel sounds. EXTREMITIES: 2+ peripheral pulses, no lower extremity edema and no calf tenderness. NEUROLOGIC EXAMINATION: Patient is awake, alert and oriented x3. ASSESSMENT Uncontrolled hypertension Dyslipidemia History of CVA PLAN Increase Lopressor to 25 mg twice a day. Continue lisinopril as previously ordered. Increase activity and ambulation in the halls. If her blood pressure remained stable she can be discharged home this afternoon. Follow-up in the office with Dr. Richard. Thank you kindly for this consultation. Nurse Practitioner note has been reviewed, I agree with a documented findings and plan of care. Patient was seen and examined. 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)", ovarian cyst removal left side, colonoscopy/polypectomy- benign, squamous cell skin ca removed(lip) Past Anesthesia/Blood Transfusion Reactions: Motion Sickness, Postoperative Nausea & Vomiting (PONV) Past Psychological History: No Psychological Hx Reported Smoking Status: Never smoker Past Alcohol Use History: None Reported Past Drug Use History: None Reported - Past Family History Sister(s) Family Medical History: Cancer Additional Family Medical History / Comment(s): breast cancer Brother(s) Family Medical History: Cancer Additional Family Medical History / Comment(s): colon cancer Father Additional Family Medical History / Comment(s): Enlarged heart Mother Family Medical History: Congestive Heart Failure (CHF) Medications and Allergies Home Medications Medication Instructions Recorded Confirmed Type Cholecalciferol (Vitamin D3) 2,000 unit PO DAILY@62912/01/17 05/19/19 History [Vitamin D3] Cinnamon Bark [Cinnamon] 500 mg PO DAILY@62912/01/17 05/19/19 History Clopidogrel [Plavix] 75 mg PO DAILY@62901/03/18 05/19/19 History Folic Acid 0.4 mg PO DAILY@62901/03/18 05/19/19 History Cyanocobalamin (Vitamin B-12) 2,500 mcg PO DAILY@0630 05/16/19 05/19/19 History [Vitamin B-12] Lisinopril 20 mg PO BID@0630,1830 05/16/19 05/19/19 History Atorvastatin [Lipitor] 40 mg PO HS@1830 05/19/19 05/19/19 History Allergies Allergy/AdvReac Type Severity Reaction Status Date / Time amoxicillin Allergy Rash/Hives Verified 05/19/19 16:21 codeine Allergy Rash/Hives/ Verified 05/19/19 16:21 Hallucinati ons morphine Allergy Rash/Hives/ Verified 05/19/19 16:21 Hallucinati ons Penicillins Allergy Rash/Hives Verified 05/19/19 16:21 hydromorphone [From Dilaudid] AdvReac Hallucinati Verified 05/19/19 16:21 ons ondansetron [From Zofran] AdvReac Nausea & Verified 05/19/19 16:21 Vomiting Physical Exam Vitals: Vital Signs Temp Pulse Pulse Pulse Pulse Resp BP 05/20/19 04:00 80 64 80 16 05/20/19 00:00 80 72 80 16 05/19/19 20:00 96.5 F L 80 78 80 16 05/19/19 17:55 98.2 F 80 80 20 05/19/19 17:45 98.0 F 05/19/19 17:00 75 20 157/86 05/19/19 16:00 79 18 150/83 05/19/19 15:00 78 18 149/78 05/19/19 14:31 93 98 89 16 05/19/19 14:00 83 16 158/93 BP BP BP Pulse Ox 05/20/19 04:00 127/74 96 05/20/19 00:00 108/67 97 05/19/19 20:00 134/64 94 L 05/19/19 17:55 161/88 95 05/19/19 17:45 05/19/19 17:00 97 05/19/19 16:00 98 05/19/19 15:00 99 05/19/19 14:31 176/91 176/108 174/87 05/19/19 14:00 99 Intake and Output 05/19/19 05/20/19 05/20/19 22:59 06:59 14:59 Intake Total 240 0 360 Balance 240 0 360 Intake: Oral 240 0 360 Other: Weight 62.596 kg 62 kg Results 05/19/19 14:10 05/19/19 14:10 Cardiac Enzymes 05/19/19 05/19/19 05/19/19 Range/Units 14:10 14:10 20:05 AST 34 (14-36) U/L Troponin I <0.012 <0.012 (0.000-0.034) ng/mL 05/20/19 Range/Units 01:45 AST (14-36) U/L Troponin I <0.012 (0.000-0.034) ng/mL Coagulation 05/19/19 Range/Units 14:10 PT 9.9 (9.0-12.0) sec APTT 22.6 (22.0-30.0) sec Lipids 05/19/19 Range/Units 14:10 Triglycerides 75 (<150) mg/dL Cholesterol 192 (<200) mg/dL HDL Cholesterol 80 H (40-60) mg/dL CBC 05/19/19 Range/Units 14:10 WBC 5.6 (3.8-10.6) k/uL RBC 4.63 (3.80-5.40) m/uL Hgb 13.8 (11.4-16.0) gm/dL Hct 42.7 (34.0-46.0) % Plt Count 255 (150-450) k/uL Comprehensive Metabolic Panel 05/19/19 Range/Units 14:10 Sodium 139 (137-145) mmol/L Potassium 4.5 (3.5-5.1) mmol/L Chloride 105 (98-107) mmol/L Carbon Dioxide 20 L (22-30) mmol/L BUN 17 (7-17) mg/dL Creatinine 0.77 (0.52-1.04) mg/dL Glucose 92 (74-99) mg/dL Calcium 9.9 (8.4-10.2) mg/dL AST 34 (14-36) U/L ALT 26 (4-34) U/L Alkaline Phosphatase 83 (38-126) U/L Total Protein 7.9 (6.3-8.2) g/dL Albumin 4.8 (3.5-5.0) g/dL Current Medications Generic Name Dose Route Start Last Admin Trade Name Freq PRN Reason Stop Dose Admin Atorvastatin Calcium 40 mg 05/19/19 18:30 05/19/19 18:11 Lipitor PO 40 mg DAILY@1830 [facility] Administration Clopidogrel Bisulfate 75 mg 05/20/19 06:30 05/20/19 06:05 Plavix PO 75 mg DAILY@0630 [facility] Administration Cyanocobalamin 2,500 mcg 05/20/19 06:30 05/20/19 06:05 Vitamin B-12 PO 2,500 mcg DAILY@0630 [facility] Administration Folic Acid 0.5 mg 05/20/19 06:30 05/20/19 06:05 Folic Acid PO 0.5 mg DAILY@0630 [facility] Administration Heparin Sodium (Porcine) 5,000 unit 05/20/19 00:00 05/20/19 10:05 Heparin SQ 5,000 unit Q8HR [facility] Administration Lisinopril 20 mg 05/19/19 18:30 05/20/19 06:05 Zestril PO 20 mg BID@0630,1830 [facility] Administration Metoprolol Tartrate 12.5 mg 05/20/19 09:00 05/20/19 10:05 Lopressor PO 12.5 mg BID [facility] Administration Nitroglycerin 0.4 mg 05/19/19 15:54 Nitrostat SUBLINGUAL Q5M PRN Chest Pain Intake and Output 05/19/19 05/20/19 05/20/19 22:59 06:59 14:59 Intake Total 240 0 360 Balance 240 0 360 Intake: Oral 240 0 360 Other: Weight 62.596 kg 62 kg 05/19/19 14:10 05/19/19 14:10
[2019-05-20] MEDS: ATORVASTATIN 40 MG TAB PO SCH (17:42)
[2019-05-20] MEDS ORDERED: LISINOPRIL 10 MG TAB PO SCH (21:00)
[2019-05-20] MEDS: METOPROLOL TARTRATE 25 MG TAB PO SCH (21:55)
--- NOTE | 2019-05-20 23:28 | P.PN ---
Subjective Progress Note Date: 05/20/19 Principal diagnosis: Controlled hypertension Patient is a 79-year-old female with a past medical history of hypertension, hyperlipidemia, history of CVA/TIA with no residual weakness, borderline diabetes with no medications came to ER with complaints of lightheadedness and feeling of passing out this morning. Patient was discharged from the hospital yesterday. Patient was admitted to the hospital, days back due to complaints of headache and uncontrolled blood pressure with SBP greater than 190s. Patient was worked up for stroke including CT head and CT angiogram of the neck and head was done, was essentially negative studies.. 2-D echo cardiac exam showed normal ejection fraction. No segmental valvular abnormality so noted. Patient's blood pressure was controlled with her home dose of lisinopril 20 mg twice a day and was sent home. Patient was noted to have blood pressure in 160s is receiving and today morning when she took at home systolic was 187 mm hg, abraham stanley is also anxious about her blood pressure. Otherwise denied any chest pain or shortness of breath. No nausea vomiting or abdominal pain or diarrhea. No fever no chills. No cough or sputum production. Patient had previous workup for stroke including DOUGLAS and stress test was done. media monitor was also placed which showed no evidence of atrial fibrillation. Patient says that she was also tested for secondary hypertension including renal ultrasound and renin/Aldosterone levels. Chest x-ray showed no acute cardio pulmonary process. EKG normal sinus rhythm Troponin 1 negative UA negative for infection 05/19/2019 Patient denied any complaints of chest pain or shortness of breath. Blood pressure is better controlled. Continued on lisinopril 20 mg twice a day and metoprolol dose increased to 25 mg twice a day. Cardiology has seen the patient. TSH and free cortisol levels within normal limits. Continue to monitor blood pressure for another 24 hours. Possible discharge tomorrow. Current medications reviewed. Objective - Vital Signs Vital signs: Vital Signs Temp 97.7 F 05/20/19 16:00 Pulse 63 05/20/19 16:00 Resp 18 05/20/19 16:00 BP 106/64 05/20/19 16:00 Pulse Ox 96 05/20/19 16:00 Intake & Output 05/20/19 05/20/19 05/21/19 06:59 18:59 06:59 Intake Total 0 1330 Balance 0 1330 Weight 62 kg Intake: Oral 0 1330 Other: # Voids 3 - Exam PHYSICAL EXAMINATION: Patient is lying in the bed comfortably, no acute distress, awake alert and oriented.. HEENT: Normocephalic. Neck is supple. Pupils reactive. Nostrils clear. Oral cavity is moist. Ears reveal no drainage. Neck reveals no JVD, carotid bruits, or thyromegaly. CHEST EXAMINATION: Trachea is central. Symmetrical expansion. Lung shea clear to auscultation and percussion. CARDIAC: Normal S1, S2 with no gallops. No murmurs ABDOMEN: Soft. Bowel sounds normal. No organomegaly. No abdominal bruits. Extremities: reveal no edema. No clubbing or cyanosis Neurologically awake, alert, oriented x3 with well-coordinated movements. No focal deficits noted Skin: No rash or skin lesions. Psychiatric: Coperative. Nonsuicidal Musculoskeletal: No joint swelling or deformity. Normal range of motion. - Labs CBC & Chem 7: 05/19/19 14:10 05/19/19 14:10 Labs: Abnormal Lab Results - Last 24 Hours (Table) 05/19/19 Range/Units 14:10 HDL Cholesterol 80 H (40-60) mg/dL Assessment and Plan Assessment: Dizziness and lightheadedness likely due to hypertensive urgency. Uncontrolled hypertension/hypertensive urgency. Anxiety History of CVA 2 years ago. History of vertigo Moderate diabetes currently not on any medications. DVT prophylaxis with heparin subcu Plan: Patient will be continued on telemetry monitoring. Start back on home blood pressure medication lisinopril 20 mg twice a day and also started with metoprolol 12.5 mg-->25 mg twice daily due to tachycardia and anxiety. Monitor blood pressure closely. Patient had previous workup done at [facility]. Cardiology is following.. Discussed with the patient and her family at bedside in detail. Time with Patient: Greater than 30
[2019-05-21] MEDS: HEPARIN SODIUM,PORCINE 5,000 UNIT/ML 1 ML VIAL SQ SCH ×2 (01:30→09:04)
[2019-05-21] MEDS: CLOPIDOGREL 75 MG TAB PO SCH (06:28)
[2019-05-21] MEDS: CYANOCOBALAMIN 500 MCG TAB PO SCH (06:28)
[2019-05-21] MEDS: FOLIC ACID 1 MG TAB PO SCH (06:28)
[2019-05-21] MEDS ORDERED: LISINOPRIL 20 MG TAB PO SCH (09:00)
[2019-05-21] MEDS: LISINOPRIL 20 MG TAB PO SCH (09:04)
[2019-05-21] MEDS: METOPROLOL TARTRATE 25 MG TAB PO SCH (09:04)
--- NOTE | 2019-05-21 12:01 | P.PN ---
Subjective HISTORY OF PRESENTING ILLNESS This is a pleasant 79-year-old female past medical history significant for hypertension, dyslipidemia, vertigo and CVA. She denies prior history of coronary artery disease. She follows in the office with Dr. Richard. The patient was seen and examined resting comfortably in bed in no acute distress. She denies symptoms of chest pain, shortness of breath, dizziness or palpitations. Currently maintained on metoprolol 25 mg twice a day and lisinopril 20 mg twice a day. She is concerned heart rate is running in the 50s. She denies feeling dizziness at that time. Telemetry tracings reveal sinus bradycardia. Blood pressure 123/73 heart rate 58 afebrile maintaining oxygen saturation on room air. PHYSICAL EXAMINATION CONSTITUTIONAL: No apparent distress. HEENT: Head is normocephalic. Pupils are equal, round. Sclerae anicteric. Mucous membranes of the mouth are moist. No JVD. No carotid bruit. CHEST EXAMINATION: Lungs are clear to auscultation. No chest wall tenderness is noted on palpation or with deep breathing. HEART EXAMINATION: Regular rate and rhythm. S1, S2 heard. No murmurs, gallops or rub. EXTREMITIES: 2+ peripheral pulses, no lower extremity edema and no calf tenderness. ASSESSMENT Uncontrolled hypertension Dyslipidemia History of CVA PLAN Advised the patient to ambulate in the [place] and assess heart rate and symptoms of dizziness. If she remains greater than 50 with no dizziness or shortness of breath then she may be discharged home. Follow up in the office with Dr. Richard. Advised the patient to keep a blood pressure diary to bring to her follow-up appointment. Nurse Practitioner note has been reviewed, I agree with a documented findings and plan of care. Patient was seen and examined. Objective - Vital Signs Vital signs: Vital Signs Temp 98.9 F 05/21/19 08:24 Pulse 58 L 05/21/19 08:24 Resp 16 05/21/19 08:24 BP 123/73 05/21/19 08:24 Pulse Ox 96 05/21/19 08:24 Intake & Output 05/20/19 05/21/19 05/21/19 18:59 06:59 18:59 Intake Total 1330 0 180 Output Total 300 Balance 1330 0 -120 Weight 62 kg Intake: Oral 1330 0 180 Output: Urine 300 Other: Voiding Method Toilet # Voids 3 - Labs CBC & Chem 7: 05/19/19 14:10 05/19/19 14:10
[2019-05-21 13:04] VITALS: BP 126/66; PULSE 53; RESP 18; TEMP 98
[2019-05-25 22:35] LABS: Metanephrine, Free <25 pg/mL (< OR = 57); Normetanephrine, Free 85 pg/mL (< OR = 148); Total, Free (MN + NMN) 85 pg/mL (< OR = 205)
== END 2019-05-21 16:10 | disposition home or self-care (01) ==
LOC: EC 13:07 → 3SCARD 17:09
PROVIDERS: ADMIT Hospitalist; ATTEND Hospitalist
DX: I16.0 Hypertensive urgency (principal); I10 Essential (primary) hypertension; R42 Dizziness and giddiness; E78.5 Hyperlipidemia, unspecified; Z86.73 Personal history of transient ischemic attack (TIA), and cerebral infarction without residual deficits; Z85.828 Personal history of other malignant neoplasm of skin; E11.9 Type 2 diabetes mellitus without complications; F41.9 Anxiety disorder, unspecified; Z79.02 Long term (current) use of antithrombotics/antiplatelets; Z79.899 Other long term (current) drug therapy; Z88.0 Allergy status to penicillin; Z88.5 Allergy status to narcotic agent; Z88.8 Allergy status to other drugs, medicaments and biological substances; Z80.3 Family history of malignant neoplasm of breast; Z80.0 Family history of malignant neoplasm of digestive organs; Z82.49 Family history of ischemic heart disease and other diseases of the circulatory system; Z90.49 Acquired absence of other specified parts of digestive tract; Z90.710 Acquired absence of both cervix and uterus; Z90.89 Acquired absence of other organs
CPT/HCPCS: 93005 ×2; 99285; 36415; 83835; 80061; 80053; 84443 ×2; 82533 ×2; 83735; 84484 ×2; 85025; 85610; 85730; 81003; 71046; G0378 ×3; J1644 ×2

== ENCOUNTER 2019-10-18 09:02 | Day surgery (SDC) | payer MEDICARE, BC ==
[~2019-10-18 09:02] MED LIST: LACTATED RINGERS 1,000 ML IV SCH; LIDOCAINE 1% (10MG/ML) FOR IV START INTRADERMA PRN
--- NOTE | 2019-10-18 09:05 | P.GSHP ---
History of Present Illness H&P Date: 10/18/19 CHIEF COMPLAINT: Colon screen HISTORY OF PRESENT ILLNESS: The patient is a 79-year-old female who presents for colon screen. Lower endoscopy was offered for further evaluation and management. PAST MEDICAL HISTORY: Please see list. PAST SURGICAL HISTORY: Please see list. MEDICATIONS: Please see list. ALLERGIES: Please see list. SOCIAL HISTORY: No illicit drug use FAMILY HISTORY: No reports of Crohn disease or ulcerative colitis. REVIEW OF ORGAN SYSTEMS: CONSTITUTIONAL: No reports of fevers or chills. PHYSICAL EXAM: VITAL SIGNS: Stable GENERAL: Well-developed pleasant in no acute distress. HEENT: No scleral icterus. Extraocular movements grossly intact. Moist buccal mucosa. NECK: Supple without lymphadenopathy. CHEST: Unlabored respirations. Equal bilateral excursions. CARDIOVASCULAR: Regular rate and rhythm. Distal 2+ pulses. ABDOMEN: Soft, nontender, nondistended. MUSCULOSKELETAL: No clubbing, cyanosis, or edema. ASSESSMENT: 1. Colon screen. PLAN: 1. 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 She uses no assistive device. She drives. She has a medialert necklace. Past Alcohol Use History: None Reported Past Drug Use History: None Reported - Past Family History Sister(s) Family Medical History: Cancer Additional Family Medical History / Comment(s): breast cancer Brother(s) Family Medical History: Cancer Additional Family Medical History / Comment(s): colon cancer Father Additional Family Medical History / Comment(s): Enlarged heart Mother Family Medical History: Congestive Heart Failure (CHF) Medications and Allergies Home Medications Medication Instructions Recorded Confirmed Type Cholecalciferol (Vitamin D3) 2,000 unit PO DAILY@30 12/01/17 10/16/19 History [Vitamin D3] Cinnamon Bark [Cinnamon] 500 mg PO DAILY@30 12/01/17 10/16/19 History Clopidogrel [Plavix] 75 mg PO DAILY@30 01/03/18 10/16/19 History Folic Acid 0.4 mg PO DAILY@62901/03/18 10/16/19 History Cyanocobalamin (Vitamin B-12) 2,500 mcg PO DAILY@30 05/16/19 10/16/19 History [Vitamin B-12] Lisinopril 20 mg PO BID@0630,1830 05/16/19 10/16/19 History Atorvastatin [Lipitor] 40 mg PO HS@1830 05/19/19 10/16/19 History Metoprolol Tartrate [Lopressor] 12.5 mg PO 1200 10/16/19 10/16/19 History acetaZOLAMIDE [Diamox] 250 mg PO BID 10/16/19 10/16/19 History Allergies Allergy/AdvReac Type Severity Reaction Status Date / Time amoxicillin Allergy Rash/Hives Verified 10/16/19 10:45 codeine Allergy Rash/Hives/ Verified 10/16/19 10:45 Hallucinati ons morphine Allergy Rash/Hives/ Verified 10/16/19 10:45 Hallucinati ons Penicillins Allergy Rash/Hives Verified 10/16/19 10:45 hydromorphone [From Dilaudid] AdvReac Hallucinati Verified 10/16/19 10:45 ons ondansetron [From Zofran] AdvReac Nausea & Verified 10/16/19 10:45 Vomiting
[2019-10-18 10:03] VITALS: TEMP 96.8
[2019-10-18] MEDS ORDERED: LIDOCAINE 1% INJ 10MG/ML (20 ML MDV) ONE (10:14)
[2019-10-18] MEDS ORDERED: PROPOFOL 10 MG/ML 20 ML VIAL IV ONE (10:14)
[2019-10-18] MEDS ORDERED: IV FLUID CONTINUATION 1,000 ML IV ONE (10:35)
--- NOTE | 2019-10-18 10:39 | P.PCN ---
Date of Procedure: 10/18/19 Description of Procedure: PREOPERATIVE DIAGNOSIS: Colonoscopy screening. POSTOPERATIVE DIAGNOSIS: Colonoscopy screening. Diverticulosis, scattered, moderate to severe OPERATION: Colonoscopy to the cecum, ileocecal valve and appendiceal orifice. SURGEON: Vernell Valderrama MD. ANESTHESIA: MAC. INDICATIONS: The patient is a 79-year-old female who presents for colonoscopy screening. Last colonoscopy over 10 years ago. No prior history of colon polyps or family history of colon cancer. Benefits and risks were described and informed consent was obtained. DESCRIPTION OF PROCEDURE: The patient had undergone Suprep. She had been brought into the operating room and laid in the left lateral decubitus position. After adequate intravenous sedation, the rectum was examined with 2% lidocaine jelly. No external hemorrhoids were encountered. The rectal tone was within normal limits. No lesions were palpated in the rectal vault. An Olympus colonoscope was initially advanced to the sigmoid colon and converted to pediatric colonoscope due to small caliber of sigmoid colon. The scope was advanced until the cecum, ileocecal valve and appendiceal orifice were clearly viewed. The prep was excellent with clear visualization of the mucosal folds. The scope was removed with visualization of each mucosal fold. Moderate to severe scattered diverticulosis was encountered. No colonic polyps were found. No evidence of focal colitis was found. Retroflexion of the scope demonstrated no internal hemo rrhoids. The colon was desufflated. The patient had tolerated the procedure well. Withdrawal time was over 6 minutes. FINDINGS: Aronchick preparation quality scale 1 (1-5) No internal hemorrhoids No external prolapsed hemorrhoids. No arteriovenous malformations. No adenomatous polyps. No focal colitis. RECOMMENDATIONS: Lower in 10 years, 2030 or Cologuard. Otherwise, colonoscopy as needed Plan - Discharge Summary Discharge Rx Participant: No New Discharge Prescriptions: Continue Cholecalciferol (Vitamin D3) [Vitamin D3] 2,000 unit PO DAILY@0630 Cinnamon Bark [Cinnamon] 500 mg PO DAILY@0630 Clopidogrel [Plavix] 75 mg PO DAILY@0630 Folic Acid 0.4 mg PO DAILY@0630 Lisinopril 20 mg PO BID@0630,1830 Cyanocobalamin (Vitamin B-12) [Vitamin B-12] 2,500 mcg PO DAILY@0630 Atorvastatin [Lipitor] 40 mg PO HS@1830 acetaZOLAMIDE [Diamox] 250 mg PO BID Metoprolol Tartrate [Lopressor] 12.5 mg PO 1200 Discharge Medication List Cholecalciferol (Vitamin D3) [Vitamin D3] 2,000 unit PO DAILY@62912/01/17 [History] Cinnamon Bark [Cinnamon] 500 mg PO DAILY@62912/01/17 [History] Clopidogrel [Plavix] 75 mg PO DAILY@62901/03/18 [History] Folic Acid 0.4 mg PO DAILY@62901/03/18 [History] Cyanocobalamin (Vitamin B-12) [Vitamin B-12] 2,500 mcg PO DAILY@62905/16/19 [History] Lisinopril 20 mg PO BID@629,182905/16/19 [History] Atorvastatin [Lipitor] 40 mg PO HS@182905/19/19 [History] Metoprolol Tartrate [Lopressor] 12.5 mg PO 1200 10/16/19 [History] acetaZOLAMIDE [Diamox] 250 mg PO BID 10/16/19 [History] Follow up Appointment(s)/Referral(s): Vernell Valderrama MD [STAFF PHYSICIAN] - As Needed Patient Instructions/Handouts: *Surgery [facility] - (Anesthesia) Endoscopy Discharge Instructions, Colonoscopy (DC) Activity/Diet/Wound Care/Special Instructions: Colonoscopy in 10 years, 2030 or Cologuard. Otherwise as needed Discharge Disposition: HOME SELF-CARE
[2019-10-18 10:55] VITALS: BP 112/57; PULSE 76; RESP 18
== END 2019-10-18 11:30 | disposition home or self-care (01) ==
LOC: ORWHC2ENDO 09:02
PROVIDERS: ATTEND Surgery Plastic and Reconstructive Surgery
DX: Z12.11 Encounter for screening for malignant neoplasm of colon (principal); K57.30 Diverticulosis of large intestine without perforation or abscess without bleeding; Z80.0 Family history of malignant neoplasm of digestive organs; I10 Essential (primary) hypertension; G91.2 (Idiopathic) normal pressure hydrocephalus; E11.9 Type 2 diabetes mellitus without complications; E78.5 Hyperlipidemia, unspecified; Z79.02 Long term (current) use of antithrombotics/antiplatelets; Z79.899 Other long term (current) drug therapy; Z88.0 Allergy status to penicillin; Z88.5 Allergy status to narcotic agent; Z88.8 Allergy status to other drugs, medicaments and biological substances; Z90.710 Acquired absence of both cervix and uterus; Z90.49 Acquired absence of other specified parts of digestive tract; Z90.89 Acquired absence of other organs; Z98.890 Other specified postprocedural states; Z86.73 Personal history of transient ischemic attack (TIA), and cerebral infarction without residual deficits; Z85.828 Personal history of other malignant neoplasm of skin; Z87.440 Personal history of urinary (tract) infections; Z80.3 Family history of malignant neoplasm of breast; Z82.49 Family history of ischemic heart disease and other diseases of the circulatory system
CPT/HCPCS: J2001; J2704; G0105

== ENCOUNTER 2020-09-25 10:49 | Day surgery (SDC) | payer MEDICARE, BC ==
[2020-09-23 17:23] VITALS: BMI 26.4
[~2020-09-25 10:49] MED LIST changes: +DEXAMETHASONE SOD PHOSPHATE 4 MG/ML 1 ML VIAL IV ONE; +MOXIFLOXACIN HCL 0.5% DROPS 3 ML BTL OP PRN; +TETRACAINE 0.5% OPHTH (PF) DROPS 4 ML BTL OP PRN; +TIMOLOL 0.5% OPHTH DROPS 5 ML BTL OP PRN
[2020-09-25] MEDS: CYCLOPENTOLATE 1% OPHTH SOLN 2 ML BTL OP PRN ×3 (11:30→11:42)
[2020-09-25 11:32] VITALS: RESP 16; TEMP 97.5
[2020-09-25] MEDS: PHENYLEPHRINE 2.5% OPHTH DRP 2ML OP PRN ×3 (11:33→11:45)
[2020-09-25] MEDS ORDERED: fentaNYL (PF) 50 MCG/ML 2 ML AMP ONE (12:28)
[2020-09-25] MEDS ORDERED: HYALURONATE SODIUM INTRAOCULAR 1 EACH SYRINGE (12MG/ML) INTRAOCULA ONE (12:50)
[2020-09-25] MEDS ORDERED: BALANCED SALT IRRIG SOLN COMB2 15 ML IRRIG.SOLN IRRIGATION ONE (12:50)
[2020-09-25] MEDS ORDERED: LIDOCAINE 1% (PF) 10MG/ML VIAL MISCELLANE ONE (12:50)
[2020-09-25] MEDS ORDERED: EPINEPHrine (PF) 0.3 ML in BALANCED SALT IRRIG SOLN COMB2 500 ML IRRIGATION ONE (12:52)
--- NOTE | 2020-09-25 13:05 | P.OP ---
Date of Procedure: 09/25/20 Preoperative Diagnosis: NS & CS Postoperative Diagnosis: same Procedure(s) Performed: PIOL, OD Implants: [id number] 21.50 Anesthesia: MAC Surgeon: William Downs Pathology: none sent Condition: stable Disposition: same day Indications for Procedure: blurry vision Operative Findings: no complications
[2020-09-25 13:29] VITALS: BP 145/68; PULSE 65
--- NOTE | 2020-09-26 07:00 | OP ---
OPERATIVE REPORT DATE OF SURGERY: September 25, 2020 PROCEDURE PERFORMED: Phacoemulsification of cataract and intraocular lens implant of the right eye. 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 POSTOPERATIVE DIAGNOSES: Nuclear sclerosis. Cortical sclerosis. OPERATION: Clear cornea phacoemulsification of cataract OD eye. ESTIMATED BLOOD LOSS: Zero. SPECIMEN TAKEN: None. NARRATIVE: After obtaining the appropriate consent, the patient was brought to the Operating Room where the patient was placed under cardiac monitoring and prepped and draped in the usual sterile manner. At the 11 o'clock position a 15 degree super sharp blade was used to create a paracentesis followed by instillation of 1% Xylocaine MPF 50:50 mix with BSS into the anterior chamber. This was followed by Amvisc to stabilize the anterior chamber. At the 9 o'clock position a self-sealing corneal flap incision was created using 2.8 mm michel keratome. A cystotome was used to initiate a continuous tear capsulorrhexis which was completed with the Utrata forceps. A Binkhorst cannula was used to hydrodissect the lens nucleus followed by hydrodelineation. Phacoemulsification of the lens was performed utilizing phacochop in 12.45 seconds at 10% power. The remaining cortical material was removed using the irrigation aspiration mode followed by additional 1% Xylocaine MPF into the anterior chamber followed by viscoelastic to stabilize the capsular bag. A [employer] MX60E 21.5 diopter posterior chamber lens was placed into the capsular bag without difficulty. The remaining viscoelastic material was removed from the anterior chamber with the irrigation/aspiration. Balanced salt solution was used to normalize the intraocular pressure. The incision was checked for watertight integrity. The patient then received two drops of 0.5% timolol followed by two drops Vigamox, was lightly patched and shielded in the usual manner. There were no complications from the procedure. The patient tolerated the procedure well and was returned to recovery in good condition. MMODL / IJN: [id number] /
== END 2020-09-25 13:44 | disposition home or self-care (01) ==
LOC: OR 10:49
PROVIDERS: ATTEND Ophthalmology
DX: H25.13 Age-related nuclear cataract, bilateral (principal); H40.003 Preglaucoma, unspecified, bilateral; H47.323 Drusen of optic disc, bilateral; I10 Essential (primary) hypertension; E78.5 Hyperlipidemia, unspecified; E11.9 Type 2 diabetes mellitus without complications; Z86.73 Personal history of transient ischemic attack (TIA), and cerebral infarction without residual deficits; Z90.710 Acquired absence of both cervix and uterus; Z90.89 Acquired absence of other organs; Z98.890 Other specified postprocedural states; Z79.02 Long term (current) use of antithrombotics/antiplatelets; Z79.899 Other long term (current) drug therapy; Z88.5 Allergy status to narcotic agent; Z88.0 Allergy status to penicillin
CPT/HCPCS: 66984; C1780; J0171; J3010; J2001

== ENCOUNTER → 2020-10-16 | Day surgery (SDC) | payer MEDICARE, BC ==
[2020-10-14 16:01] VITALS: BMI 26.2
[~2020-10-16] MED LIST changes: +BALANCED SALT IRRIG SOLN COMB2 15 ML IRRIG.SOLN INTRAOCULA ONE; -DEXAMETHASONE SOD PHOSPHATE 4 MG/ML 1 ML VIAL IV ONE; +EPINEPHrine (PF) 0.3 ML in BALANCED SALT IRRIG SOLN COMB2 500 ML IRRIGATION ONE; +HYALURONATE SODIUM INTRAOCULAR 1 EACH SYRINGE (12MG/ML) INTRAOCULA ONE; +LIDOCAINE 1% (PF) 10MG/ML VIAL MISCELLANE ONE; +MIDAZOLAM 2 MG/2 ML VIAL ONE
[2020-10-16] MEDS: CYCLOPENTOLATE 1% OPHTH SOLN 2 ML BTL OP PRN ×3 (12:00→12:12)
[2020-10-16] MEDS: PHENYLEPHRINE 2.5% OPHTH DRP 2ML OP PRN ×3 (12:03→12:15)
[2020-10-16 12:07] VITALS: RESP 16; TEMP 98.7
--- NOTE | 2020-10-16 13:15 | P.OP ---
Date of Procedure: 10/16/20 Preoperative Diagnosis: NS & CS Postoperative Diagnosis: same Procedure(s) Performed: PIOL, OS Implants: MX60E 22.00 Anesthesia: MAC Surgeon: William Downs Pathology: none sent Condition: stable Disposition: same day Indications for Procedure: blurry vision Operative Findings: no complications
[2020-10-16 13:41] VITALS: BP 107/66; PULSE 57
--- NOTE | 2020-10-17 09:52 | OP ---
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 POSTOPERATIVE DIAGNOSES: Nuclear sclerosis. Cortical sclerosis. OPERATION: Clear cornea phacoemulsification of cataract of the left/OS eye. ESTIMATED BLOOD LOSS: Zero. SPECIMEN TAKEN: None. NARRATIVE: After obtaining the appropriate consent, the patient was brought to the Operating Room where the patient was placed under cardiac monitoring and prepped and draped in the usual sterile manner. At the 5 o'clock position a 15 degree super sharp blade was used to create a paracentesis followed by instillation of 1% Xylocaine MPF 50:50 mix with BSS into the anterior chamber. This was followed by Amvisc to stabilize the anterior chamber. At the 3 o'clock position a self-sealing corneal flap incision was created using 2.8 mm michel keratome. A cystotome was used to initiate a continuous tear capsulorrhexis which was completed with the Utrata forceps. A Binkhorst cannula was used to hydrodissect the lens nucleus followed by hydrodelineation. Phacoemulsification of the lens was performed utilizing phacochop in 13.05 seconds at 12% power. The remaining cortical material was removed using the irrigation aspiration mode followed by additional 1% Xylocaine MPF into the anterior chamber followed by viscoelastic to stabilize the capsular bag. A [employer] MX60E 22.0 diopter posterior chamber lens was placed into the capsular bag without difficulty. The remaining viscoelastic material was removed from the anterior chamber with the irrigation/aspiration. Balanced salt solution was used to normalize the intraocular pressure. The incision was checked for watertight integrity. The patient then received two drops of 0.5% timolol followed by two drops Vigamox, was lightly patched and shielded in the usual manner. There were no complications from the procedure. The patient tolerated the procedure well and was returned to recovery in good condition. MMODL / IJN: [id number] /
== END | disposition home or self-care (01) ==
LOC: OR 11:44
PROVIDERS: ATTEND Ophthalmology
DX: H25.12 Age-related nuclear cataract, left eye (principal); Z86.73 Personal history of transient ischemic attack (TIA), and cerebral infarction without residual deficits; Z88.5 Allergy status to narcotic agent; Z88.0 Allergy status to penicillin; Z88.8 Allergy status to other drugs, medicaments and biological substances; I10 Essential (primary) hypertension; E78.5 Hyperlipidemia, unspecified
CPT/HCPCS: 66984; C1780; J2250; J0171; J2001